=== PATIENT | male | born 1960 | race Caucasian/White ===

== ENCOUNTER 2019-05-02 15:29 | Outpatient (CLI) | payer OTHER, SELFPAY ==
--- NOTE | ~2019-05-02 | XR_ITS ---
EXAMINATION: XR chest 2V DATE: 05/02/2019 15:54 INDICATION: Chronic heart failure not due to hypertension. Chest pain and shortness of breath. TECHNIQUE: Frontal and lateral views of the chest were obtained. COMPARISON: Chest 2 views 01/16/2019, chest CT 05/28/2018 FINDINGS: There are lucencies at the lung apices, consistent with emphysema. No pleural effusion or p neumothorax. Calcified left hilar lymph nodes are consistent with old granulomatous disease. The hear t size is normal. IMPRESSION: 1. Emphysema. Reviewed, dictated and finalized at location A. [facility] IMPRESSION: 1. Emphysema.
[2019-05-02 19:00] LABS: Basophils Absolute Auto 0.1 K/mm3 (0.0-0.1); Basophils Percent Auto 1.3 % (0.2-1.2); Eosinophils Absolute Auto 0.3 K/mm3 (0-0.3); Eosinophils Percent Auto 5.5 % (0-4.4); Hematocrit 43.5 % (42.0-52.0); Hemoglobin 14.1 g/dL (14.0-18.0); Immature Granulocyte Absolute 0.01 K/mm3 (0.00-0.031); Immature Granulocyte Percent A 0.2 % (0-0.5); Lymphocytes Absolute Auto 2.55 K/mm3 (0.9-3.2); Lymphocytes Percent Auto 42.6 % (18.3-44.2); Mean Corpuscular HGB Conc 32.4 g/dl (32-36); Mean Corpuscular Hemoglobin 27.9 pg (26-34); Mean Platelet Volume 9.8 fl (7.4-10.4); Monocytes Absolute Auto 0.4 K/mm3 (0.1-0.6); Monocytes Percent Auto 6.7 % (2.6-8.5); Neutrophils Absolute Auto 2.6 K/mm3 (1.3-6.7); Neutrophils Percent Auto 43.7 % (45.5-73.1); Platelet Count Result 175 k/mm3 (150-375); Red Blood Count 5.06 M/mm3 (4.6-6.20)
[2019-05-02 19:11] LABS: Alanine Aminotransferase 28 U/L (4-50); Albumin Level 4.6 g/dL (3.5-5.1); Alkaline Phosphatase 103 U/L (38-126); Aspartate Amino Transferase 28 U/L (17-59); Bilirubin,Total 0.6 mg/dL (0.2-1.3); Blood Urea Nitrogen 11 mg/dL (9-20); Calcium 9.7 mg/dL (8.4-10.2); Carbon Dioxide 29 mmol/L (22-30); Chloride 104 mmol/L (98-107); Estimated Glomerular Filt Rate > 60; Glucose 89 mg/dL (75-110); Potassium 3.8 mmol/L (3.4-5.0); Sodium 144 mmol/L (137-145)
[2019-05-02 19:19] LABS: NT Pro B Type Natriuretic Pept 550 PG/ML (5-100)
== END 2019-05-02 15:30 | disposition home or self-care (01) ==
LOC: ANHLAB 15:32
PROVIDERS: PCP Family Medicine; Visit Provider Nurse Practitioner Adult Health
DX: I25.5 Ischemic cardiomyopathy (principal); J43.9 Emphysema, unspecified
CPT/HCPCS: 36415; 71046; 80053; 83880; 85025

== ENCOUNTER 2019-09-15 09:20 | Outpatient (CLI) | payer OTHER, SELFPAY ==
[2019-09-15 10:51] LABS: Basophils Absolute Auto 0.1 K/mm3 (0.0-0.1); Basophils Percent Auto 0.8 % (0.2-1.2); Eosinophils Absolute Auto 0.3 K/mm3 (0-0.3); Eosinophils Percent Auto 4.1 % (0-4.4); Hematocrit 42.3 % (42.0-52.0); Hemoglobin 13.9 g/dL (14.0-18.0); Immature Granulocyte Absolute 0.01 K/mm3 (0.00-0.031); Immature Granulocyte Percent A 0.1 % (0-0.5); Lymphocytes Absolute Auto 2.38 K/mm3 (0.9-3.2); Lymphocytes Percent Auto 33.7 % (18.3-44.2); Mean Corpuscular HGB Conc 32.9 g/dl (32-36); Mean Corpuscular Hemoglobin 28.5 pg (26-34); Mean Corpuscular Volume 86.7 fl (80-100); Mean Platelet Volume 9.3 fl (7.4-10.4); Monocytes Absolute Auto 0.5 K/mm3 (0.1-0.6); Monocytes Percent Auto 6.8 % (2.6-8.5); Neutrophils Absolute Auto 3.9 K/mm3 (1.3-6.7); Neutrophils Percent Auto 54.5 % (45.5-73.1); Platelet Count Result 186 k/mm3 (150-375); Red Blood Count 4.88 M/mm3 (4.6-6.20); Red Cell Distribution Width 12.6 % (11.5-14.5); White Blood Count 7.1 K/mm3 (4.5-10.0)
[2019-09-15 10:53] LABS: Alanine Aminotransferase 24 U/L (4-50); Albumin Level 4.8 g/dL (3.5-5.1); Alkaline Phosphatase 102 U/L (38-126); Aspartate Amino Transferase 27 U/L (17-59); Bilirubin,Total 0.5 mg/dL (0.2-1.3); Blood Urea Nitrogen 15 mg/dL (9-20); Calcium 10.3 mg/dL (8.4-10.2); Carbon Dioxide 29 mmol/L (22-30); Chloride 104 mmol/L (98-107); Estimated Glomerular Filt Rate > 60; Glucose 104 mg/dL (75-110); Potassium 4.7 mmol/L (3.4-5.0); Sodium 140 mmol/L (137-145)
[2019-09-15 11:05] LABS: Hemoglobin A1C 5.8 % (<5.7)
== END 2019-09-15 09:21 | disposition home or self-care (01) ==
PROVIDERS: PCP Family Medicine; Visit Provider Nurse Practitioner Adult Health
DX: K62.5 Hemorrhage of anus and rectum (principal); I25.5 Ischemic cardiomyopathy; Z87.898 Personal history of other specified conditions
CPT/HCPCS: 36415; 80053; 83036; 85025

== ENCOUNTER 2019-10-06 15:21 | Observation (INO) | payer OTHER, SELFPAY ==
[2019-10-06] VITALS (12 sets, daily range): BP systolic 113–186; BP diastolic 67–132; PULSE 48–64; RESP 11–20; TEMP 36.7–36.8; O2SAT 97–100; BMI 30.7
--- NOTE | ~2019-10-06 | XR_ITS ---
XR chest 2V 10/06/2019 16:01 Indication: Chest pain Procedure: AP and lateral views of the chest Comparison: Comparison to multiple prior studies sequentially, with oldest reviewed study dated 04/06. Findings: Heart size normal. No focal air space disease, pulmonary edema, pleural effusion or suspect ed pneumothorax. Impression: 1: No acute cardiopulmonary disease. Reviewed, dictated and finalized at location B. Impression: 1: No acute cardiopulmonary disease.
--- NOTE | ~2019-10-06 | CT_ITS ---
EXAMINATION: Janes Yung MD DATE: 10/06/2019 17:15 INDICATION: Chest pain. TECHNIQUE: Computed tomographic angiography (CTA) of the chest, abdomen, and pelvis was performed wit h 100 mL Omnipaque-350 intravenous contrast. Automated exposure control and iterative reconstruction technique were employed. The dose-length product was 1299.76 mGy-cm. Maximum intensity projection 3D- reconstructions of the aorta and other arteries were constructed by the technologist on a separate wo rkstation. COMPARISON: CT chest 05/28/2018, CT abdomen and pelvis 04/06/2017 FINDINGS: CHEST CTA: There is moderate emphysema. There is mild atelectasis bilaterally. No pleural effusion. There is lef t ventricular enlargement of the heart. There are coronary artery calcifications. No pericardial effu iza. Thoracic aorta is normal in caliber. No aneurysm or dissection. Calcified left hilar lymph node s are consistent with old granulomatous disease. There is moderate thoracic spondylosis. ABDOMEN AND PELVIS CTA: Calcifications in the liver and spleen are consistent with old granulomatous disease. The gallbladder , pancreas, adrenal glands, and right kidney are normal. There is a 1.7 cm cyst in left kidney. The p rostate is mildly enlarged. There is a small left inguinal hernia containing fat. There is diverticul osis of the colon without evidence of diverticulitis. There are no dilated loops of bowel. The append ix is normal. Abdominal aorta is normal in caliber. There is mild stenosis of celiac axis. There is n o significant stenosis of superior mesenteric artery, the renal arteries, or inferior mesenteric lulu ry. There are no pathologically enlarged lymph nodes. There is no free intraperitoneal fluid. There i s mild lumbar spondylosis. IMPRESSION: 1. No aortic aneurysm or dissection. 2. Moderate emphysema. 3. Small left inguinal hernia containing fat. Reviewed, dictated and finalized at location A.
--- NOTE | 2019-10-06 15:31 | ECG_ITS ---
Measurements Intervals [place] Rate: 51 P: 49 WI: 145 QRS: -6 QRSD: 101 T: 83 QT: 431 QTc: 398 Interpretive Statements SINUS BRADYCARDIA ANTEROSEPTAL INFARCT, AGE INDETERMINATE BORDERLINE ST-T WAVE ABNORMALITY- LAT/HIGH LAT LEADS ABNORMAL ECG Electronically Signed On 10-06-2019 16:06:04 CDT by Jona Argueta D.O.
[2019-10-06 15:47] LABS: Basophils Absolute Auto 0.1 K/mm3 (0.0-0.1); Eosinophils Absolute Auto 0.3 K/mm3 (0-0.3); Eosinophils Percent Auto 4.5 % (0-4.4); Hematocrit 43.3 % (42.0-52.0); Hemoglobin 14.5 g/dL (14.0-18.0); Immature Granulocyte Absolute 0.01 K/mm3 (0.00-0.031); Immature Granulocyte Percent A 0.2 % (0-0.5); Lymphocytes Absolute Auto 2.38 K/mm3 (0.9-3.2); Lymphocytes Percent Auto 39.3 % (18.3-44.2); Mean Corpuscular HGB Conc 33.5 g/dl (32-36); Mean Corpuscular Hemoglobin 28.9 pg (26-34); Mean Corpuscular Volume 86.4 fl (80-100); Mean Platelet Volume 9.7 fl (7.4-10.4); Monocytes Absolute Auto 0.3 K/mm3 (0.1-0.6); Monocytes Percent Auto 4.8 % (2.6-8.5); Neutrophils Percent Auto 50.2 % (45.5-73.1); Platelet Count Result 166 k/mm3 (150-375); Red Blood Count 5.01 M/mm3 (4.6-6.20); Red Cell Distribution Width 12.4 % (11.5-14.5); White Blood Count 6.1 K/mm3 (4.5-10.0)
[2019-10-06 15:56] LABS: INR 1.1; Prothrombin Time 13.6 Seconds (11.1-14.7)
[2019-10-06 15:57] LABS: Partial Thromboplastin Time 29.4 SECONDS (22.3-36.8)
[2019-10-06 15:59] LABS: Blood Urea Nitrogen 10 mg/dL (9-20); Calcium 9.2 mg/dL (8.4-10.2); Carbon Dioxide 23 mmol/L (22-30); Chloride 105 mmol/L (98-107); Estimated CRCL calculation 107 ml/min; Estimated Glomerular Filt Rate > 60; Glucose 129 mg/dL (75-110); Potassium 3.4 mmol/L (3.4-5.0); Sodium 138 mmol/L (137-145)
[2019-10-06 16:09] LABS: Troponin I < 0.012 ng/mL (0.000-0.034)
[2019-10-06] MEDS: MORPHINE SULFATE 4 MG/ML INJ IV PUSH ×2 (17:19→18:09)
--- NOTE | 2019-10-06 18:17 | PC.NURSE ---
spoke to dietary, ordered food tray for pt
--- NOTE | 2019-10-06 18:18 | PC.NURSE ---
per jonh edp dr sarabjit campos to order heart healthy diet
--- NOTE | 2019-10-06 18:23 | ED.CHESTPAIN ---
HPI - Chest Pain General Chief Complaint: Chest Pain Stated Complaint: chest pain Time Seen by Provider: 10/06/19 16:20 Source: patient Mode of arrival: ambulatory Limitations: no limitations History of Present Illness HPI narrative: 59-year-old with a history of hypertension, CAD s/p stents in LAD, hyperlipidemia here with complaints of midsternal chest pain radiating into his back since early this morning. Patient states that he had a similar pain last night however was able to sleep and woke up again this morning with similar pain. He states that pain is continuous and steady in nature denies any difficulty in breathing, nausea, vomiting. No history of lifting heavy weights. MD complaint: chest pain Pertinent past history: coronary artery disease Onset (ago): hour(s) (8) Timing of current episode: constant Prior episodes: Yes Pain location: substernal Pain radiation: back Severity: moderate Quality: aching Relieving factors: nothing Exacerbating factors: nothing Treatment prior to arrival: none Risk Factors Coronary artery disease risk factors: smoking history, hyperlipidemia and hypertension Related Data Home Medications Medication Instructions Recorded Confirmed acetaminophen 500 mg capsule 500 mg PO Q6H PRN 03/09/19 aspirin 81 mg tablet,delayed 81 mg PO DAILY 03/09/19 release citalopram 20 mg tablet 20 mg PO DAILY 03/09/19 cyanocobalamin (vitamin B-12) 1,000 mcg PO DAILY 03/09/19 1,000 mcg capsule ergocalciferol (vitamin D2) 50 mcg 50 mcg PO DAILY 03/09/19 (2,000 unit) capsule fluticasone propionate 50 1 spray NASAL DAILY 03/09/19 mcg/actuation nasal spray,suspension losartan 50 mg tablet 50 mg PO DAILY 03/09/19 metoprolol tartrate 25 mg tablet 25 mg PO DAILY 03/09/19 nitroglycerin 0.4 mg sublingual 0.4 mg SUBLINGUAL Q5M PRN 03/09/19 tablet rosuvastatin 20 mg tablet 20 mg PO DAILY 03/09/19 ticagrelor 90 mg tablet 90 mg PO Q12H 03/09/19 tiotropium bromide 18 mcg capsule 1 cap INHALATION DAILY 03/09/19 with inhalation device Allergies Allergy/AdvReac Type Severity Reaction Status Date / Time bee venom protein (honey bee) Allergy Unknown Unknown Verified 10/06/19 15:34 tramadol Allergy Unknown Unknown Verified 10/06/19 15:34 Honey Bee Allergy Unknown Unknown Uncoded 10/06/19 15:34 Review of Systems Review of Systems: All systems reviewed & are unremarkable except as noted in HPI and below Constitutional: Constitutional: Reports as per HPI Eyes: Eyes: Reports as per HPI and Reports no additional eye complaints ENT: Reports as per HPI Cardiovascular: Cardiovascular: Reports as per HPI Respiratory: Respiratory: Reports no additional respiratory complaints Gastrointestinal: Gastrointestinal: Reports no additional gastrointestinal complaints Musculoskeletal: Musculoskeletal: Reports no additional musculoskeletal complaints Integumentary/Breasts: Skin/Breast: Reports system reviewed and no additional complaints, except as docu Neurologic: Reports system reviewed and no additional complaints, except as documented PMFSH Past Medical History Medical History Allergic rhinitis Anxiety Bradycardia Depression Diverticulitis Essential hypertension Eustachian tube disorder History of heroin use Hypercholesterolemia Hypokalemia Obstructive sleep apnea Prediabetes Spinal stenosis Family History Family History Other Family history of malignant neoplasm Social History Social History Smoking status: Smoker, status unknown Exam Narrative: Exam Narrative: GENERAL: Well-appearing, well-nourished, and in no acute distress. HEAD: Normocephalic, atraumatic. EYES: PERRLA and EOMI. ENT: Nares clear, no rhinorrhea or epistaxis. Mucous membranes moist. NECK: Supple. CHEST: Clear to auscultation. No respiratory
[2019-10-06] MEDS: hydrALAZINE HCL 20 MG/ML VIAL IV PUSH (18:30)
[2019-10-06 19:08] LABS: Troponin I < 0.012 ng/mL (0.000-0.034)
--- NOTE | 2019-10-06 20:42 | PC.NURSE ---
This patient, Cisco Manzo, was admitted to IMU Room 202-01 on 10/06/19 at 2016. Patient/family oriented to hospital policies and general routines including ID bracelet, bed and alarms, visiting hours, pain management, procedures, bathroom and other care routines, personal items, smoking policy, room service/diet, and visiting hours. Valuables list has been completed. Information on how to activate the Rapid Response Team has been discussed. Patient/Family are encouraged to report perceived risks to care and to ask questions if they do not understand what they are told or what they should do.
[2019-10-06] MEDS: ALBUTEROL SULFATE NEB 2.5 MG/0.5 ML INH 5 MG INHALATION (21:46)
[2019-10-06] MEDS: IPRATROPIUM BR 0.02% INH SOLN 0.5 MG/2.5 ML VIAL INHALATION (21:47)
[2019-10-06 22:03] LABS: Troponin I < 0.012 ng/mL (0.000-0.034)
[2019-10-06] MEDS: ENOXAPARIN 100 MG/ML SYRINGE SUB-Q (22:12)
--- NOTE | 2019-10-06 22:25 | PM.IMHP ---
H&P: HPI History of Present Illness Chief complaint: chest pain Narrative: Cisco Manzo is a 59 year old male who was admitted here on 01/16/2019 with a STEMI. Patient had chest pain at that time that radiated down his left arm. The patient was discharged 2 days later. The patient presented with an acute anterior wall myocardial infarction and was taken to the cardiac catheterization for emergency angiograph free and revascularization at that time. The patient received a drug-eluting stent to the LAD at that time. The patient continued to smoke cigarettes since then. He used to smoke 2 packs of cigarettes a day and then cut down to half an recently went up to 3/4 today. 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 He also has sleep apnea is intolerant of CPAP machine. The patient tells me that around 9:00 a.m. last night he was having some chest pain but then he fell asleep anywhere. He woke up at 9:00 a.m. this morning and felt fine but then at 10:00 a.m. he started had the chest pain again. He has nitro at home but did not take it. He takes a daily aspirin but did not take any extra aspirin this morning. He did not take anything to help relieve the discomfort. The patient stated that he received morphine in the emergency room here and it took the pain down to about a 2 or 3. He is still having some midsternal chest pain. Is not related to any food intake. He denies having any problems with his gallbladder and stated that his pain was severe earlier today. Was given and full-dose aspirin in the emergency room and 2 doses of morphine he was also given hydralazine as well. He does have a history of having hypertension. Cardiology has been consulted. Cardiac enzymes have been negative x2. EKG was read as bradycardia with heart rate in the 50s anterior septal infarct age indeterminate borderline ST T-wave abnormalities. Subcu Lovenox therapeutic doses have been ordered. He was also given a neb treatment as well. CT of the chest in abdomen was read as no aortic aneurysm or dissection. Moderate emphysema. Small left inguinal hernia containing fat. Chest x-ray was read as nothing acute. Date of service is 10/06/2019 Review of Systems Review of Systems: All systems reviewed & are unremarkable except as noted in HPI and below Constitutional: Constitutional: Reports as per HPI and Reports no additional constitutional complaints Eyes: Eyes: Reports as per HPI and Reports no additional eye complaints ENT: Reports system reviewed and no additional complaints, except as documented and Reports Normal hearing present Cardiovascular: Cardiovascular: Reports no additional cardiovascular complaints Respiratory: Respiratory: Reports no additional respiratory complaints and Reports no additional respiratory complaints Gastrointestinal: Gastrointestinal: Reports as per HPI and Reports no additional gastrointestinal complaints Musculoskeletal: Musculoskeletal: Reports no additional musculoskeletal complaints Integumentary/Breasts: Skin/Breast: Reports system reviewed and no additional complaints, except as docu and Reports as per HPI Neurologic: Reports system reviewed and no additional complaints, except as documented, Reports as per HPI and Reports Normal hearing present Psychiatric: Psychiatric: Reports no additional psychiatric complaints and Reports as per HPI Endocrine: Endocrine: Reports no additional endocrine complaints Hematologic/Lymphatic: Hematologic/Lymphatic: Reports no additional hematologic/lymphatic complaints Allergic/Immunologic: Allergic/Immunologic: Reports no additional allergic/immunologic complaints [facility] Past Medical History Medical History (Updated 10/06/19 @ 22:41 by Linh Cummings NP) Allergic rhinitis Anxiety BPH (benign prostatic hyperplasia) Bradycardia CAD (coronary artery disease) Depression Diverticulitis Essential hypertension Eustachian tube disorder History of heroin
[2019-10-07] VITALS (36 sets, daily range): BP systolic 100–145; BP diastolic 62–93; PULSE 50–113; RESP 12–20; TEMP 35.8–36.4; O2SAT 97–100
--- NOTE | 2019-10-07 | EST_ITS ---
Patient Info Name: Cisco Manzo Age: 59 years : 1960 Gender: Male Ht: 71 in Wt: 220 lbs BSA: 2.26 m2 HR: 52 bpm BP: 137 / 78 mmHg Heart Rhythm: Sinus Rhythm Exam Date: 10/07/2019 11:21 AM Exam Location: [facility] Patient Status: Outpatient Admit Date: 10/06/2019 Staff Ordering Physician: Benja May MD Painter [employer]: Melissa Alonzo RDCS Attending Provider: Antonia Duggan PA-C Referring Physician: Yadira FERNANDES; Exercise Technologist: Elise Covarrubias RDCS Nurse: Gudelia Cuello ANP, DALJITP-ANTIONE Exam Type: CA stress echo Study Info Indications - CAD R07.89 - Other chest pain Treadmill exercise stress echocardiogram is performed. Summary 1. Normal sinus rhythm. 2. Minor resting ST/T wave changes. 3. Normal left ventricular size, mild anteroseptal systolic dysfunction overall ejection fraction normal at 55%. 4. LV diameter increases and the anterior wall septum and apex become essentially akinetic. 5. Stress echocardiogram at a suboptimal heart rate but with echocardiographic images indicating significant anterior stress-induced ischemia as detailed above. Stress Echo Findings Left Ventricle LV diameter increases and the anterior wall septum and apex become essentially akinetic. Left Ventricle Normal left ventricular size, mild anteroseptal systolic dysfunction overall ejection fraction normal at 55%. Protocol: [place]irm[place] Stress ECG Details Stage: REST Duration (min): 3 min : 38 sec Speed (mph): 0.0 Grade (%): 0 HR (bpm): 51 SBP (mmHg): 137 DBP (mmHg): 78 METS: --- Stage: REST Duration (min): 21 min : 33 sec Speed (mph): 0.0 Grade (%): 0 HR (bpm): 62 SBP (mmHg): 137 DBP (mmHg): 78 METS: --- Stage: STAGE 1 Duration (min): 1 min : 0 sec Speed (mph): 1.7 Grade (%): 10 HR (bpm): 82 SBP (mmHg): 137 DBP (mmHg): 78 METS: --- Stage: STAGE 1 Duration (min): 1 min : 55 sec Speed (mph): 1.7 Grade (%): 10 HR (bpm): 99 SBP (mmHg): 137 DBP (mmHg): 78 METS: --- Stage: RECOVERY Duration (min): 0 min : 4 sec Speed (mph): 1.5 Grade (%): 0 HR (bpm): 100 SBP (mmHg): 137 DBP (mmHg): 78 METS: --- Stage: RECOVERY Duration (min): 1 min : 4 sec Speed (mph): 0.0 Grade (%): 0 HR (bpm): 77 SBP (mmHg): 137 DBP (mmHg): 78 METS: --- Stage: RECOVERY Duration (min): 2 min : 4 sec Speed (mph): 0.0 Grade (%): 0 HR (bpm): 59 SBP (mmHg): 135 DBP (mmHg): 64 METS: --- Stage: RECOVERY Duration (min): 3 min : 4 sec Speed (mph): 0.0 Grade (%): 0 HR (bpm): 55 SBP (mmHg): 135 DBP (mmHg): 63 METS: --- Stage: RECOVERY Duration (min): 4 min : 4 sec Speed (mph): 0.0 Grade (%): 0 HR (bpm): 57 SBP (mmHg): 135 DBP (mmHg): 63 METS: --- Stage: RECOVERY Duration (min): 5 min : 4 sec Speed (mph): 0.0 Grade (%): 0 HR (bpm): 57 SBP (mmHg): 129 DBP (mmHg): 64
[2019-10-07] MEDS: NITROGLYCERIN OINTMENT 1 INCH DOSE TRANSDERM ×3 (00:17→23:29)
[2019-10-07] MEDS: ACETAMINOPHEN 325 MG TABLET 650 MG PO ×2 (00:22→09:20)
[2019-10-07] MEDS: FAMOTIDINE 20 MG/2 ML VIAL IV PUSH ×3 (00:55→21:57)
[2019-10-07] MEDS: carvediloL 12.5 MG TABLET PO ×3 (00:55→21:57)
[2019-10-07 05:22] LABS: Alanine Aminotransferase 12 U/L (4-50); Albumin Level 3.8 g/dL (3.5-5.1); Alkaline Phosphatase 88 U/L (38-126); Aspartate Amino Transferase 16 U/L (17-59); Bilirubin,Total 0.3 mg/dL (0.2-1.3); Blood Urea Nitrogen 11 mg/dL (9-20); CRP < 0.5 mg/dL (<1.0); Calcium 8.9 mg/dL (8.4-10.2); Carbon Dioxide 24 mmol/L (22-30); Chloride 108 mmol/L (98-107); Estimated CRCL calculation 107 ml/min; Estimated Glomerular Filt Rate > 60; Glucose 92 mg/dL (75-110); Magnesium 1.9 mg/dL (1.6-2.3); Potassium 3.4 mmol/L (3.4-5.0); Sodium 139 mmol/L (137-145)
[2019-10-07 05:26] LABS: Lactic Acid 0.6 mmol/L (0.7-2.1)
[2019-10-07] MEDS: IPRATROPIUM BR 0.02% INH SOLN 0.5 MG/2.5 ML VIAL INHALATION ×3 (08:19→19:23)
[2019-10-07] MEDS: ALBUTEROL SULFATE NEB 2.5 MG/0.5 ML INH 5 MG INHALATION ×3 (08:19→19:23)
[2019-10-07] MEDS: ROSUVASTATIN 10 MG TABLET 20 MG PO (08:57)
[2019-10-07] MEDS: LOSARTAN POTASSIUM 50 MG TABLET 100 MG PO (08:57)
[2019-10-07] MEDS: TICAGRELOR 90 MG TABLET PO ×2 (08:57→21:57)
[2019-10-07] MEDS: CITALOPRAM HYDROBROMIDE 20 MG TABLET 10 MG PO (08:58)
[2019-10-07] MEDS: ENOXAPARIN 100 MG/ML SYRINGE SUB-Q ×2 (08:59→21:57)
[2019-10-07] MEDS: ASPIRIN 81 MG CHEWABLE TABLET PO (09:04)
[2019-10-07] MEDS: ERGOCALCIFEROL 50,000 UNIT CAPSULE 50000 UNITS PO (09:10)
--- NOTE | 2019-10-07 10:39 | PM.CNCAR ---
Assessment and Plan Additional Plan 59-year-old man with episodes of intermittent chest pain yesterday and potentially for couple of days. He has known coronary artery disease as detailed above. He was well revascularized following his anterior infarction about 9 months ago and has been doing well since then. Fortunately his electrocardiogram and ECGs do not show any evidence of an acute coronary syndrome. Unfortunately he has continued to smoke. I will evaluate him noninvasively at this time with a stress echocardiogram and if the results are favorable he can be discharged. Benja May MD [facility] History of Present Illness History of Present Illness Consult date/time: Date of service: 10/07/19 10:39 Consult reason: chest pain Reason For Visit: chest pain Narrative: This is a 59-year-old man known to me with history of coronary artery disease admitted to the hospital from the emergency room where he was evaluated last afternoon because of chest pain. Patient had states that yesterday he started to have some episodes of chest pain in retrospect he has been having some episodes often on 1st several days. He describes episodes of an epigastric discomfort that seems to come and go in an unpredictable fashion. It is not associated with any shortness of breath diaphoresis or radiation to any other location. He states that he had an episode of this yesterday discussed it with his and there was enough concern to recommend or discussed coming to the emergency room since he has a history of coronary artery disease. The patient's coronary history dates back to December of 2018 when he presented to this hospital with chest pain and had obvious evidence of an acute anterior wall IN at that time. He was brought emergently to the cardiac catheterization lab and found to have a total occlusion of the proximal, near ostial segment of his LAD. He underwent emergency PCI deploying a 3.5 x 26 mm drug-eluting stent with a nice anatomical result restoring [place] 3 flow in the vessel. There was no left main circumflex or right coronary disease at that time. His initial ejection fraction was low at about 20% but echocardiographically has recovered significantly in the office he had a echocardiogram done this spring which showed an improvement of 41%. There was of course some discussion in the early stages of this about potentially requiring a defibrillator but with good improvement in his EF that was of course not pursued. He was last seen in our office interestingly just several days ago on 09/29/2019 at which time he states that he was feeling well he was not reporting any chest pain at that time. His electrocardiogram shows a sinus mechanism with some persistent precordial T-wave changes but no ischemic ST segment deviation is noted. His troponin levels are negative x3 sets. Review of Systems Constitutional: Constitutional: Reports no additional constitutional complaints Eyes: Eyes: Reports no additional eye complaints ENT: Reports system reviewed and no additional complaints, except as documented Cardiovascular: Cardiovascular: Reports as per HPI Respiratory: Respiratory: Reports as per HPI Gastrointestinal: Gastrointestinal: Reports no additional gastrointestinal complaints Genitourinary: Genitourinary: Reports no additional male genitourinary complaints Musculoskeletal: Musculoskeletal: Reports no additional musculoskeletal complaints Integumentary/Breasts: Skin/Breast: Reports system reviewed and no additional complaints, except as docu Neurologic: Reports system reviewed and no additional complaints, except as documented Psychiatric: Psychiatric: Reports no additional psychiatric complaints Endocrine: Endocrine: Reports no additional endocrine complaints Hematologic/Lymphatic: Hematologic/Lymphatic: Reports no additional hematologic/lymphatic complaints Allergic/Immunologic: Allergic/Immunologic: Reports no additional allergic/immunol
--- NOTE | 2019-10-07 12:25 | PM.IMPN ---
Progress Note: A&P Assessment and Plan (1) Chest pain: Qualifiers: Chest pain type: unspecified Qualified Code(s): R07.9 - Chest pain, unspecified Code(s): R07.9 - Chest pain, unspecified Status: Acute Assessment and Plan: He has a PMH of CAD with STEMI 12/2018 s/p PCI to the LAD using Orsiro drug-eluting stent. Troponins were negative x3. EKG revealed sinus bradycardia with anteroseptal infarct and borderline ST-T abnormality in the lateral/high lateral leads. QTc normal at 398. CTA chest/abdomen/pelvis revealed normal gallbladder and pancreas with no other acute findings. There was no evidence of AAA/dissection. He had relief with morphine and transdermal nitro. He still reports mild substernal discomfort 04/01. He did not tolerate the exercise stress test well and reports that he developed significant dyspnea and subsequent chest pain which stopped after exercise. He was treated with pepcid for possible GERD although his symptoms do not seem to suggest GERD. He is on therapeutic lovenox. Continue lovenox, ASA, and ticagrelor. Continue carvedilol. Cardiology is on board. Management per cardiology. I discussed smoking cessation with the patient for 5 minutes. He is smoking 1PPD. He previously smoked 2PPD. I discussed pharmacotherapy and he will consider nicotine patches. Will check a lipase. (2) Essential hypertension: Code(s): I10 - Essential (primary) hypertension Status: Chronic Assessment and Plan: Blood pressures were reviewed and are reasonably controlled. He had one low reading of 100/62 4:07AM 10/06. Continue losartan and carvedilol. Contiue to monitor. (3) COPD (chronic obstructive pulmonary disease): Code(s): J44.9 - Chronic obstructive pulmonary disease, unspecified Status: Acute Assessment and Plan: Continue tiotropium bromide and albuterol PRN. (4) BPH (benign prostatic hyperplasia): Code(s): N40.0 - Benign prostatic hyperplasia without lower urinary tract symptoms Status: Chronic Assessment and Plan: The patient reports hx of TURP. He has no acute issues. (5) Hypercholesterolemia: Code(s): E78.00 - Pure hypercholesterolemia, unspecified Status: Chronic Assessment and Plan: Continue high-intensity statin therapy with rosuvastatin. Will repeat lipid panel. (6) Anxiety: Code(s): F41.9 - Anxiety disorder, unspecified Status: Chronic Assessment and Plan: Chronic with no acute issues. Continue citalopram. He reports that he uses marijuana occasional for anxiety as well. (7) Depression: Code(s): F32.9 - Major depressive disorder, single episode, unspecified Status: Chronic Assessment and Plan: Chronic with no acute issues. Continue citalopram. (8) DVT prophylaxis: Code(s): Z29.9 - Encounter for prophylactic measures, unspecified Status: Acute Assessment and Plan: He is on therapeutic lovenox. Subjective Date/time seen: 10/07/19 12:25 Interval history: Mr. Manzo is a 59 y.o. male who is seen in follow-up for chest pain. He just underwent a treadmill stress test but reports that he developed significant dyspnea and sharp substernal chest pain and could not complete the study. He reports mild 1/10 pain at this time. He describes that the pain is sharp, substernal, and feels like it goes straight through to his pack . He reports that his pain radiates to the shoulder blades bilaterally. His episode yesterday lasted from 2PM to 8-9PM. He reports he was walking around on his deck at the time. He did not take nitro as he does not like how it makes him feel. He reports prior episodes with activity but the pain always ceases shortly. He denies association to food intake. He denies dyspepsia. He denies change in bowel habits, nausea, and vomiting. He reports that his pain is better when he is sitting up. He has no other complaints. Arthur
[2019-10-07 13:13] LABS: Lipase 35 U/L (23-300)
[2019-10-07 14:05] LABS: Cholesterol 106 mg/dL (0-200); HDL Direct 31 mg/dL; Triglycerides 89 mg/dL (<150)
[2019-10-07 14:16] LABS: LDL Cholesterol Direct 50 mg/dL
--- NOTE | 2019-10-07 15:50 | WPDMODSED ---
Moderate Sedation Note-Pt Data Patient Data Diagnosis: intermittent episodes of chest pain both with and without exertion coronary artery disease with anterior wall infarction interrupted with stenting of the LAD in its ostial segment in December of 2018 using a 3.5 mm drug-eluting stent patient med no circumflex or right coronary disease at that time ongoing tobacco use stress echo today demonstrating large wall motion abnormality in the distribution of the LAD Present Complaint: 59-year-old man as stated above with known coronary disease anterior wall LA treated with stenting of the LAD in its ostial segment about 9 months ago. Patient has continued to smoke. Unfortunately now has intermittent chest pain and stress echo demonstrating wall motion abnormalities compatible with anterior ischemia Procedure to be performed/Plan: coronary angiography consider revascularization depending on these findings Allergies Allergy/AdvReac Type Severity Reaction Status Date / Time bee venom protein (honey bee) Allergy Severe Anaphylaxis Verified 10/06/19 21:04 tramadol Allergy Unknown Nausea and Verified 10/06/19 21:04 Vomiting Honey Bee Allergy Severe Anaphylactic Uncoded 10/06/19 21:04 Shock Home Medications Medication Instructions Recorded Confirmed Type acetaminophen 500 mg capsule 500 mg PO Q6H PRN 03/09/19 10/06/19 History aspirin 81 mg tablet,delayed 81 mg PO DAILY 03/09/19 10/06/19 History release citalopram 20 mg tablet 10 mg PO DAILY 03/09/19 10/06/19 History losartan 50 mg tablet 100 mg PO DAILY 03/09/19 10/06/19 History nitroglycerin 0.4 mg sublingual 0.4 mg SUBLINGUAL Q5M PRN 03/09/19 10/06/19 History tablet rosuvastatin 20 mg tablet 20 mg PO DAILY 03/09/19 10/06/19 History ticagrelor 90 mg tablet 90 mg PO Q12H 03/09/19 10/06/19 History tiotropium bromide 18 mcg capsule 1 cap INHALATION DAILY 03/09/19 10/06/19 History with inhalation device albuterol sulfate 2 puff INHALATION Q4H PRN 10/06/19 10/06/19 History carvedilol 12.5 mg PO BID 10/06/19 10/06/19 History ergocalciferol (vitamin D2) 1,250 mcg PO WEEKLY 10/06/19 10/06/19 History [Vitamin D2] Current Medications: Active Medications Acetaminophen (Tylenol Tablet) 650 mg PO Q4H PRN PRN Reason: Mild Pain (1-3) or Fever Last Admin: 10/07/19 09:20 Dose: 650 mg Documented by: Albuterol (Albuterol Sulf Neb 2.5mg/0.5ml) 5 mg INHALATION Q6HRT [facility] Last Admin: 10/07/19 14:04 Dose: 5 mg Documented by: Aspirin (Aspirin Chewable) 81 mg PO DAILY@0800 [facility] Last Admin: 10/07/19 09:04 Dose: 81 mg Documented by: Carvedilol (Coreg) 12.5 mg PO Q12HR [facility] Last Admin: 10/07/19 08:57 Dose: 12.5 mg Documented by: Citalopram Hydrobromide (Celexa) 10 mg PO DAILY [facility] Last Admin: 10/07/19 08:58 Dose: 10 mg Documented by: Enoxaparin Sodium (Lovenox) 100 mg SUB-Q Q12H [facility] Last Admin: 10/07/19 08:59 Dose: 100 mg Documented by: Ergocalciferol (Drisdol) 50,000 unit PO Fr@0900 [facility] Last Admin: 10/07/19 09:10 Dose: 50,000 unit Documented by: Famotidine (Pepcid Iv) 20 mg IV PUSH Q12HR [facility] Last Admin: 10/07/19 08:57 Dose: 20 mg Documented by: Hydromorphone HCl (Dilaudid Inj) 0.5 mg IV PUSH Q4H PRN PRN Reason: Pain Rated 7-10 Ipratropium Howard (Atrovent Neb) 0.5 mg INHALATION Q6HRT [facility] Last Admin: 10/07/19 14:05 Dose: 0.5 mg Documented by: Losartan Potassium (Cozaar) 100 mg PO DAILY [facility] Last Admin: 10/07/19 08:57 Dose: 100 mg Documented by: Nitroglycerin (Nitroglycerin Oint 1 Inch) 1 inch TRANSDERM Q6HR [facility] Last Admin: 10/07/19 12:56 Dose: Not Given Documented by: Nitroglycerin (Nitrostat Subl 0.4 Mg (1/150)) 0.4 mg SUBLINGUAL Q5M PRN PRN Reason: Chest Pain Ondansetron HCl (Zofran Inj) 4 mg IV PUSH Q4H PRN PRN Reason: Nausea Rosuvastatin Calcium (Crestor) 20 mg PO DAILY [facility] Last Admin: 10/07/19 08:57 Dose: 20 mg Documented by: Ticagrelor (Brilinta) 90 mg PO Q12HR [facility] Last Admin: 10/07/19 08:57 Dose: 90 mg D
--- NOTE | 2019-10-07 16:21 | P.PCNCC_ITS ---
Cardiac Cath Procedure Note Date of procedure:: 10/07/19 Performing physician:: Benja May MD Indication:: history of coronary artery disease with previous anterior infarction intermittent chest pain abnormal stress echocardiogram Brief clinical history:: this is a 59-year-old patient who presented December of 2018 acute anterior infarction and had a proximal, near ostial occlusion of the LAD. This was treated successfully using a 3.5 x 26 mm drug-eluting stent with a good anatomical result. He now is experiencing episodes of intermittent chest pain and had a stress echocardiogram today which was electrocardiographically negative but there were wall motion abnormalities indicative of anterior ischemia. Follow-up angiography has therefore been recommended Procedure Procedure performed:: follow-up coronary angiography Sedation/Medication given:: fentanyl 50 mg Versed 2 mg case start time 1606 p.m. case end time 4:19 p.m. sedation provided by Alfredo Christensen RN, trained observer Access site:: right femoral Estimated blood loss:: 15 cc Procedure note:: patient was brought to the cardiac catheterization lab in the postabsorptive state. The right femoral triangle was prepared in fashion. Anesthesia was provided with 1% lidocaine infiltrated locally. Following this the femoral artery was punctured and a 5 Tajik vascular sheath was placed. He underwent diagnostic right coronary angiogram using a 5 Tajik JR4 catheter. He then underwent diagnostic left coronary angiogram using a 5 Tajik FL4 catheter. Left coronary was injected multiple multiple projections. The cine films were then reviewed and the case was terminated. The patient was taken to the holding area for manual sheath removal. Findings:: Central aortic pressure was 158/82 the left ventricle was not injected as the LV was studied by echocardiography and resting wall motion was modestly depressed. The left main coronary artery is short caliber and widely patent the LAD is a medium caliber vessel extending down to the apex. There is visible stent material from the ostium of the LAD into the 1st portion. The stented area appears to be widely patent with no loss of lumen and [place] 3 flow in the vessel. Circumflex is a moderate to large caliber vessel giving rise the marginal branches and is smooth free of disease right coronary artery is large caliber dominant to the posterior circulation remains angiographically normal Conclusion:: coronary artery disease which is well revascularized following stent deployment to the LAD ostium in December 2018 symptoms of chest pain and abnormal stress echocardiographic findings which can be treated medically based on these angiographic findings Benja May MD [facility]
[2019-10-08] VITALS (11 sets, daily range): BP systolic 124–140; BP diastolic 78–88; PULSE 55–66; RESP 16–18; TEMP 35.7–36.1; O2SAT 82–100
[2019-10-08] MEDS: ALBUTEROL SULFATE NEB 2.5 MG/0.5 ML INH 5 MG INHALATION ×2 (01:25→07:59)
[2019-10-08] MEDS: IPRATROPIUM BR 0.02% INH SOLN 0.5 MG/2.5 ML VIAL INHALATION ×2 (01:25→07:59)
[2019-10-08] MEDS: NITROGLYCERIN OINTMENT 1 INCH DOSE TRANSDERM (06:17)
[2019-10-08] MEDS: ASPIRIN 81 MG CHEWABLE TABLET PO (09:01)
[2019-10-08] MEDS: ENOXAPARIN 100 MG/ML SYRINGE SUB-Q (09:01)
[2019-10-08] MEDS: carvediloL 12.5 MG TABLET PO (09:01)
[2019-10-08] MEDS: LOSARTAN POTASSIUM 50 MG TABLET 100 MG PO (09:02)
[2019-10-08] MEDS: TICAGRELOR 90 MG TABLET PO (09:02)
[2019-10-08] MEDS: ISOSORBIDE MONONITRATE 60 MG TAB.ER.24H PO (09:02)
[2019-10-08] MEDS: CITALOPRAM HYDROBROMIDE 20 MG TABLET 10 MG PO (09:02)
[2019-10-08] MEDS: FAMOTIDINE 20 MG/2 ML VIAL IV PUSH (09:02)
[2019-10-08] MEDS: ROSUVASTATIN 10 MG TABLET 20 MG PO (09:02)
[2019-10-08] MEDS: ACETAMINOPHEN 325 MG TABLET 650 MG PO (09:09)
--- NOTE | 2019-10-08 10:45 | PM.PNCARD ---
Progress Note: A&P Additional Plan persistent chest pain, pain is atypical and likely non cardiac, normal enzymes, no dynamic EKG changes, LHC with no obstructive disease, pain is worse with stress and has been having anxiety and depression symptoms recently. it's still possible that pain is related to microvascular disease. Plan, cont on DAPT, B-liza, losartan and add imdur 30 mg daily, consider adding trial of PPI and also modification of anxiety/depression medications. Subjective Date/time seen: 10/08/19 10:45 Interval history: no acute events continue to have chest pain but mild and improves with tylenol Pain is right sides mild to moderate, sharp and radiates to back. his pain is worse with stress and activity and improves with tylenol. Review of Systems Review of Systems: All systems reviewed & are unremarkable except as noted in HPI and below Exam Const: General: comfortable and no acute distress Eyes: General: appearance normal, both eyes and all related structures Neck: Neck: supple and no JVD Carotids: no bruits Resp: Effort & Inspection: normal respiratory effort Auscultation: clear to auscultation bilaterally, no crackles and no rales Cardio: Rate: regular rate Rhythm: regular rhythm Heart sounds: no murmurs Extrem: Right lower extremity: normal capillary refill; no edema Left lower extremity: normal capillary refill; no edema Objective Data Vital Signs Vital Signs: Vital Signs - 24 hr 10/07/19 12:00 10/07/19 13:54 10/07/19 14:00 Temperature 35.8 C L Pulse Rate 56 L 61 53 L Respiratory Rate 16 Blood Pressure 135/87 Pulse Oximetry 98 10/07/19 14:05 10/07/19 14:14 10/07/19 16:30 Temperature 36.4 C L Pulse Rate 55 L 59 L 55 L Respiratory Rate 20 20 12 Blood Pressure 134/84 Pulse Oximetry 100 10/07/19 17:00 10/07/19 17:15 10/07/19 17:30 Temperature Pulse Rate 56 L 54 L 52 L Respiratory Rate 14 14 16 Blood Pressure 120/79 141/93 H 134/77 Pulse Oximetry 98 100 98 10/07/19 17:45 10/07/19 18:00 10/07/19 18:15 Temperature Pulse Rate 51 L 51 L 61 Respiratory Rate 14 13 Blood Pressure 132/80 129/82 Pulse Oximetry 100 99 10/07/19 18:30 10/07/19 19:00 10/07/19 19:23 Temperature 35.9 C L 36.0 C L Pulse Rate 58 L 60 53 L Respiratory Rate 20 20 14 Blood Pressure 134/84 138/80 Pulse Oximetry 98 100 97 10/07/19 19:33 10/07/19 20:00 10/07/19 21:00 Temperature 36.1 C L 36.1 C L Pulse Rate 59 L 56 L 59 L Respiratory Rate 16 16 16 Blood Pressure 125/78 119/74 Pulse Oximetry 100 100 10/07/19 21:57 10/07/19 22:00 10/07/19 23:00 Temperature 36.0 C L 36.1 C L Pulse Rate 58 L 60 56 L Respiratory Rate 16 Blood Pressure 136/86 140/81 Pulse Oximetry 99 99 10/07/19 23:23 10/07/19 23:24 10/07/19 23:26 Temperature Pulse Rate Respiratory Rate Blood Pressure 140/81 132/93 H 145/90 H Pulse Oximetry 10/08/19 00:00 10/08/19 01:27 10/08/19 01:31 Temperature 36.0 C L Pulse Rate 56 L 66 64 Respiratory Rate 16 18 16 Blood Pressure 140/81 Pulse Oximetry 99 10/08/19 02:00 10/08/19 04:00 10/08/19 05:50 Temperature 36.1 C L Pulse Rate 56 L 56 L 57 L Respiratory Rate 16 Blood Pressure 124/78 Pulse Oximetry 99 10/08/19 08:00 10/08/19 08:02 10/08/19 08:04 Temperature 35.7 C L Pulse Rate 59 L 65 Respiratory Rate 16 18 Blood Pressure 140/88 Pulse Oximetry 100 82 L 10/08/19 09:01 10/08/19 10:00 Temperature Pulse Rate 65 57 L Respiratory Rate Blood Pressure Pulse Oximetry Intake/Output Intake/Output: Intake & Output 10/05/19 10/06/19 10/07/19 10/08/19 23:59 23:59 23:59 23:59 Intake Total 830 840 Output Total 2230 950 Balance -1400 -110 Meds/Results Medications: Active Medications Generic Name Dose Route Start Last Admin Trade Name Freq PRN Reason Stop Dose Admin Acetaminophen 650 mg 10/06/19 18:33 10/08/19 09:09 Tylenol Tablet PO 650 mg Q4H PRN
--- NOTE | 2019-10-08 11:47 | PM.DS ---
DS: Admitting Diagnosis Admitting Diagnosis Admitting Diagnosis: Chest pain, unspecified DS: Discharge Diagnosis Discharge Diagnosis (1) Chest pain: Qualifiers: Chest pain type: unspecified Qualified Code(s): R07.9 - Chest pain, unspecified Code(s): R07.9 - Chest pain, unspecified Status: Acute (2) Essential hypertension: Code(s): I10 - Essential (primary) hypertension Status: Chronic (3) COPD (chronic obstructive pulmonary disease): Code(s): J44.9 - Chronic obstructive pulmonary disease, unspecified Status: Acute (4) BPH (benign prostatic hyperplasia): Code(s): N40.0 - Benign prostatic hyperplasia without lower urinary tract symptoms Status: Chronic (5) Hypercholesterolemia: Code(s): E78.00 - Pure hypercholesterolemia, unspecified Status: Chronic (6) Anxiety: Code(s): F41.9 - Anxiety disorder, unspecified Status: Chronic (7) Depression: Code(s): F32.9 - Major depressive disorder, single episode, unspecified Status: Chronic DS: Summary Hospital Course Reason for hospitalization: Chest pain Hospital Course: Mr. Manzo is a 59 y.o. male with PMH significant for CAD with STEMI 12/2018 s/p PCI to the LAD using Or[place] drug-eluting stent, COPD, HLD, HTN, NADINE, BPH, anxiety, and current 1PPD smoker with 42 pack-year smoking hx who presented to the emergency department for the evaluation of chest pain. Pain was described as sharp, substernal straight through to his back , radiating to the shoulder blades. His episode that prompted him to proceed to the ED lasted from 2PM to 8/9PM and developed with exertion. He did not take nitro as he does not like how it makes him feel. He denied pain relation to food, change in bowel habits, nausea, and vomiting. Troponins were negative x3. EKG revealed sinus bradycardia with anteroseptal infarct and borderline ST-T abnormality in the lateral/high lateral leads. QTc normal at 398. Labs were unremarkable including normal lipase. CTA chest/abdomen/pelvis revealed normal gallbladder and pancreas with no other acute findings. There was no evidence of AAA/dissection. He had relief with morphine and transdermal nitro. He underwent exercise stress testing but reached suboptimal heart rate however echocardiographic findings showed significant anterior stress-induced ischemia. He underwent cardiac cath which demonstrated widely patent LAD stent and no other abnormalities. Imdur was initiated per cardiology. He was treated with pepcid for possible GERD although his symptoms do not seem to suggest GERD. He is on therapeutic lovenox. Continue lovenox, ASA, and ticagrelor. Continue carvedilol. Cardiology is on board. Management per cardiology. Cardiology recommended a trial of PPI and follow-up with his primary care provider to possibly modify his anxiety/depression medications. He was prescribed omeprazole as this was covered by his insurance. I discussed smoking cessation with the patient and he would like to try nicotine patches. I discussed that he cannot smoke while using the patches. He was discharged in stable condition on the morning of 10/08/19. Status at Discharge Functional status at discharge: independent ambulation Overall status at discharge: patient is back to baseline Time Spent with Patient Time attestation: Total time spent providing and/or coordinating discharge services: 35 minutes Exam Narrative: Exam Narrative: Vitals at presentation: Temp Pulse Resp BP Pulse Ox 98.0 F 49 L 20 179/101 H 100 10/06/19 15:30 10/06/19 15:30 10/06/19 15:30 10/06/19 15:30 10/06/19 15:30 Vitals at discharge: Temp Pulse Resp BP Pulse Ox 96.3 F L 57 L 18 140/88 82
== END 2019-10-08 12:40 | disposition home or self-care (01) ==
LOC: ANHED 18:36 → ANHIMU 19:04
PROVIDERS: Emergency Medicine; Nurse Practitioner; Specialist; Admitting Provider Internal Medicine; Emergency Provider Family Medicine; PCP Family Medicine; Visit Provider Physician Assistant
PROC: (CPT 93454; principal; 2019-10-07 15:30)
DX: R07.9 Chest pain, unspecified (principal); I10 Essential (primary) hypertension; J44.9 Chronic obstructive pulmonary disease, unspecified; N40.0 Benign prostatic hyperplasia without lower urinary tract symptoms; E78.00 Pure hypercholesterolemia, unspecified; F41.9 Anxiety disorder, unspecified; F32.9 Major depressive disorder, single episode, unspecified; R94.39 Abnormal result of other cardiovascular function study; F17.210 Nicotine dependence, cigarettes, uncomplicated; I25.10 Atherosclerotic heart disease of native coronary artery without angina pectoris; I25.2 Old myocardial infarction; Z95.5 Presence of coronary angioplasty implant and graft; G47.33 Obstructive sleep apnea (adult) (pediatric); Z79.82 Long term (current) use of aspirin; Z79.899 Other long term (current) drug therapy
CPT/HCPCS: 36415; 71046; 71275; 74174; 80048; 80053; 80061; 83605; 83690; 83735; 84443; 84484; 85025; 85610; 85730; 86140; 93005; 93351; 93454; 94640; 96372; 96374; 96375; 96376; 99285; A9270; C1887; C1894; G0378; J0360; J1170; J1644; J1650; J2250; J2270; J3010; J7040; Q9967

== ENCOUNTER 2020-04-26 11:42 | Emergency (ER) | payer OTHER, SELFPAY ==
--- NOTE | ~2020-04-26 | XR_ITS ---
EXAMINATION: XR chest 2V EXAM DATE: 04/26/2020 12:27 INDICATION: Shortness of breath, mid frontal chest wall pain. TECHNIQUE: Frontal and lateral projections of the chest obtained and reviewed. Comparison is made to prior examination from 02/06/2020. FINDINGS: The lungs are clear. There are no pleural effusions. The cardiomediastinal silhouette is within normal limits. There is no pneumothorax suspected. The bones and soft tissues are unremarkab le. IMPRESSION: No acute cardiopulmonary findings. Reviewed, dictated and finalized at location B. TS MEDICINE SPECIALIST
--- NOTE | ~2020-04-26 | CT_ITS ---
EXAMINATION: CTA chest PE protocol EXAM DATE: 04/26/2020 14:45 INDICATION: Chest pain and shortness of breath. TECHNIQUE: Spiral CTA of the chest (pulmonary arteries) was performed with 100 cc Omnipaque 350 intr avenous contrast injection. Images were acquired during the pulmonary arterial phase. Coronal maxi mum intensity projection 3D-reconstructions were created by the technologist on dedicated workstation . Axial, coronal and sagittal reformatted images were reviewed. The dose-length product (DLP) for t his examination was 702.07 mGy-cm. The exposure was tailored according to patient size (auto mA exp osure control), and iterative reconstruction (ASIR) was used as additional dose reduction technique. There is no prior study for comparison. FINDINGS: Pulmonary arteries are well opacified and without intraluminal filling defects. There is moderate emphysema. There is dependent groundglass opacity consistent with atelectasis. There are n o pleural or pericardial effusions. Tracheobronchial tree is patent. There is no mediastinal, hil ar or axillary lymphadenopathy. There is no pneumothorax. Heart normal in size. Probable left a nterior descending coronary artery stent. Upper abdomen is unremarkable. There is mild thoracic sp ondylosis without osteoblastic or osteolytic lesions identified. IMPRESSION: 1. No pulmonary emboli or acute findings. 2. Dependent subsegmental atelectasis unchanged. 3. Moderate emphysema Reviewed, dictated and finalized at location B. E OUTREACH CASE MANAGER
--- NOTE | 2020-04-26 11:43 | ECG_ITS ---
Measurements Intervals [place] Rate: 69 P: 52 MO: 145 QRS: 15 QRSD: 101 T: 81 QT: 386 QTc: 415 Interpretive Statements SINUS RHYTHM ANTEROSEPTAL INFARCT, AGE INDETERMINATE BORDERLINE ST-T WAVE ABNORMALITY- HIGH LATERAL LEADS BASELINE WANDER- V3 ABNORMAL ECG Electronically Signed On 04-26-2020 12:52:47 SAFETY EQUIPMENT TESTING SPECIALIST by Jona Argueta D.O.
[2020-04-26 12:08] VITALS: BP 120/75; PULSE 72; RESP 16; TEMP 35.9; O2SAT 100
[2020-04-26 12:22] LABS: Basophils Absolute Auto 0.1 K/mm3 (0.0-0.1); Basophils Percent Auto 0.9 % (0.2-1.2); Eosinophils Absolute Auto 0.2 K/mm3 (0-0.3); Eosinophils Percent Auto 3.3 % (0-4.4); Hematocrit 41.4 % (42.0-52.0); Hemoglobin 13.9 g/dL (14.0-18.0); Immature Granulocyte Absolute 0.02 K/mm3 (0.00-0.031); Immature Granulocyte Percent A 0.3 % (0-0.5); Lymphocytes Absolute Auto 1.74 K/mm3 (0.9-3.2); Mean Corpuscular HGB Conc 33.6 g/dl (32-36); Mean Corpuscular Hemoglobin 29.7 pg (26-34); Mean Corpuscular Volume 88.5 fl (80-100); Mean Platelet Volume 9.4 fl (7.4-10.4); Monocytes Absolute Auto 0.4 K/mm3 (0.1-0.6); Monocytes Percent Auto 7.1 % (2.6-8.5); Neutrophils Absolute Auto 3.4 K/mm3 (1.3-6.7); Neutrophils Percent Auto 58.4 % (45.5-73.1); Platelet Count Result 144 k/mm3 (150-375); Red Blood Count 4.68 M/mm3 (4.6-6.20); Red Cell Distribution Width 12.1 % (11.5-14.5); White Blood Count 5.8 K/mm3 (4.5-10.0)
[2020-04-26 12:34] LABS: Anion Gap 5 mmol/L (8-16); Blood Urea Nitrogen 10 mg/dL (9-20); Carbon Dioxide 25 mmol/L (22-30); Chloride 106 mmol/L (98-107); Estimated CRCL calculation 92 ml/min; Estimated Glomerular Filt Rate > 60; Glucose 141 mg/dL (75-110); Potassium 3.5 mmol/L (3.4-5.0); Sodium 136 mmol/L (137-145)
[2020-04-26 12:42] LABS: INR 0.9
[2020-04-26 12:44] LABS: Partial Thromboplastin Time 27.8 SECONDS (22.3-36.8)
[2020-04-26 12:46] LABS: Troponin I < 0.012 ng/mL (0.000-0.034)
--- NOTE | 2020-04-26 14:07 | ED.CHESTPAIN ---
HPI - Chest Pain General Chief Complaint: Chest Pain Stated Complaint: CHEST PAIN/SOB Time Seen by Provider: 04/26/20 13:58 Source: patient Mode of arrival: ambulatory Limitations: no limitations History of Present Illness HPI narrative: A 60-year-old male presents to the emergency department today for complaints of chest pain associated with shortness of breath. He states that he did contact his primary care physician for this. Was told it sounded like costochondritis and he was started on steroids. He states that this has made absolutely no difference in his symptoms. Patient also notes that the pain has been present for the last 2 weeks and started out intermittent but now is becoming more constant. He states this latest episode of chest pain has been present for the past 2 days. He notes that it is right in the center of his chest and does not radiate. He states that it feels like a strong/dull ache. He does state that he has had a history of a heart attack and that this pain does feel different. Related Data Home Medications Medication Instructions Recorded Confirmed acetaminophen 500 mg capsule 500 mg PO Q6H PRN 03/09/19 10/06/19 aspirin 81 mg tablet,delayed 81 mg PO DAILY 03/09/19 10/06/19 release citalopram 20 mg tablet 10 mg PO DAILY 03/09/19 10/06/19 losartan 50 mg tablet 100 mg PO DAILY 03/09/19 10/06/19 nitroglycerin 0.4 mg sublingual 0.4 mg SUBLINGUAL Q5M PRN 03/09/19 10/06/19 tablet rosuvastatin 20 mg tablet 20 mg PO DAILY 03/09/19 10/06/19 ticagrelor 90 mg tablet 90 mg PO Q12H 03/09/19 10/06/19 tiotropium bromide 18 mcg capsule 1 cap INHALATION DAILY 03/09/19 10/06/19 with inhalation device albuterol sulfate 2 puff INHALATION Q4H PRN 10/06/19 10/06/19 carvedilol 12.5 mg PO BID 10/06/19 10/06/19 ergocalciferol (vitamin D2) 1,250 mcg PO WEEKLY 10/06/19 10/06/19 [Vitamin D2] Allergies Allergy/AdvReac Type Severity Reaction Status Date / Time bee venom protein (honey bee) Allergy Severe Anaphylaxis Verified 10/06/19 21:04 tramadol Allergy Unknown Nausea and Verified 10/06/19 21:04 Vomiting Honey Bee Allergy Severe Anaphylactic Uncoded 10/06/19 21:04 Shock Review of Systems Review of Systems: Narrative: CONSTITUTIONAL: Denies fever, chills, or sweats. EYES: Denies visual changes, redness, or discharge. ENT: Denies rhinorrhea, congestion, sore throat, or otalgia. CARDIOVASCULAR: Denies palpitations, or edema. Endorses chest pain RESPIRATORY: Denies cough or dyspnea. GASTROINTESTINAL: Denies abdominal pain, nausea, vomiting, or diarrhea. GENITOURINARY: Denies dysuria or hematuria. SKIN: Denies rash or itching. MUSCULOSKELETAL: Denies back pain, joint pain, or myalgia. NEUROLOGIC: Denies headache, numbness, dizziness, or weakness. PSYCHIATRIC: Denies anxiety or depression. 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 The patient Lexie Dick smokes marijuana. The patient used to smoke 2 packs of cigarettes a d
[2020-04-26] MEDS: ASPIRIN 81 MG CHEWABLE TABLET 324 MG PO (14:15)
[2020-04-26] MEDS: MORPHINE SULFATE (*CRX) 4 MG/ML INJ IV PUSH (14:57)
[2020-04-26 14:58] VITALS: BP 128/72; PULSE 80; RESP 18; O2SAT 99
[2020-04-26 15:27] LABS: Troponin I < 0.012 ng/mL (0.000-0.034)
[2020-04-26 16:58] VITALS: BP 122/94; PULSE 67; RESP 18; O2SAT 98
== END 2020-04-26 17:00 | disposition home or self-care (01) ==
PROVIDERS: Emergency Medicine; Emergency Provider Emergency Medicine; PCP Family Medicine
DX: R07.89 Other chest pain (principal); N40.0 Benign prostatic hyperplasia without lower urinary tract symptoms; I25.10 Atherosclerotic heart disease of native coronary artery without angina pectoris; I10 Essential (primary) hypertension; E78.00 Pure hypercholesterolemia, unspecified; G47.33 Obstructive sleep apnea (adult) (pediatric); F41.9 Anxiety disorder, unspecified; F32.9 Major depressive disorder, single episode, unspecified; Z95.5 Presence of coronary angioplasty implant and graft; Z85.828 Personal history of other malignant neoplasm of skin; F17.210 Nicotine dependence, cigarettes, uncomplicated; Z79.82 Long term (current) use of aspirin; R94.31 Abnormal electrocardiogram [ECG] [EKG]; J43.9 Emphysema, unspecified
CPT/HCPCS: 36415; 71046; 71275; 80048; 84484; 85025; 85610; 85730; 93005; 96374; 99284; A9270; J2270; Q9967

== ENCOUNTER 2021-06-25 13:54 | Emergency (ER) | payer OTHER, SELFPAY ==
--- NOTE | ~2021-06-25 | CT_ITS ---
EXAMINATION: CT abdomen pelvis w con DATE: 06/25/2021 17:21 INDICATION: LLQ abd pain, hx of diverticulitis TECHNIQUE: Computed tomography (CT) of the abdomen and pelvis was performed with 100 mL Omnipaque-350 intravenous contrast. Automated exposure control and iterative reconstruction technique were employe d. The dose-length product was 426.02 mGy-cm. COMPARISON: 10/06/2019. FINDINGS: Motion limited examination. Lower thorax: Bibasilar atelectasis. Small hiatal hernia. No pneumothorax, pleural effusion, or paren chymal laceration. Liver: Granulomatous calcification. Biliary/Gallbladder: Gallbladder is normal. No bile duct dilation. Spleen: Moderate sized perisplenic hematoma. Subcentimeter peripheral laceration along the posterior spleen. 4 cm long laceration extending obliquely across the tip of the spleen, to a depth of approxim ately 2 cm. Granulomatous calcification. Pancreas: No mass or duct dilation. Adrenals:No mass. Kidneys: Simple left upper pole cyst. No stone or hydronephrosis. GI tract: No small or large bowel dilation. Diverticulosis without CT evidence of diverticulitis. Nor mal appendix. Mesentery/Peritoneum: No ascites, mass, or free air. Retroperitoneum: No mass. Pelvis: Small volume hyperdense free fluid pelvic fluid (56 HU).. Bones/Soft Tissues: Soft tissues and body wall unremarkable. No acute osseous finding. Note, subtle a nd/or minimally displaced rib fractures could be missed given the motion artifact. Additional Findings: None. IMPRESSION: Motion limited examination. Splenic lacerations (summary grade 3). Moderate volume of perisplenic hem atoma. Small volume free pelvic fluid/hemorrhage. No other acute finding detected in the abdomen or p samuel. No CT evidence of diverticulitis. Reviewed, dictated and finalized at location K. IMPRESSION: Motion limited examination. Splenic lacerations (summary grade 3). Moderate vol ume of perisplenic hematoma. Small volume free pelvic fluid/hemorrhage. No othe r acute finding detected in the abdomen or pelvis. No CT evidence of diverticul itis.
[2021-06-25 14:10] VITALS: BP 113/88; PULSE 88; RESP 18; TEMP 36.4; O2SAT 99
[2021-06-25 14:29] LABS: Basophils Percent Auto 0.4 % (0.2-1.2); Eosinophils Absolute Auto 0.1 K/mm3 (0-0.3); Eosinophils Percent Auto 1.1 % (0-4.4); Hematocrit 45.3 % (42.0-52.0); Hemoglobin 14.9 g/dL (14.0-18.0); Immature Granulocyte Absolute 0.03 K/mm3 (0.00-0.031); Immature Granulocyte Percent A 0.4 % (0-0.5); Lymphocytes Absolute Auto 2.19 K/mm3 (0.9-3.2); Lymphocytes Percent Auto 28.9 % (18.3-44.2); Mean Corpuscular HGB Conc 32.9 g/dl (32-36); Mean Corpuscular Hemoglobin 29.2 pg (26-34); Mean Corpuscular Volume 88.8 fl (80-100); Mean Platelet Volume 9.5 fl (7.4-10.4); Monocytes Absolute Auto 0.4 K/mm3 (0.1-0.6); Monocytes Percent Auto 5.4 % (2.6-8.5); Neutrophils Absolute Auto 4.8 K/mm3 (1.3-6.7); Neutrophils Percent Auto 63.8 % (45.5-73.1); Platelet Count Result 185 k/mm3 (150-375); Red Cell Distribution Width 12.2 % (11.5-14.5); White Blood Count 7.6 K/mm3 (4.5-10.0)
[2021-06-25 14:39] LABS: Alanine Aminotransferase 28 U/L (4-50); Albumin Level 4.3 g/dL (3.5-5.1); Alkaline Phosphatase 104 U/L (38-126); Anion Gap 9 mmol/L (8-16); Aspartate Amino Transferase 32 U/L (17-59); Bilirubin,Total 0.6 mg/dL (0.2-1.3); Blood Urea Nitrogen 8 mg/dL (9-20); Calcium 9.1 mg/dL (8.4-10.2); Carbon Dioxide 22 mmol/L (22-30); Chloride 108 mmol/L (98-107); Estimated CRCL calculation 92 ml/min; Estimated Glomerular Filt Rate > 60; Glucose 102 mg/dL (65-110); Lipase 21 U/L (23-300); Sodium 139 mmol/L (137-145)
[2021-06-25 16:17] LABS: Add Urine Microscopic? YES; Appearance Urine Cloudy (Clear); Bilirubin Urine Negative (Negative); Blood Urine Negative (Negative); Color Urine Amber (Yellow); Glucose Urine UA Negative (Negative); Ketones Urine Negative (Negative); Leukocyte Esterase Ur Negative LEU/UL (Negative); Mucus Urine Heavy /lpf; Nitrate Urine Negative (Negative); Protein Urine Negative (Negative); Specific Grav Ur 1.021 (1.001-1.035); Squamous Epithelial Cell Urine Rare /hpf (Few); Urobilinogen Urine Negative mg/dL (<2.0); WBC Urine 0-3 /hpf
--- NOTE | 2021-06-25 16:19 | PC.NURSE ---
patient had abdominal pain 4 weeks ago, had CT abdomen done and was advised that he had thickening of the bowel wall and has an appointment with GI tomorrow to set up colonoscopy
--- NOTE | 2021-06-25 16:34 | ED.ABDPAIN ---
HPI - Abdominal Pain General Chief Complaint: Abdominal Pain Stated Complaint: abdominal pain Time Seen by Provider: 06/25/21 16:34 Source: patient Mode of arrival: ambulatory Limitations: no limitations History of Present Illness HPI narrative: The patient is a 61-year-old male with history of hypertension, hyperlipidemia, diverticulitis, presenting to the emergency department for evaluation of left lower quadrant abdominal pain. Patient with pain over the past week, saw his primary care physician last week who prescribed him oral ciprofloxacin with concern for diverticulitis. Patient has been on that medication for 5 days. Patient reports acute onset of left lower quadrant abdominal pain this morning around 8:30 AM. Patient reports pain is severe in nature, no radiation to the back, no chest pain. Denies shortness of breath. Reports subjective fever and chills. Denies vomiting but reports nausea. Denies recent fall, injury, trauma. Reports that earlier in the week he was having mucus present in his stool, denies blood present or melanotic stool. Related Data Home Medications Medication Instructions Recorded Confirmed acetaminophen 500 mg capsule 500 mg PO Q6H PRN 03/09/19 05/15/21 aspirin 81 mg tablet,delayed 81 mg PO DAILY 03/09/19 05/15/21 release citalopram 20 mg tablet 10 mg PO DAILY 03/09/19 05/15/21 losartan 50 mg tablet 100 mg PO DAILY 03/09/19 05/15/21 nitroglycerin 0.4 mg sublingual 0.4 mg SUBLINGUAL Q5M PRN 03/09/19 05/15/21 tablet rosuvastatin 20 mg tablet 20 mg PO DAILY 03/09/19 05/15/21 ticagrelor 90 mg tablet 90 mg PO Q12H 03/09/19 05/15/21 tiotropium bromide 18 mcg capsule 1 cap INHALATION DAILY 03/09/19 05/15/21 with inhalation device albuterol sulfate 2 puff INHALATION Q4H PRN 10/06/19 05/15/21 carvedilol 12.5 mg PO BID 10/06/19 05/15/21 ergocalciferol (vitamin D2) 1,250 mcg PO WEEKLY 10/06/19 05/15/21 [Vitamin D2] Allergies Allergy/AdvReac Type Severity Reaction Status Date / Time bee venom protein (honey bee) Allergy Severe Anaphylaxis Verified 06/25/21 16:19 tramadol Allergy Unknown Nausea and Verified 04/05/22 16:19 Vomiting Honey Bee Allergy Severe Anaphylactic Uncoded 06/25/21 16:19 Shock Review of Systems Review of Systems: CONSTITUTIONAL: Reports subjective fever and chills CARDIOVASCULAR: Denies chest pain, palpitations, or edema. RESPIRATORY: Denies cough or dyspnea. GASTROINTESTINAL: Reports abdominal pain, nausea, denies vomiting GENITOURINARY: Denies dysuria or hematuria. SKIN: Denies rash or itching. MUSCULOSKELETAL: Denies back pain, joint pain, or myalgia. NEUROLOGIC: Denies headache, numbness, or weakness. [facility] Past Medical History Medical History Allergic rhinitis Anxiety BPH (benign prostatic hyperplasia) Bradycardia CAD (coronary artery disease) Depression Diverticulitis Essential hypertension Eustachian tube disorder History of heroin use Hypercholesterolemia Hypokalemia Obstructive sleep apnea Intolerant of a CPAP machine Prediabetes Spinal stenosis Surgical History Surgical History H/O heart artery stent Drug-eluting stent to the LAD on 01/16/2019 H/O umbilical hernia repair S/P TURP Status post surgical removal of neoplasm of skin Fatty tumor removed from right arm Family History Family History Mother Breast cancer Father Brain tumor Lung cancer Sibling Throat cancer Family history of malignant neoplasm Social History Social History Social History: 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 The patient Lexie Dick smokes marijuana. The patient used to smoke 2 packs of cigarettes a day but now is down to 3/4 of a pack a cigarettes a day. His 2 children and he lives with his and their son and the son's 3 c
[2021-06-25] MEDS: ONDANSETRON INJ 4 MG/2 ML VIAL IV PUSH (17:03)
[2021-06-25] MEDS: MORPHINE SULFATE (*CRX) 4 MG/ML INJ IV PUSH ×3 (17:03→22:56)
[2021-06-25] MEDS: SODIUM CHLORIDE 0.9% IV 1,000 ML 999 ML IV CONT (17:04)
[2021-06-25 17:35] LABS: Lactic Acid Reflex 1.2 mmol/L (0.7-2.1)
[2021-06-25 19:01] LABS: SARS-CoV-2 RNA PCR Negative
[2021-06-25 22:43] VITALS: BP 138/90; PULSE 59; RESP 16; O2SAT 95
== END 2021-06-25 22:58 | disposition short-term general hospital (02) ==
PROVIDERS: Emergency Medicine; Emergency Provider Emergency Medicine; PCP Family Medicine
DX: S36.031A Moderate laceration of spleen, initial encounter (principal); R10.32 Left lower quadrant pain; I10 Essential (primary) hypertension; E78.5 Hyperlipidemia, unspecified; F41.9 Anxiety disorder, unspecified; I25.10 Atherosclerotic heart disease of native coronary artery without angina pectoris; F32.A Depression, unspecified; G47.33 Obstructive sleep apnea (adult) (pediatric); R73.03 Prediabetes; Z20.822 Contact with and (suspected) exposure to COVID-19; Y33.XXXA Other specified events, undetermined intent, initial encounter; Z79.899 Other long term (current) drug therapy; Z79.82 Long term (current) use of aspirin; Z91.030 Bee allergy status; Z88.6 Allergy status to analgesic agent; Z87.19 Personal history of other diseases of the digestive system
CPT/HCPCS: 36415; 74177; 80053; 81001; 83605; 83690; 85025; 96361; 96374; 96375; 96376; 99285; C9803; J2270; J2405; J7030; Q9967; U0003; U0005

== ENCOUNTER 2023-01-08 11:58 | Emergency (ER) | payer OTHER, SELFPAY ==
--- NOTE | ~2023-01-08 | CT_ITS ---
EXAMINATION: CTA chest PE protocol DATE: 01/08/2023 13:15 INDICATION: Chest pain and shortness of breath TECHNIQUE: Computed tomography (CT) pulmonary angiogram of the chest was performed with 100 mL Omnipa que-350 intravenous contrast. Additional 3D reconstructions utilizing coronal maximum intensity proje ction (MIP) were performed. Automated exposure control and iterative reconstruction technique were em ployed. The dose-length product was 310.33 mGy-cm. COMPARISON: 04/26/2020 FINDINGS: Excellent contrast opacification of the pulmonary arteries. There is mild streak artifact and mild re spiratory motion artifact which does not significantly limit evaluation. No pulmonary embolism. Mild dependent atelectasis in bilateral lower lobes. Moderate upper lung predominant emphysema. No pneumon ia, pulmonary edema or pleural effusion. Couple small calcified pulmonary nodule in the right and lef t upper lobes along with calcified left hilar and mediastinal lymph nodes consistent with old granulo matous disease. Heart size is normal. No pericardial effusion. Atherosclerotic coronary artery diseas e with stenting along the left anterior descending coronary artery. There is fatty myocardial atrophy along the basilar and apical anterior and anteroseptal nelson, at the apex and inferoapical segment c onsistent with chronic infarct which was present at the time of the prior study. Myocardial thinning at the apex and inferoapical segments without kimber aneurysm. Thoracic aorta is normal in caliber. No pathologically enlarged thoracic lymphadenopathy. Hepatic and splenic calcifications and calcified p ortacaval and periportal lymph nodes consistent with old granulomatous disease. 2.4 cm cyst at the up per pole of the left kidney. Moderate lower cervical and mild thoracic spondylosis. IMPRESSION: 1. No pulmonary embolism. 2. Moderate emphysema. 3. Atherosclerotic coronary artery disease with stenting of the left anterior descending coronary art dioni and myocardial fatty atrophy consistent with sequela of chronic large infarct involving the left anterior descending coronary artery vascular distribution. Reviewed, dictated and finalized at location A. IMPRESSION: 1. No pulmonary embolism. 2. Moderate emphysema. 3. Atherosclerotic coronary artery disease with stenting of the left anterior d escending coronary artery and myocardial fatty atrophy consistent with sequela of chronic large infarct involving the left anterior descending coronary artery vascular distribution.
--- NOTE | ~2023-01-08 | XR_ITS ---
Clinical Indication: Chest pain PA and lateral views of the chest: Comparison: 04/26/2020 Findings: The lungs are clear, without evidence of focal consolidation or pleural effusion. Cardiome diastinal silhouette is within normal limits. Small calcified left hilar lymph nodes are noted. Bones and soft tissues are unremarkable. Impression: Clear lungs. Reviewed, dictated and finalized at location . Impression: Clear lungs.
--- NOTE | 2023-01-08 11:59 | ECG_ITS ---
Measurements Intervals [place] Rate: 57 P: 83 CO: 139 QRS: 9 QRSD: 94 T: 75 QT: 415 QTc: 405 Interpretive Statements SINUS BRADYCARDIA ANTEROSEPTAL MYOCARDIAL INFARCTION, AGE-INDETERMINATE ABNORMAL ECG COMPARED TO ECG 04/26/2020 12:11:18 SINUS BRADYCARDIA NOW PRESENT Electronically Signed On 01-08-2023 17:20:53 CDT by Rishi Rincon M.D.
--- NOTE | 2023-01-08 12:06 | ECG_ITS ---
Measurements Intervals [place] Rate: 55 P: 47 NV: 139 QRS: 5 QRSD: 97 T: 72 QT: 412 QTc: 395 Interpretive Statements SINUS BRADYCARDIA POSSIBLE LEFT VENTRICULAR HYPERTROPHY [VOLTAGE CRITERIA PLUS LAE OR QRS WIDENING] ANTEROSEPTAL MYOCARDIAL INFARCTION, AGE INDETERMINATE ABNORMAL ECG COMPARED TO ECG 01/08/2023 12:02:25 NO SIGNIFICANT CHANGES Electronically Signed On 01-08-2023 17:21:11 CDT by Rishi Rincon M.D.
[2023-01-08 12:08] VITALS: BP 151/90; PULSE 62; RESP 18; TEMP 36.4; O2SAT 100
[2023-01-08 12:24] LABS: Basophils Absolute Auto 0.1 K/mm3 (0.0-0.1); Basophils Percent Auto 0.8 % (0.2-1.2); Eosinophils Absolute Auto 0.2 K/mm3 (0-0.3); Eosinophils Percent Auto 2.3 % (0-4.4); Hematocrit 42.6 % (42.0-52.0); Hemoglobin 14.2 g/dL (14.0-18.0); Immature Granulocyte Absolute 0.01 K/mm3 (0.00-0.031); Immature Granulocyte Percent A 0.1 % (0-0.5); Lymphocytes Absolute Auto 2.18 K/mm3 (0.9-3.2); Lymphocytes Percent Auto 27.8 % (18.3-44.2); Mean Corpuscular HGB Conc 33.3 g/dl (32-36); Mean Corpuscular Hemoglobin 29.5 pg (26-34); Mean Corpuscular Volume 88.4 fl (80-100); Mean Platelet Volume 9.4 fl (7.4-10.4); Monocytes Absolute Auto 0.4 K/mm3 (0.1-0.6); Monocytes Percent Auto 5.4 % (2.6-8.5); Neutrophils Percent Auto 63.6 % (45.5-73.1); Platelet Count Result 198 k/mm3 (150-375); Red Blood Count 4.82 M/mm3 (4.6-6.20); Red Cell Distribution Width 12.1 % (11.5-14.5); White Blood Count 7.8 K/mm3 (4.5-10.0)
--- NOTE | 2023-01-08 12:29 | PC.NURSE ---
Patient took all of his home medications this morning prior to coming to the ED, including 81mg asa
[2023-01-08 12:34] LABS: Prothrombin Time 13.3 Seconds (11.1-14.7)
[2023-01-08 12:35] LABS: Alanine Aminotransferase 16 U/L (6-50); Albumin Level 4.1 g/dL (3.5-5.1); Alkaline Phosphatase 85 U/L (38-126); Anion Gap 8 mmol/L (8-16); Aspartate Amino Transferase 19 U/L (17-59); Bilirubin,Total 0.6 mg/dL (0.2-1.3); Blood Urea Nitrogen 5 mg/dL (9-20); Calcium 8.8 mg/dL (8.4-10.2); Carbon Dioxide 23 mmol/L (22-30); Chloride 107 mmol/L (98-107); Estimated CRCL calculation 103 ml/min; Estimated Glomerular Filt Rate > 60; Glucose 145 mg/dL (65-110); Lipase 28 U/L (23-300); Partial Thromboplastin Time 29.6 SECONDS (22.3-36.8); Potassium 3.4 mmol/L (3.4-5.0); Sodium 138 mmol/L (137-145)
[2023-01-08] MEDS: ASPIRIN 81 MG CHEWABLE TABLET 324 MG PO (12:45)
--- NOTE | 2023-01-08 12:45 | ED.CHESTPAIN ---
HPI - Chest Pain General Chief Complaint: Chest Pain Stated Complaint: Chest pain Time Seen by Provider: 01/08/23 12:35 History of Present Illness HPI narrative: Patient is a 62-year-old male who presents ER with chest pain. Ongoing for 3 days. Center of his chest. Sharp. Worse with deep breath. Associated with cough. No fevers or chills. Does report dyspnea with exertion. Pain in the chest does not move to the shoulder or neck. Reports he has had some issues with his hands over the last couple weeks where they feel tingling and has been referred to a hand surgeon. No lower extremity swelling or cramping. Patient does have history of coronary disease and sees Dr. May. He is compliant with his home Brilinta. Related Data Home Medications Medication Instructions Recorded Confirmed acetaminophen 500 mg capsule 500 mg PO Q6H PRN Pain (Scale 03/09/19 05/19/22 Score 1-3) aspirin 81 mg tablet,delayed 81 mg PO DAILY 03/09/19 05/19/22 release (Adult Low Dose Aspirin) losartan 50 mg tablet 100 mg PO DAILY 03/09/19 05/19/22 nitroglycerin 0.4 mg sublingual 0.4 mg sublingual Q5M PRN Chest 03/09/19 05/19/22 tablet Pain rosuvastatin 20 mg tablet 20 mg PO DAILY 03/09/19 05/19/22 ticagrelor 90 mg tablet 90 mg PO Q12H 03/09/19 05/19/22 tiotropium bromide 18 mcg capsule 1 cap inhalation DAILY 03/09/19 05/19/22 with inhalation device albuterol sulfate 90 mcg/actuation 2 puff inhalation Q4H PRN 10/06/19 05/19/22 aerosol inhaler Shortness Of Breath Or Wheezing carvedilol 6.25 mg tablet 12.5 mg PO BID 10/06/19 05/19/22 citalopram 20 mg tablet 40 mg PO DAILY 11/13/21 05/19/22 Allergies Allergy/AdvReac Type Severity Reaction Status Date / Time bee venom protein (honey bee) Allergy Severe Anaphylaxis Verified 01/08/23 12:13 tramadol Allergy Unknown Nausea and Verified 01/08/23 12:13 Vomiting Honey Bee Allergy Severe Anaphylactic Uncoded 01/08/23 12:13 Shock Review of Systems Review of Systems: All systems reviewed & are unremarkable except as noted in HPI and below Constitutional: Constitutional: Denies chills, Denies fatigue and Denies fever(s) ENT: Reports system reviewed and no additional complaints, except as documented Cardiovascular: Cardiovascular: Reports chest pain, Denies rapid heart rate and Denies radiating jaw, neck or arm pain Respiratory: Respiratory: Reports cough, Reports dyspnea and Denies wheezing Gastrointestinal: Gastrointestinal: Reports no additional gastrointestinal complaints Genitourinary: Genitourinary: Reports no additional male genitourinary complaints [facility] Past Medical History Medical History Allergic rhinitis Anxiety BPH (benign prostatic hyperplasia) Bradycardia CAD (coronary artery disease) Depression Diverticulitis Essential hypertension Eustachian tube disorder History of heroin use Hypercholesterolemia Hypokalemia Obstructive sleep apnea Intolerant of a CPAP machine Prediabetes Spinal stenosis Surgical History Surgical History H/O heart artery stent Drug-eluting stent to the LAD on 01/16/2019 H/O umbilical hernia repair S/P TURP Status post surgical removal of neoplasm of skin Fatty tumor removed from right arm Family History Family History Mother Breast cancer Father Brain tumor Lung cancer Sibling Throat cancer Family history of malignant neoplasm Social History Social History (Updated 05/19/22 @ 11:15 by Michelle Lambert MA) Social History: 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 The patient Lexie Dick smokes marijuana. The patient used to smoke 2 packs of cigarettes a day but now is down to 3/4 of a pack a cigarettes a day. His 2 children and he lives with his and their son and the son's 3 children. He denies any alcohol use. He used heroin in the past
[2023-01-08 12:46] LABS: Troponin I < 0.012 ng/mL (0.000-0.034)
[2023-01-08] MEDS: MORPHINE SULFATE (*CRX) 4 MG/ML INJ IV PUSH (12:46)
[2023-01-08] MEDS: ONDANSETRON INJ 4 MG/2 ML VIAL IV PUSH (12:49)
[2023-01-08] MEDS: KETOROLAC 15 MG/ML VIAL (*BKC) IV PUSH (14:55)
[2023-01-08 15:15] LABS: Troponin I < 0.012 ng/mL (0.000-0.034)
[2023-01-08 15:45] VITALS: BP 145/90; PULSE 54; RESP 16; O2SAT 99
== END 2023-01-08 15:47 | disposition home or self-care (01) ==
PROVIDERS: Emergency Medicine; Emergency Provider Emergency Medicine; PCP Family Medicine
DX: R09.1 Pleurisy (principal); I25.10 Atherosclerotic heart disease of native coronary artery without angina pectoris; I10 Essential (primary) hypertension; E78.00 Pure hypercholesterolemia, unspecified; R73.03 Prediabetes; N40.0 Benign prostatic hyperplasia without lower urinary tract symptoms; G47.33 Obstructive sleep apnea (adult) (pediatric); F17.210 Nicotine dependence, cigarettes, uncomplicated; Z95.5 Presence of coronary angioplasty implant and graft; Z85.828 Personal history of other malignant neoplasm of skin; Z79.82 Long term (current) use of aspirin; R00.1 Bradycardia, unspecified; R94.31 Abnormal electrocardiogram [ECG] [EKG]; J43.9 Emphysema, unspecified
CPT/HCPCS: 36415; 71046; 71275; 80053; 83690; 84484; 85025; 85610; 85730; 93005; 96374; 96375; 99284; A9270; J1885; J2270; J2405; Q9967

== ENCOUNTER 2023-12-23 10:34 | Outpatient (CLI) | payer OTHER, SELFPAY ==
--- NOTE | ~2023-12-23 | XR_ITS ---
Right Knee Technique: AP, lateral, and sunrise views were obtained. Clinical History: Osteoarthritis Findings: No fracture or dislocation is seen. Osseous alignment is anatomic. Joint spaces are preserv ed without degenerative or erosive change. Chondrocalcinosis of the menisci noted. No joint effusion is seen. Impression: Chondrocalcinosis of the menisci. Reviewed, dictated and finalized at location . Impression: Chondrocalcinosis of the menisci.
== END 2023-12-23 10:35 | disposition home or self-care (01) ==
PROVIDERS: Visit Provider Orthopaedic Surgery
DX: M17.0 Bilateral primary osteoarthritis of knee (principal)
CPT/HCPCS: 73564

== ENCOUNTER 2024-02-03 09:42 | Outpatient (CLI) | payer OTHER, SELFPAY ==
--- NOTE | ~2024-02-03 | CT_ITS ---
EXAMINATION: CT lung screening DATE: 02/03/2024 09:56 INDICATION: Personal history of nicotine dependence TECHNIQUE: Computed tomography (CT) of the chest was performed without intravenous contrast. Addition al 3D reconstructions utilizing coronal maximum intensity projection (MIP) were performed. Automated exposure control and iterative reconstruction technique were employed. The dose-length product was 11 3.38 mGy-cm. COMPARISON: 01/08/2023 FINDINGS: Moderate emphysema. There are couple small calcified left upper lobe nodules along with calcified med iastinal and left hilar lymph nodes consistent with old granulomatous disease. There are a few additi onal scattered <3 mm noncalcified nodules in both lungs. Mild discoid atelectasis at the right middle lobe. No pneumonia, pulmonary edema or pleural effusion. Heart size is normal. Stenting at the proxi mal left anterior descending coronary artery. There is a large region of myocardial fat attenuation i nvolving significant portions of the septal and anterior nelson as well as the apical and apical infer ior and apical lateral segments consistent with sequela of chronic infarct in the left anterior desce nding coronary artery vascular distribution. No pericardial effusion. Thoracic aorta is normal in dion iber. No pathologically enlarged thoracic lymphadenopathy. A few scattered hepatic and splenic calcif ications and calcified lymph nodes also consistent with old granulomatous disease. Mild to moderate t horacic spondylosis. Instrumented C6-C7 anterior spinal fusion with interbody bone graft cage and ant erior plate-screw fixation. IMPRESSION: 1. Lung-RADS category 2: Benign appearance or behavior. Continue annual screening with noncontrast lo w-dose chest CT in 12 months. 2. Stigmata of chronic large infarct in the left anterior descending coronary artery vascular distrib ution with stenting of the proximal artery. Reviewed, dictated and finalized at location B. OR CONSULTING MANAGER IMPRESSION: 1. Lung-RADS category 2: Benign appearance or behavior. Continue annual screeni ng with noncontrast low-dose chest CT in 12 months. 2. Stigmata of chronic large infarct in the left anterior descending coronary a rtery vascular distribution with stenting of the proximal artery.
== END 2024-02-03 09:43 | disposition home or self-care (01) ==
PROVIDERS: PCP Physician Assistant; Visit Provider Physician Assistant
DX: Z12.2 Encounter for screening for malignant neoplasm of respiratory organs (principal); Z87.891 Personal history of nicotine dependence
CPT/HCPCS: 71271

== ENCOUNTER 2024-07-08 15:15 | Emergency (ER) | payer BC, SELFPAY ==
[2024-07-08] VITALS (7 sets, daily range): BP systolic 92–117; BP diastolic 58–77; PULSE 57–62; RESP 16–20; TEMP 36.8; O2SAT 95–97
--- NOTE | ~2024-07-08 | CT_ITS ---
CT abdomen pelvis wo con Ordering provider: Bay Reeves PA-C History: 64 years Male with . L inguinal hernia, difficulty reducing . Comparison: June 25, 2021 Technique: CT abdomen and pelvis without IV and without oral contrast. Automated exposure control and iterative reconstruction technique were employed. The dose-length product was 580.81 mGy-cm. Findings: VISUALIZED LOWER CHEST: Dependent atelectatic changes. UPPER ABDOMINAL ORGANS: Liver: Normal. Gallbladder: Contracted. Spleen: Normal. Benign calcifications. Stomach/duodenum: Normal. Pancreas: Atrophic. Adrenals: Normal. Kidneys: Left kidney upper pole cyst measuring 1.5 cm. Small left kidney midpole cyst. Tiny stone in the left kidney lower pole. Small cyst in the right kidney mid pole. PELVIC ORGANS: The bladder is underfilled with thickened wall. Evaluation for cystitis advised. BOWEL AND MESENTERY: Colon: No evidence of diverticulitis.. Fecal material is loaded in the colon suggestive of constipati on. Normal appendix. Small Bowel: Normal. No obstruction. Peritoneum/mesentery: No free air or free fluid. No mesenteric lymphadenopathy. RETROPERITONEUM: Mild atheromatous disease of the abdominal aorta. No retroperitoneal lymphadenopat hy. MUSCULOSKELETAL: Superficial soft tissues: Left fat containing inguinal hernias noted. Otherwise, The superficial soft tissues are normal. Calcification the left scrotal area is seen. Bones: Age appropriate degenerative changes of the spine. Air-containing focal areas seen in the left iliac bone measuring 1.2 x 1.1 cm. Follow-up advised. Possibility of infection cannot be excluded. IMPRESSION: 1. No evidence of appendicitis, diverticulitis or intestinal obstruction. 2. Left kidney tiny stone. 3. Bilateral kidney cysts. 4. Atrophic pancreas. 5. Constipation. 6. Thickened wall of the urinary bladder. Evaluation for cystitis advised. 7. Focal air containing bone lesion seen in the left iliac bone. Reviewed, dictated and finalized at location A.
--- OUTSIDE RECORDS SUMMARY | 2024-07-08 15:18 | XMS_ITS | Continuity of Care Document ---
Author Organization [facility] Address [address] [facility] [[email or web address] [place] [address] Phone Care Team Providers Care Mainspring Winder Name Role Phone Alonzo Prince MD Unavailable Unavailable Allergies, Adverse Reactions, Alerts Substance Reaction Status Criticality tramadol Nausea Active No Information Medications Medication Instructions Dosage Effective Dates (start - stop) Status Comments Percocet 10 mg-325 mg tablet take 1 tablet by oral route every 6 hours as needed 1.00 tablet - Active avoid driving or operate machines Xanax 0.5 mg tablet take 1 tablet (0.5MG) by oral route every 4 - 6 hours as needed 0.5 MG - Active PRN for anxiety, avoid driving or operate machines lisinopril 40 mg tablet take 1 tablet (40MG) by oral route every day 40 MG - Active Procedures Procedure Date OFFICE/OUTPATIENT VISIT, EST OFFICE/OUTPATIENT VISIT, EST OFFICE/OUTPATIENT VISIT, EST OFFICE/OUTPATIENT VISIT, EST OFFICE/OUTPATIENT VISIT, EST OFFICE/OUTPATIENT VISIT, EST FLU VACCINE, 3 YRS & >, IM IMMUNIZATION ADMIN OFFICE/OUTPATIENT VISIT, EST OFFICE/OUTPATIENT VISIT, EST URINALYSIS NONAUTO W/O SCOPE PREV VISIT, EST, AGE 40-64 Advance Directives Directive Yes / No Effective Date File Name No Information Encounters Encounter Description Practice Location Reason(s) For Visit Diagnoses Date Provider Providers Copied on Encounter [facility], [address], [place], [address], [place] tel:[phone] [facility] No Information 3 Suresh Rosado. [address], [address], [place], [place], [address] , [place]. tel:[phone] Referring Provider: Paris Swann [address], [place], [place], [address]. tel:[phone] OFFICE/OUTPA TIENT VISIT, [facility], [address], [place], [place], [address], [place] tel:[phone] [facility] lumbago (chief complaint)visio n change (chief complaint)anxie ty (chief complaint) Dietary surveillance and counselingLumb agoUnspecified visual disturbanceGen eralized anxiety disorder 3 Suresh Stoner [address], [address], [place], [place], [address] , [place]. tel:[phone] Referring Provider: Paris Swann [address], [place], [place], [address]. tel:[phone] OFFICE/OUTPA TIENT VISIT, [facility], [address], [place], [place], [address], [place] tel:[phone] [facility] back pain (chief complaint)anxie ty (chief complaint) Dietary surveillance and counselingLumb agoGeneralized anxiety disorderHypert ension, Unspecified 3 Suresh Stoner [address], [address], [place], [place], [address] , [place]. tel:[phone] Referring Provider: Paris Swann [address], [place], [place], [address]. tel:[phone] OFFICE/OUTPA TIENT VISIT, [facility], [address], [place], [place], [address], [place] tel:[phone] [facility] back pain (chief complaint) Dietary surveillance and counselingLumb ago 3 Suresh Rosado. [address], [address], [place], [place], [address] , [place]. tel:[phone] Referring Provider: Alonzo Prince, [address], [place], [place], [address]. tel:[phone] OFFICE/OUTPA TIENT VISIT, [facility], [address], [place], [place], [address], [place] [phone] [facility] back pain (chief complaint)HTN (chief complaint)Rash (chief complaint)axila ry bump (chief complaint) Dietary surveillance and counselingHype rtension, UnspecifiedRas h and other nonspecific skin eruptionEnlarg ement of lymph nodes 3 Suresh Rosado. [address], [address], [place], [place], [address] , [place]. tel:[phone] Referring Provider: Alonzo Prince, [address], [place], [place], [address]. tel:[phone] OFFICE/OUTPA TIENT VISIT, [facility], [address], [place], [place], [address], [place] tel:[phone] [facility] back pain (chief complaint)HTN (chief complaint) Dietary surveillance and counselingLumb agoHypertensio n, Unspecified 3 Suresh Rosado. [address], [place], [place], [address] , [place]. [phone] Referring Provider: Alonzo Prince, [address], [place], [place], [address]. tel:[phone] OFFICE/OUTPA TIENT VISIT, [facility], [address], [place], [address], [place] tel:[phone] [facility] back pain (chief complaint) Dietary surveillance and counselingLumb ago 2 Suresh Rosado. [address], [place], [place], [address] , [place]. tel:[phone] Referring Provider: Alonzo Prince, [address], [place], [place], [address]. tel:[phone] OFFICE/OUTPA TIENT VISIT, EST [facility], [address], [place], [place], [address], [place] tel:[phone] [facility] Medicine hyperilpidemia (chief complaint)vitam in D (chief complaint)back pain (chief complaint) Dietary surveillance and counselingLumb agoOther and unspecified hyperlipidemia Unspecified vitamin d deficiencyHype rtension, UnspecifiedInf luenza Vaccine 2 Suresh Rosado. [address], [place], [place], [address] , [place]. tel:[phone] Referring Provider: Paris Swann [address], [place], [place], [address]. tel:[phone] OFFICE/OUTPA TIENT VISIT, [facility], [address], [place], [place], [address], [place] tel:[phone] [facility] back pain (chief complaint)HTN (chief complaint) Dietary surveillance and counselingInso mnia, OtherHypertens ion, UnspecifiedLum bago 2 Suresh Stoner [address], [place], [place], [address] , [place]. tel:[phone] Referring Provider: Paris [address], [place], [place], [address]. tel:[phone] PREV VISIT, EST, AGE 40-64 [facility], [address], [place], [place], [address], [place] tel:[phone] [facility] preventive exam (chief complaint)back pain (chief complaint) Dietary surveillance and counselingRout ine Medical ExamRoutine Medical Exam 2 Suresh Rosado. [address], [place], [place], [address] , [place]. tel:[phone] Family History Family Member Type Diagnosis Age At Onset Brother Problem (finding) Cancer, throat Mother Problem (finding) Father Problem (finding) Father Problem (finding) Brain tumor (Cause Of D eath) Mother Problem (finding) Cancer, breast (Cause O f ) Immunizations Vaccine Date Status Comments Flu (split) (3 yrs or older) administered Source: New Immunization Record Payers Payer name Insurance type Covered democrat ID Kenneth nuñez(s) No Information Social History Type Description Quantity Date Captured Comments Sex Male Smoking Status No Information Chief Complaint And Reason For Visit No Information Plan Of Treatment Date Type Action Status Goal Colonoscopy. Due on 013 due Goal PSA. Due on due Goal Tobacco cessation counseling completed Goal Tobacco cessation counseling completed Goal Tobacco cessation counseling completed Goal Tobacco cessation counseling completed Goal Tobacco cessation counseling completed Goal Tobacco cessation counseling completed Goal Tobacco cessation counseling completed Goal Tobacco cessation counseling completed Goal Tobacco cessation counseling completed History Of Present Illness Encounter Date Complaint History Of Prese nt Illness No Information Instructions Date Instruction Additional Infor mation Dietary counseling Related to Di etary surveillance counseling Decrease caloric intake Related to Dietary surveillance counseling Dietary counseling Related to Di etary surveillance counseling Decrease caloric intake Related to Dietary surveillance counseling Dietary counseling Related to Di etary surveillance counseling Decrease caloric intake Related to Dietary surveillance counseling Decrease caloric intake Related to Dietary surveillance counseling Dietary counseling Related to Di etary surveillance counseling Decrease caloric intake Related to Dietary surveillance counseling Dietary counseling Related to Di etary surveillance counseling Dietary counseling Related to Di etary surveillance counseling Decrease caloric intake Related to Dietary surveillance counseling Dietary counseling Related to Di etary surveillance counseling Decrease caloric intake Related to Dietary surveillance counseling Decrease caloric intake Related to Dietary surveillance counseling Dietary counseling Related to Di etary surveillance counseling Decrease caloric intake Related to Dietary surveillance counseling Dietary counseling Related to Di etary surveillance counseling Assessments Type Assessment Date No Information
--- OUTSIDE RECORDS SUMMARY | 2024-07-08 15:18 | XMS_ITS | Encounter Summary ---
Author Organization [facility] Address [address] [place] [address] Phone Care Team Providers Care Pharmacist In Charge Name Role Phone Kailash Peres APRN, SCHOOL MANAGER Primary Care Pro vider Aki Hanson MD Unavailable Reason for Visit * Reason Comments Medication Refill Encounter Details Date Type Department Care Team (Late st Contact Info) Description 08/17/2023 Refill [facility] [address] [address] Aki Hanson MD [address] [place] [phone] Medication Refill Social History Tobacco Use Types Packs/Day Years Used Date Smoking Tobacco: Every Day Cigarettes Smokeless Tobacco: Never Alcohol Use Standard Drinks/Week Comments Not Currently 0 (1 standard drink = 0.6 oz pur e alcohol) Sex and Gender Information Value Date Recorded Sex Assigned at Not on file Legal 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 Please fill if appropriate. documented in this encounter Plan of Treatment Not on file documented as of this encounter Visit Diagnoses Not on filedocumented in this encounter Care Teams Pharmacist In Charge Relationship Specialty Start Date End Date Kailash Peres APRN, SCHOOL MANAGER [address] [place] [address] [address] MENDES B [address] [address] PCP - General Advanced Practice Nurse 04/20/17 Aki Hanson MD [address] [place] [phone] Consulting Physician Oncology 08/18/23 documented as of this encounter
--- OUTSIDE RECORDS SUMMARY | 2024-07-08 15:18 | XMS_ITS | Encounter Summary ---
Author Organization [facility] Address [address] [place] [address] Care Team Providers Care Settlement Clerk Name Role Phone Gemma Gaytan MD Primary Care Provider [phone] Benja May MD Unavailable [phone] Encounter Details Date Type Department Care Team (Late st Contact Info) Description 09/29/2023 [employer] Message Enc [facility] Multispecialty Care - [facility] [address] [facility], [address] [place] [phone] Marcell Arana MD [address] [place] [address] Rehab Social History Tobacco Use Types Packs/Day Years Used Date Smoking Tobacco: Every Day Cigarettes 1.5 47.3 Started: 1975 Smokeless Tobacco: Never Alcohol Use Standard Drinks/Week Comments Never 0 (1 standard drink = 0.6 oz pur e alcohol) B1300 Health Literacy Answer Date Recor ded How often do you need to hav e someone help you when you read instructions, pamphlets, or other written material from your doctor or pharmacy? Never 07/17/2023 [facility] Utilities Answer Date Recorded In the past 12 months has th e electric, gas, oil, or water company threatened to shut off services in your home? No 07/17/2023 Humiliation, Afraid, Rape, and Kick questionnair e Answer Date Recorded Within the last year, have y ou been afraid of your partner or ex-partner? No 07/17/2023 Within the last year, have y ou been humiliated or emotionally abused in other ways by your partner or ex-partner? No Within the last year, have y ou been kicked, hit, slapped, or otherwise physically hurt by your partner or ex-partner? No 07/17/2023 Within the last year, have y ou been raped or forced to have any kind of sexual activity by your partner or ex-partner? No 07/17/2023 Social Connection and Isolat ion Panel [NHANES] Answer Date Recorded In a typical week, how many times do you talk on the phone with family, friends, or neighbors? More than three times a week 07/17/2023 How often do you get togethe r with friends or relatives? More than three times a week 07/17/2023 How often do you attend chur or orthodoxy services? Never 07/17/2023 Do you belong to any clubs o r organizations such as gnosticist groups, unions, fraternal or athletic groups, or school groups? No 07/17/2023 How often do you attend meet ings of the clubs or organizations you belong to? Never 07/17/2023 Are you , , di vorced, , never , or living with a partner? 07/17/2023 AUDIT-C Answer Date Recorded Q1: How often do you have a drink containing alcohol? Never 07/17/2023 Q2: How many drinks containi ng alcohol do you have on a typical day when you are drinking? Patient does not drink Q3: How often do you have si x or more drinks on one occasion? Never 07/17/2023 Overall Financial Resource Strain (CARDIA) Answe r Date Recorded How hard is it for you to pa y for the very basics like food, housing, medical care, and heating? Not hard at all 07/17/2023 PHQ-2 Answer Date Recorded Patient Health Questionnaire-2 Score 0 07/17/2023 [facility] - Occupational Stress Questionnaire Answer Date Recorded Do you feel stress - tense, restless, nervous, or anxious, or unable to sleep at night because your mind is troubled all the time - these days? Not at all 07/17/2023 Exercise Vital Sign Answer Date Recorde d On average, how many days pe r week do you engage in moderate to strenuous exercise (like a brisk walk)? 0 days 07/17/2023 On average, how many minutes do you engage in exercise at this level? 0 min 07/17/2023 Hunger Vital Sign Answer Date Recorded Within the past 12 months, y ou worried that your food would run out before you got the money to buy more. Never true 07/17/19 24 Within the past 12 months, t he food you bought just didn't last and you didn't have money to get more. Never true 07/17/2023 PRAPARE - Transportation Answer Date Re corded In the past 12 months, has l ack of transportation kept you from medical appointments or from getting medications? No 06/22 In the past 12 months, has l ack of transportation kept you from meetings, work, or from getting things needed for daily living? No 07/17/2023 Housing Stability Vital Sign Answer Pedro Pablo e Recorded In the last 12 months, was t here a time when you were not able to pay the mortgage or rent on time? No 07/17/2023 In the past 12 months, how m any times have you moved where you were living? 1 07/17/2023 At any time in the past 12 m [facility], were you homeless or living in a mcc (including now)? No 07/17/2023 Sex and Gender Information Value Date Recorded Sex Assigned at Not on file Legal Sex Male 8:04 PM JAMEST Gender Identity Not on file Sexual Orientation Not on file documented as of this encounter Functional Status * Are you deaf or do you have serious difficulty hearing Answer Date of Assessment Author Status No 07/18/2023 4:26 AM Abbey Escalante RN Active * Are you blind or do you have serious difficulty seeing, even when wearing glasses? Answer Date of Assessment Author Status No 07/18/2023 4:26 AM Abbey Escalante RN Active * Do you have serious difficulty walking or climbing stairs? Answer Date of Assessment Author Status Yes 07/18/2023 4:26 AM CDT Layo, Abbey Y, RN Active * Do you have difficulty dressing or bathing? Answer Date of Assessment Author Status Yes 07/18/2023 4:26 AM CDT Abbey Vasques RN Active * Because of a physical, mental, or emotional condition, do you have difficulty doing errands alone such as visiting a doctor's office or shopping? Answer Date of Assessment Author Status No 07/17/2023 9:52 PM CDT Abbey Vasques RN Active documented as of this encounter Mental Status * Because of a physical, mental, or emotional condition, do you have serious difficulty concentrating, remembering, or making decisions? Answer Entry Date Author Status No 07/18/2023 4:26 AM CDT Abbey Vasques RN Active documented in this encounter Progress Notes * Leeann Cardenas MA - 09/29/2023 2:08 PM CDT Dai , this patient was seen on 09/10/23 by AA. There is no mention of PT in his note. Patient is asking about it. Should he start PT? documented in this encounter Plan of Treatment Not on file documented as of this encounter Goals Goal Patient Goal Type Associated Problems Recent Progress Patient-Stated? Author Family - family caregiver with be involved in care transitions and discharge planning Lifestyle No Mal Alva RN documented as of this encounter Visit Diagnoses Not on filedocumented in this encounter Care Teams Settlement Clerk Relationship Specialty Start Date End Date Gemma Gaytan MD [address] [place] [address] Dr [facility] [address] [place] [address] PCP - General FAMILY PRACTICE 12/19/22 Benja May MD [address] [facility] [address] [place] [address] CARDIOVASCULAR DISEASE 03/10/23 documented as of this encounter
--- OUTSIDE RECORDS SUMMARY | 2024-07-08 15:18 | XMS_ITS | Clinical Summary ---
Author Organization [facility] Address [address] [place] [address] Care Team Providers Care Cloth Boil Off Machine Operator Name Role Phone Gemma Morales MD Primary Care Provider [phone] Source Comments [facility],non-owned Affiliates and Associated Physician Practices is amultiple site organization consisting of ambulatory clinics and hospital sitesin [place], [place], [place] and [place]. This disclosure is being madepursuant to the Care Everywhere program and may not contain all information available regarding this patient. Last updated 17.[employer] [facility] Allergies Active Allergy Reactions Criticality Noted Date Comments Honey Bee Venom Anaphylaxis High 07/09/2021 Tramadol Nausea and/or Vomiting 06/25/2021 Medications * This document contains information received from the source organization and may not represent a complete record from that organization. * Be aware that medications may not be up to date on this document. Alwaysverify current medications with the patient. losartan (COZAAR) 100 MG tablet Take 100 mg by mouth once daily Active isosorbide mononitrate CR 24hr (IMDUR) 60 MG tablet Take 90 mg by mouth once daily Active citalopram (CELEXA) 40 MG tablet Take 40 mg by mouth once daily Active carbidopa-levod opa CR (SINEMET CR) 25-100 MG tablet Take 1 tablet by mouth 2 times daily Active rosuvastatin (CRESTOR) 20 MG tablet Take 20 mg by mouth once daily Active ticagrelor (BRILINTA) 90 MG tabletIndicatio ns:ok to resume on 07/02 Take 90 mg by mouth once Active aspirin (ASPIRIN) 81 MG chew tabletIndicatio ns:ok to resume 07/02 Take 81 mg by mouth once daily Active Fluticasone-Ume clidin-Vilant (TRELEGY ELLIPTA) 100-62.5-25 MCG/INH Inhale by mouth once daily Active nitroGLYCERIN (NITROSTAT) 0.6 MG tablet Dissolve 0.6 mg under the tongue every 5 minutes as needed for Angina Active EPINEPHrine (EPI PEN JR) 0.15 MG/0.3ML auto-injector pen Inject 0.15 mg into muscle Active acetaminophen (TYLENOL) 325 MG tablet Take 2 (two) tablets by mouth every 6 hours as needed Maximum allowable Acetaminophen amount = 4 Grams (4000 mg) / 24 hours. 2 Active senna (SENOKOT) 8.6 MG tablet Take 1 (one) tablet by mouth once daily 14 tablet 2 Active albuterol HFA (PROVENTIL; VENTOLIN; PROAIR) 108 (90 Base) MCG/ACT inhaler Inhale 2 (two) puffs by mouth every 6 hours 18 g 2 Active oxyCODONE, immediate release, (ROXICODONE) 5 MG tabletIndicatio ns:Acute Pain Take 1 (one) tablet by mouth every 4 hours as needed Reasons: Acute Pain 30 tablet 2 Active Fluticasone-Ume clidin-Vilant (TRELEGY ELLIPTA) 200-62.5-25 MCG/INH AEPB Trelegy Ellipta 200 mcg-62.5 mcg-25 mcg powder for inhalation Active budesonide-form oterol (SYMBICORT) 80-4.5 MCG/ACT inhaler Inhale 2 puffs by mouth 2 times daily Active carvedilol (COREG) 12.5 MG tablet carvedilol 12.5 mg tablet 1 Active ergocalciferol (DRISDOL) 1.25 MG (08620 UT) capsule Vitamin D2 1,250 mcg (50,000 unit) capsule Active gabapentin (NEURONTIN) 300 MG capsule Take 1 (one) capsule by mouth 3 times daily 270 capsule 4 2 Active Active Problems Problem Noted Date Diagnosed Date Splenic laceration 06/26/2021 Abdominal pain, left upper quadrant 06/26/2021 Encounter for long-term use of antiplatelets/antithrombotics 06/26/2021 Laceration of spleen 06/26/2021 Social History Tobacco Use Types Packs/Day Years Used Date Smoking Tobacco: Every Day Cigarettes Smokeless Tobacco: Current Tobacco Cessation:Counseling Given: No AUDIT-C Answer Date Recorded Q1: How often do you have a drink containing alc ohol? Never 06/27/2021 Q2: How many drinks containi ng alcohol do you have on a typical day when you are drinking? Patient declined 06/27/2021 Q3: How often do you have si x or more drinks on one occasion? Never 06/27/2021 Sex and Gender Information Value Date Recorded Sex Assigned at Not on file Legal Sex Male 5:12 AM [employer] Gender Identity Not on file Sexual Orientation Not on file Last Filed Vital Signs Vital Sign Reading Time Taken Comments Blood Pressure 126/76 08/13/2021 1:52 PM CDT Pulse 64 08/13/2021 1:52 PM CDT Temperature 36.4 C (97.5 F) 08/13/2021 1:52 PM CDT Respiratory Rate 18 08/08/2021 12:03 PM CDT Oxygen Saturation 98% 08/13/2021 1:52 PM CDT Inhaled Oxygen Concentration 21% 06/27/2021 3 :42 AM CDT Weight 90.3 kg (199 lb) 08/13/2021 1:52 PM CDT Height 180.3 cm (5' 11 ) 08/13/2021 1:52 PM CDT Body Mass Index 27.75 08/13/2021 1:52 PM CDT Plan of Treatment Health Maintenance Due Date Last Done Comments COLOGUARD (AGES 45-75) - COLON CA SCREENING 1962 COLON MONITORING 1962 COLONOSCOPY - COLON CA SCREENING 1962 CT COLONOGRAPHY - COLON CA SCREENING 1962 Colorectal Cancer Screening 1962 FIT - COLON CA SCREENING 1962 FLEX SIG - COLON CA SCREENING 1962 HIV SCREENING 1977 HEPATITIS C SCREENING 03/27/1980 DTAP/TDAP/TD VACCINES (1 - Tdap) 1981 PNEUMOCOCCAL VACCINE 50+ (1 of 2 - PCV) 1981 ZOSTER VACCINE (1 of 2) 2012 COVID-19 VACCINE (1 - ) 11/22/2023 DEPRESSION SCREENING 03/23/2024 SCREENING FOR DIABETES 06/26/2024 06/26/2021 INFLUENZA VACCINE (Season Ended) 2024 01/28/2023, 02/04/2021, 12/30/2018, Additional history exists Respiratory Syncytial Virus (RSV) Vaccine Pt: or over 60 yrs (1 - 1-dose 75+ series) 2037 HEPATITIS B VACCINE Aged Out No longe r eligible based on patient's age to complete this topic HIB VACCINE Aged Out No longer eligi ble based on patient's age to complete this topic HPV VACCINE Aged Out No longer eligi ble based on patient's age to complete this topic MENINGOCOCCAL (Group B) VACCINE SHARED DECISION-MAKING Aged Out No longer eligible based on patient's age to complete this topic MENINGOCOCCAL GROUPS A/C/Y/W VACCINE Aged Out No longer eligible based on patient's age to complete this topic Procedures Procedure Name Priority Date/Time Associated Diagnosis Comments BASIC METABOLIC PANEL (CALCIUM TOTAL) STAT 06/26/2021 12:23 AM CDT from Last 3 Months or Most Recently Relevant to Health Maintenance Results * BASIC METABOLIC PANEL (CALCIUM TOTAL) (06/26/2021 12:23 AM CDT) BUN 8 7 - 26 mg/dL 06/26/2021 12:56 AM [facility] Creatinine 0.81 0.71 - 1.16 mg/dL 06/26/2021 12:56 AM [facility] Sodium 138 136 - 145 mmol/L 06/26/2021 12:56 AM [facility] Potassium 3.5 3.5 - 4.5 mmol/L 06/26/2021 12:56 AM [facility] Chloride 105 98 - 107 mmol/L 06/26/2021 12:56 AM [facility] CO2 22 22 - 29 mmol/L 06/26/2021 12:56 AM [facility] Glucose 94 70 - 115 mg/dL 06/26/2021 12:56 AM [facility] Calcium 8.4 8.4 - 10.2 mg/dL 06/26/2021 12:56 AM CDT [facility] Anion Gap 15 8 - 18 06/26/2021 12:56 AM [facility] BUN/Creatinine Ratio 10 7 - 23 06/26/2021 12:56 AM [facility] Osmolality Calculated 284 270 - 300 mOsm/kg 06/26/2021 12:56 AM [facility] eGFR by CKD-EPI >90 >=90 mL/min/1.7 3 m2 06/26/2021 12:56 AM [facility] Blood BLOOD SPECIMEN / Unknown Venipuncture / Unknown 06/26/2021 12:23 AM CDT 06/26/2021 12:29 AM CDT Emiliano Collins MD LAB - CHEMISTRY ORDERABLES Final Result [facility] [address] [place] [address], [facility] [phone] from Last 3 Months or Most Recently Relevant to Health Maintenance Insurance [facility] Advance Directives * Full Code (Latest Code Status on File) Date Activated Date Inactivated Comments 06/26/2021 12:52 AM 06/27/2021 6:47 PM Care Teams Cloth Boil Off Machine Operator Relationship Specialty Start Date End Date Gemma Morales MD [address] [place] [address] [address] [place] [address] PCP - General Family Medicine 06/24/21
--- OUTSIDE RECORDS SUMMARY | 2024-07-08 15:18 | XMS_ITS | Data Portability ---
Author Organization [place] - [facility], Main Office Address [address] [place] [address] Assessment No assessment recorded. Plan of Treatment Reminders Order Date Submit Date Provider Last Modified By Organization Details Last Modified Time Details Appointments Follow Up 15 2024 01:00P M RAVI Barber Not available Not available Not available Lab drug screen, urine [email or web address] [place] [address] ([facility]), [address] [place], [address], 04/18/2024 14:50:33 Referral None recorded. Procedures None recorded. Surgeries None recorded. Imaging LDCT, chest, for lung cancer screening - 2 packs per day since age 17 ,48 years Please call pt to schedule 2023 024 [facility], [address], [address] [address], [place], [address], 02/03/2024 11:55:48 Medication Orders acetamino phen 300 mg-codein e 60 mg tablet 2024 025 [facility] [id number], [address], 04/18/2024 14:38:56 ketorolac 60 mg/2 mL intramusc ular solution 2023 024 [email or web address] Not available 03/02/2024 11:49:54 ketorolac 60 mg/2 mL intramusc ular solution 2023 024 [email or web address] 00 Not available 12/01/2023 17:11:47 cyanocoba martinez (vit B-12) 1,000 mcg/mL injection solution [email or web address] [facility] [address], [address], 06/21/2023 17:28:16 Patient TargetsNo targets recorded. Patient InstructionsNo instructions recorded. Reason for Referral None Reported. Results Created Date Observation Date Name Description Value Unit Range Abnormal Flag Note LastModifiedBy Organization Detail LastModifiedTime 06/15/19 24 06/15/2023 nerve condu ction study /EMG (PROC ) No observ ation record ed. [id number] [facility] [address], [place], [address], 06/16/2023 08:26:03 07/16/19 24 07/16/2023 MRI, cervi dion spine , w/wo contr ast No observ ation record ed. [address]: Pulmonology 1 [place], [address], 07/17/2023 10:58:52 07/16/19 24 07/16/2023 MRI, thora cic spine , w/wo contr ast No observ ation record ed. [address]: Pulmonology 1 [place], [address], 07/17/2023 10:59:47 07/17/19 24 07/16/2023 MRI, cervi dion spine , w/wo contr ast No observ ation record ed. [address], [address], 07/17/2023 11:59:08 09/18/19 24 09/10/2023 XR, cervi dion spine , 2 or 3 view No observ ation record ed. [address], [place], [address], 09/21/2023 16:35:23 12/02/19 24 11/30/2023 XR, cervi dion spine , 1 view No observ ation record ed. [email or web address] [facility] 1 [facility], [place], [address], 12/03/2023 09:57:20 02/03/20 24 02/03/2024 LDCT, chest , for lung cance r scree adolfo No observ ation record ed. [email or web address] [place] [address] Imaging [address] [address], [place], [address], 03/17/2024 15:32:09 03/17/20 24 02/03/2024 imagi ng/di agnos tic resul t No observ ation record ed. [facility] Not Available 2023 15:38:04 Result Notes None recorded. Problems Name Problem SNOMED Code Status Onset Date Resolution Date Notes Provider Name and Address Organization Details Recorded Time Hyperchol esterolem ia 01105604 Active 2018 Not Available [employer] 3 06:22:49 Chronic low back pain 451974737 Active 2018 Not Available [employer] 3 06:22:49 History of heroin abuse 74862562020 9105 Active 2018 Not Available [employer] 3 06:22:49 Diverticu litis 494244935 Active 2018 Not Available [employer] 3 06:22:49 Vitamin D deficienc y 74489284 Active 2018 Not Available [employer] 3 06:22:49 Depressiv e disorder 17110355 Active 2018 Not Available [employer] 3 06:22:49 Hypokalem ia 39075897 Active 2018 Not Available [employer] 3 06:22:49 Anxiety 83769849 Active 2018 Not Available [employer] 3 06:22:49 Bradycard ia 11601828 Active 2018 Not Available [employer] 3 06:22:49 Essential hypertens ion 21073169 Active 2018 Not Available [facility] 3 06:22:49 Allergic rhinitis 22328918 Active 2018 Not Available [facility] 3 06:22:49 Eustachia n tube disorder 35866243 Active 2018 Not Available [facility] 3 06:22:49 Prediabet es 964867361 Active 2018 Not Available [facility] 3 06:22:49 Complex renal cyst 079819858 Active 2018 Not Available [facility] 3 06:22:49 Spinal stenosis 85637077 Active 2018 Not Available [facility] 3 06:22:49 Obstructi ve sleep apnea syndrome 29429826 Active 2018 Not Available [facility] 3 06:22:49 Thrombose d external hemorrhoi ds 31678897 Active 2022 Not Available [facility] 3 06:22:49 Venous varices 064340471 Active 2022 Not Available [facility] 3 06:22:49 Chronic neck pain 24208370898 07 Active 2022 Not Available [facility] 3 06:22:49 Paresthes ia of upper limb 01661392 Active 2022 Not Available [facility] 3 06:22:49 Left inguinal hernia 942424472 Active 2022 Not Available [facility] 3 06:22:49 Chronic back pain 928474075 Active 2022 Not Available [facility] 3 06:22:49 Pain in right hand 62129974778 9109 Active 2022 AUBRIE Bustillo, [place] - [facility] 3 15:23:18 Pain of bilateral hands 76479454017 827323 Active 2022 Nisha Mitchell CMA null, [place] - [facility] 3 15:41:36 Dyspnea 528854192 Active 2022 RAVI Barber [address], [address], [place], [address] , [facility] 3 17:30:00 Administr ation of pneumococ dion vaccine Active 2023 RAVI Barber [address], [place], [address] , [facility] 4 10:48:31 Eczema 12672586 Active 2023 RAVI Barber [address], [place], [address] , [facility] 4 10:13:00 Vitamin B12 deficienc y (non anemic) 72462750 Active 2023 Briseida Iglesias RN null, [facility] 4 11:29:37 Nicotine dependenc e 21844581 Active 2023 RAVI Barber [address], [address], [place], [address] , [facility] [employer] [facility] 4 11:46:05 Harmful pattern of use of nicotine 339749304 Active 2023 RAVI Barber [address], [address], [place], [address] , [facility] 4 11:53:03 Administr ation of Varicella -zoster vaccine for shingles Active 2023 RAVI Barber [address], [address], [place], [address] , [facility] [employer] [facility] 4 11:54:46 Adult health examinati on Active 2023 RAVI Barber [address], [address], [place], [address] , [facility] [employer] [facility] 4 16:12:21 Extractio n Active 2024 RAVI Barber [address], [place], [address] , [facility] [employer] [facility] 5 09:37:51 Loss of teeth due to extractio n 55109800 Active 2024 RAVI Barber [address], [address], [place], [address] , [employer] 5 09:40:29 Axonal sensorimo tor neuropath y 494938180 Active 2024 see nerve conductio n /emg 06/14 RAVI Barber [address], [place], [address] , [employer] [facility] 5 12:39:42 Problem Notes None recorded. Procedures Surgical History Date Name Laterality Status Provider Name and Address Organization Details Recorded Time 4 Neck spine disk surgery completed Bharti Oliveira RN [place] [employer] [facility] 01/15/2024 11:27:06 3 Carpal tunnel surgery completed Ivone Haider MA [employer] 03/27/2023 10:18:45 3 I&D completed Gemma Morales MD [address], [facility] [address], [place], [address], [facility] [employer] [facility] 05/30/2022 16:26:39 Imaging Results Imaging Date Name Status LastModified by Organiz ation Details LastModified Time 06/15/2023 nerve conduction study/EMG (PROC) completed [email or web address] [facility] 3 [facility] [address], [place], [address], 06/16/2023 08:26:03 07/16/2023 MRI, cervical spine, w/wo contrast completed [facility]: Pulmonology [facility], [place], [address], 07/17/2023 10:58:52 07/16/2023 MRI, thoracic spine, w/wo contrast completed [address]: Pulmonology 1 [place], [address], 07/17/2023 10:59:47 07/16/2023 MRI, cervical spine, w/wo contrast completed [address], [address], 07/17/2023 11:59:08 09/10/2023 XR, cervical spine, 2 or 3 view completed [address], [address], 09/21/2023 16:35:23 11/30/2023 XR, cervical spine, 1 view completed [address], [address], 12/03/2023 09:57:20 02/03/2024 LDCT, chest, for lung cancer screening completed [address], [place], [address], 03/17/2024 15:32:09 02/03/2024 imaging/diagnos tic result completed [facility] Information not available 03/17/2024 15:38:04 Procedure Notes None recorded. Medical Equipment None Reported. Allergies Allergen ID Allergen Name Allergen Category Reaction Reaction Severity Criticality Documentation Date Start Date Code Code System Note Provider Name and Address Organization Details Recorded Time 64544 tramadol medicatio n Not available Not available Not available 05/21/2022 38067 RxNorm Not Available [facility] 20:27:48 34760 honey bee venom medicatio n Not available Not available Not available 05/21/2022 03725 7 RxNorm Not Available [facility] 20:27:48 Medications Name Sig Start Date Stop Date Status Note LastModified by Organization Details LastModified Time cyclobenzap rine 10 mg tablet TAKE 1 TABLET BY MOUTH THREE TIMES A DAY NEEDED FOR MUSCLE SPASMS 01/14 completed Not Available Not Available Not Available amoxicillin 500 mg capsule 07/22 completed Not Available Not Available Not Available fluconazole 100 mg tablet Take 1 tablet every day by oral route. 10/08 completed Not Available Not Available Not Available carvedilol 6.25 mg tablet Take 1 tablet twice a day by oral route. active Not Available Not Available No t Available prednisone 10 mg tablet TAKE 1 TABLET BY MOUTH EVERY DAY IN THE MORNING 01/14 completed Not Available Not Available Not Available carvedilol 12.5 mg tablet Take 1 tablet twice a day by oral route. active Not Available Not Available No t Available naproxen 375 mg tablet 05/08 completed Not Available Not Available Not Available albuterol sulfate 2.5 mg/3 mL (0.083 %) solution for nebulizatio n Inhale 3 mL 4 times a day by nebulizat ion route as needed. active Not Available Not Available No t Available citalopram 40 mg tablet TAKE 1 TABLET BY MOUTH EVERY EVENING 2024 active Not Available Not Available Not Avai lable ibuprofen 800 mg tablet Take 1 tablet(s) 3 times a day by oral route as needed. active Not Available Not Available No t Available citalopram 10 mg tablet Take 1 tablet(s) every day by oral route. 12/10 completed Not Available Not Available Not Available hydrocodone 5 mg-acetamin ophen 325 mg tablet Take 1 tablet 3 times a day by oral route as needed for 7 days. active Not Available Not Available No t Available prednisone 20 mg tablet Take 2 tabs PO twice daily for 2 days; 1 tab PO twice daily for 5 days; 0.5mg PO twice daily for 2 days; 0.5mg PO once for 1 day. TAKE 2ND DOSE EVERYDAY AT NOON-10 DAY COURSE active Not Available Not Available No t Available isosorbide mononitrate ER 30 mg tablet,exte nded release 24 hr TAKE 1 TABLET BY MOUTH EVERY DAY IN THE MORNING (TAKE WITH 60 MG FOR TOTAL DAILY DOSE OF 90 MG) active Not Available Not Available No t Available prednisone 5 mg tablet TAKE 1 TABLET BY MOUTH EVERY DAY FOR 30 DAYS 01/14 completed Not Available Not Available Not Available Pyridium 200 mg tablet Take 1 tablet 3 times a day by oral route. 05/18 completed Not Available Not Available Not Available Zithromax Z-Wade 250 mg tablet TAKE 2 TABLETS (500 MG) BY ORAL ROUTE ONCE DAILY FOR 1 DAY THEN 1 TABLET (250 MG) BY ORAL ROUTE ONCE DAILY FOR 4 DAYS 07/22 completed Not Available Not Available Not Available Mae Low Dose Aspirin 81 mg tablet,lynda yed release Take 1 tablet every day by oral route. 2018 active Not Available Not Available Not Avai lable thiamine HCl (vitamin B1) 100 mg tablet TAKE 1 TABLET BY MOUTH EVERY DAY active Not Available Not Available No t Available hydralazine 25 mg tablet Take 1 tablet twice a day by oral route. 05/14 completed Not Available Not Available Not Available acetaminoph en 300 mg-codeine 30 mg tablet TAKE 1 TABLET BY MOUTH EVERY 6 HOURS active Not Available Not Available No t Available ciprofloxac in 500 mg tablet Take 1 tablet every 12 hours by oral route. active Not Available Not Available No t Available hydrocodone 10 mg-acetamin ophen 325 mg tablet TAKE 1 TABLET BY MOUTH EVERY 8 HOURS NEEDED FOR PAIN 05/08 completed Not Available Not Available Not Available triamcinolo ne acetonide 0.1 % topical cream APPLY A THIN LAYER TO THE AFFECTED AREA(S) TWICE A DAY active Not Available Not Available No t Available ketorolac 30 mg/mL (1 mL) injection solution Inject 2 mL every 6 hours by intramusc ular route. 06/04 completed Not Available Not Available Not Available Depo-Medrol 80 mg/mL suspension for injection Take 1 mL every day by injection route for 1 day. 2023 active Not Available Not Available Not Avai lable hydrocortis one acetate 25 mg rectal suppository Insert 1 supposito ry twice a day by rectal route for 14 days. 10/18 completed Not Available Not Available Not Available oxycodone-a cetaminophe n 5 mg-325 mg tablet Take 1 tablet every 6 hours by oral route. active Not Available Not Available No t Available hydrocortis one 2.5 % topical cream with perineal applicator APPLY SPARINGLY TO AFFECTED AREA 2 TO 4 TIMES A DAY active Not Available Not Available No t Available isosorbide mononitrate ER 60 mg tablet,exte nded release 24 hr TAKE 1 TABLET BY MOUTH EVERY DAY IN THE MORNING 06/04 completed Not Available Not Available Not Available propranolol 40 mg tablet TAKE 1 TABLET(S) TWICE A DAY BY ORAL ROUTE. 09/19 completed Not Available Not Available Not Available citalopram 20 mg tablet TAKE 1 TABLET BY MOUTH DAILY active Not Available Not Available No t Available cyanocobala min (vit B-12) 1,000 mcg/mL injection solution Inject 1 mL every month by subcutane ous route. 2023 active Not Available Not Available Not Avai lable oseltamivir 75 mg capsule TAKE 1 CAPSULE BY MOUTH TWICE A DAY 06/29 completed Not Available Not Available Not Available dexamethaso ne 4 mg tablet PLEASE SEE ATTACHED FOR DETAILED DIRECTION S 01/14 completed Not Available Not Available Not Available clotrimazol e-betametha sone 1 %-0.05 % topical cream active Not Available Not Available Not Available polymyxin B sulfate 10,000 unit-trimet hoprim 1 mg/mL eye drops INSTILL 2 DROPS INTO BOTH EYES 4 TIMES DAILY 05/18 completed Not Available Not Available Not Available nitroglycer in 0.4 mg sublingual tablet active Not Available Not Available Not Available gabapentin 300 mg capsule TAKE 2 CAPSULES BY MOUTH 3 TIMES A DAY active Not Available Not Available No t Available omeprazole 20 mg capsule,del ayed release Take 1 capsule every day by oral route. 06/04 completed Not Available Not Available Not Available acetaminoph en 300 mg-codeine 60 mg tablet TAKE 1 TO 2 TABS BY MOUTH EVERY 8 HOURS NEEDED. MAKE LAST 30 DAYS ., CUTTING BACK A LITTLE 2024 active Not Available Not Available Not Avai lable hydralazine 50 mg tablet TAKE 1 TABLET BY MOUTH TWICE A DAY 02/15 completed Not Available Not Available Not Available Levaquin 500 mg tablet Take 1 tablet every 24 hours by oral route. 02/15 completed Not Available Not Available Not Available clobetasol 0.05 % topical ointment APPLY A THIN LAYER TO THE AFFECTED AREA(S) HANDS BY TOPICAL ROUTE 2 TIMES PER DAY active Not Available Not Available No t Available levofloxaci n 750 mg tablet TK 1 T PO QD 03/24 completed Not Available Not Available Not Available methylpredn isolone 4 mg tablets in a dose pack Use as directed 05/08 completed Not Available Not Available Not Available albuterol sulfate HFA 90 mcg/actuati on aerosol inhaler INHALE 2 PUFFS BY MOUTH EVERY FOUR HOURS active Not Available Not Available No t Available Vitamin D2 1,250 mcg (50,000 unit) capsule TAKE 1 CAPSULE BY MOUTH EVERY WEEK 05/08 completed Not Available Not Available Not Available ketorolac 60 mg/2 mL intramuscul ar solution Inject 2 mL by intramusc ular route for 1 day. 2023 active Not Available Not Available Not Avai lable ondansetron 4 mg disintegrat ing tablet active Not Available Not Available N ot Available losartan 100 mg tablet TAKE 1 TABLET BY MOUTH DAILY active Not Available Not Available No t Available acetaminoph en 500 mg capsule Take 2 capsules every 6 hours by oral route. 09/19 completed Not Available Not Available Not Available diazepam 5 mg tablet TAKE 1 TABLET (5 MG TOTAL) BY MOUTH EVERY 6 (SIX) HOURS NEEDED (SPASMS). 01/14 completed Not Available Not Available Not Available amoxicillin 875 mg-potassiu m clavulanate 125 mg tablet active Not Available Not Available Not Available oxycodone 5 mg tablet 09/12 completed Not Available Not Available Not Available Pneumovax-2 3 25 mcg/0.5 mL injection syringe TO BE ADMINISTE RED BY PHARMACIS T FOR IMMUNIZAT ION 05/18 completed Not Available Not Available Not Available rosuvastati n 20 mg tablet TAKE 1 TABLET BY MOUTH EVERY DAY active Not Available Not Available No t Available Spiriva with HandiHaler 18 mcg and inhalation capsules INHALE THE CONTENTS OF ONE CAPSULE ONCE DAILY VIA HANDIHALE R active Not Available Not Available No t Available chlorhexidi ne gluconate 0.12 % mouthwash active Not Available Not Available No t Available fluticasone propionate use 1 spray daily as needed 09/19 completed Not Available Not Available Not Available calcium carbonate-v itamin D2 04/16 completed Not Available Not Available Not Available budesonide- formoterol HFA 160 mcg-4.5 mcg/actuati on aerosol inhaler Inhale 2 puffs twice a day by inhalatio n route. 01/14 completed Not Available Not Available Not Available Senexon-S 8.6 mg-50 mg tablet TAKE 1 TABLET BY MOUTH TWICE A DAY FOR 2 WEEKS 01/14 completed Not Available Not Available Not Available Brilinta 90 mg tablet take 1 tablet twice daily 12/10 completed Not Available Not Available Not Available Chantix Starting Month Box 0.5 mg (11)-1 mg (42) tablets in dose pack Use as directed. active Not Available Not Available No t Available Brilinta 60 mg tablet active Not Available Not Available No t Available Narcan 4 mg/actuatio n nasal spray CALL 911. U 1 SPRAY IN ONE NOSTRIL. MAY REPEAT Q 2 TO 3 MINUTES IF SYMPTOMS OF OPIOID EMERGENCY PERSIST ALTERNATI NG NOSTRILS. active Not Available Not Available No t Available Afluria Qd 2019- (36 mos up)(PF)60 mcg (15 mcg x4)/0.5 mL IM syringe active Not Available Not Available N ot Available Trelegy Ellipta 200 mcg-62.5 mcg-25 mcg powder for inhalation INHALE 1 PUFF BY MOUTH DAILY active Not Available Not Available No t Available Vitals Date Recorded Body height Body mass index (BMI) Body weight Body temperature Heart rate Oxygen saturation Oxygen saturation in Arterial blood by Pulse oximetry Systolic blood pressure Diastolic blood pressure Provider Name and Address Organization Details Last Updated DateTime 4 180.34 cm 27.1 kg/m2 61277.9 2 g 97.8 [degF] 66 /min 96 % 96 % 140 mm[Hg] 92 mm[Hg] Bharti Oliveira RN [facility] 4 11:33:07 Date Recorded Body height Body mass index (BMI) Body weight Body temperature Heart rate Oxygen saturation Oxygen saturation in Arterial blood by Pulse oximetry Systolic blood pressure Diastolic blood pressure Provider Name and Address Organization Details Last Updated DateTime 4 180.34 cm 26.8 kg/m2 16008.7 4 g 97.4 [degF] 58 /min 99 % 99 % 160 mm[Hg] 110 mm[Hg] Bharti Oliveira RN [facility] 4 11:12:59 Date Recorded Body height Body mass index (BMI) Body weight Body temperature Heart rate Oxygen saturation Oxygen saturation in Arterial blood by Pulse oximetry Systolic blood pressure Diastolic blood pressure Provider Name and Address Organization Details Last Updated DateTime 5 180.34 cm 26.1 kg/m2 36909.7 7 g 98 [degF] 84 /min 98 % 98 % 112 mm[Hg] 80 mm[Hg] Vianney Mckeon CMA [place] [facility] 5 14:28:08 Social History Question Answer Notes LastModified by Organizat ion Details LastModified Time Tobacco Smoking Status Current Every Day Smoker Not Available [facility] 05/21/2022 20:24:03 What Is Your Level Of Alcohol Consumption? None [id number] Information not available 05/21/2022 In The 14 Days Before Symptom Onset, Have You Had Close Contact With A Laboratory-confirm ed COVID-19 While That Case Was Ill? No [id number] Information not available 05/21/2022 In The 14 Days Before Symptom Onset, Have You Had Close Contact With A Person Who Is Under Investigation For COVID-19 While That Person Was Ill? No [id number] Information not available 05/21/2022 How Much Tobacco Do You Smoke? 1 PPD [id number] Information not available 05/21/2022 How Many Years Have You Smoked Tobacco? 43 [id number] Information not available 05/21/2022 Sex: Unknown Functional Status None recorded. Mental Status None recorded. Family History Relationship Description Onset Age of this Age Resolved Age Notes LastModified by Organization Details LastModified Time Father Family history of malignant neoplasm [id number] Not available 05/21/2022 20:24:13 Mother Family history of malignant neoplasm [id number] Not available 05/21/2022 20:24:13 Maternal Grandmother Family history of malignant neoplasm [id number] Not available 05/21/2022 20:24:13 Medical History No medical history recorded. Immunizations Vaccine Type Date Status Note Provider Nam e and Address Organization Details Recorded Time Influenza, split virus, quadrivalent, preservative 2 completed Not Available [facility] 12/17/2022 06:22:49 Influenza, split virus, quadrivalent, preservative 1 completed Not Available [facility] 12/17/2022 06:22:49 influenza, unspecified formulation 3 completed Kaylan alberto, [place] [employer] 01/27/2023 12:15:53 Pneumococcal conjugate PCV 13 4 completed RAVI Barber [address], [address], [place], [address], [employer] 03/29/2023 13:18:24 Influenza, split virus, trivalent, PF 4 completed RAVI Barber [address], [address], [place], [address], [employer] 01/18/2024 16:07:43 zoster recombinant 4 completed RAVI Barber [address], [address], [place], [address], [employer] 01/18/2024 16:07:43 Past Encounters Encounter ID Performer Location Encounter Start Date Encounter Closed Date Diagnosis/Indication Diagnosis SNOMED-CT Code Diagnosis ICD10 Code Diagnosis Note [id number] [facility] [place] [address] [place] [address] 06/27/2020 00:00:00 06/28/2020 06:26:35 [id number] [facility] [place] [address] [place] [address] 10/08/2020 00:00:00 10/08/2020 22:33:20 [id number] [facility] [place] [address] [place] [address] 12/10/2020 00:00:00 12/11/2020 06:18:29 [id number] [facility] [place] [address] [place] [address] 01/08/2021 00:00:00 01/08/2021 13:56:40 [id number] [facility] [place] [address] [place] [address] 01/16/2021 00:00:00 01/16/2021 21:11:35 [id number] [facility] [place] [address] [place], [place] [address] 02/13/2021 00:00:00 02/13/2021 20:40:22 [id number] [facility] [place] [address] [place] [address] 04/17/2021 00:00:00 04/18/2021 06:06:24 [id number] [facility] [place] [address] [place] [address] 05/15/2021 00:00:00 05/15/2021 19:21:10 [id number] [facility] [place] [address] [place] [address] 05/29/2021 00:00:00 05/29/2021 20:35:07 [id number] [facility] [place] [address] [place] [address] 06/19/2021 00:00:00 06/19/2021 19:06:46 [id number] [facility] [place] [address] [place] [address] 07/09/2021 00:00:00 07/09/2021 10:33:10 [id number] [facility] [place] [address] [place] [address] 09/12/2021 00:00:00 09/12/2021 21:52:58 [id number] [facility] [place] [address] [place] [address] 11/05/2021 00:00:00 11/05/2021 20:27:08 [id number] [facility] [place] [address] [place] [address] [place] [address] 12/10/2021 00:00:00 12/11/2021 06:54:40 [id number] [facility] [place] [address] [place] [address] [place] [address] 04/02/2022 00:00:00 04/02/2022 10:18:28 [id number] Gemma Morales MD [facility] [place] [address] [place] [address] [place] [address] 05/30/2022 11:16:13 05/30/2022 11:54:45 Thrombosed external hemorrhoids 97738955 K64.5 I&D of hemorrhoid done [id number] Gemma Morales MD [facility] [place] [address] [place] [address] [place] [address] 07/22/2022 09:35:28 07/22/2022 10:02:22 Venous varices 670385092 I86.8 Heat and elevation and tylenol Needs a note off from work for tonight. Essential hypertension 52978523 I10 Has not taken BP meds today. Needs to watch salt in diet and monitor BP away from here. Has been getting headaches. Check BP when has headaches and call if needs to be seen for BP. [id number] Gemma Morales MD [facility] [address] [place] [address] [place] [address] 09/18/2022 08:50:45 09/18/2022 09:28:02 Chronic low back pain 823891252 M54.50 [id number] Gemma Morales MD [facility] [place] [address] [place] [address] [place] [address] 09/26/2022 10:10:45 10/15/2022 15:34:54 Chronic low back pain 128592529 M54.50 [id number] Gemma Morales MD [facility] [place] [address] [place] [address] 12/16/2022 09:37:10 12/16/2022 10:06:30 Chronic neck pain 9688572118 107 M54.2 Paresthesi a of upper limb 64873851 R20.2 May need to see hand surgeon Left inguinal hernia 236 115768 K40.90 Chronic low back pain 27 7598327 M54.50 Will increase to #120 of codeine at next med refill. [id number] Brandin hung MD [facility] General Surgery [address] [facility], [facility] [address] [place] [address] 01/15/2023 11:29:38 01/15/2023 15:05:43 Left inguinal hernia 415666012 K40.90 [id number] RAVI Barber [facility] [place] [address] [place] [address] 03/27/2023 10:07:20 03/27/2023 11:53:45 Paresthesia of upper limb 82295983 R20.2 Administra tion of pneumococcal vaccine 67793611 Z23 [id number] RAVI Barber [facility] [place] [address] [place] [address] 04/16/2023 11:40:23 04/22/2023 15:04:36 Venous varices 943519199 I86.8 Obstructiv e sleep apnea syndrome 27320710 G47.33 Essential hypertension 96594953 I10 [id number] RAVI Barber [facility] [place] [address] [place] [address] 05/08/2023 09:11:07 05/08/2023 09:37:31 Chronic low back pain 490062109 M54.50 Allergic rhinitis 124663 04 J30.9 Anxiety 11195792 F41.9 Chronic back pain 135330 002 G89.29 Chronic neck pain 160505 1924 107 M54.2 Essential hypertension 73981772 I10 Hypercholesterolemia 136 51834 E78.00 Spinal stenosis 07756935 M48.00 Vitamin D deficiency 347 48829 E55.9 Venous varices 032644722 I86.8 [id number] RAVI Barber [facility] [place] [address] [place] [address] [place] [address] 06/05/2023 09:51:00 06/05/2023 10:34:14 Chronic low back pain 983855361 M54.50 Eczema 65301627 L30.9 Allergic rhinitis 792829 04 J30.9 Anxiety 50188820 F41.9 Complex renal cyst 51450 1001 N28.1 Depressive disorder 3548 9007 F32.A Essential hypertension 08145536 I10 Obstructiv e sleep apnea syndrome 23432507 G47.33 Spinal stenosis 92321633 M48.00 Venous varices 861985767 I86.8 Vitamin B1 2 deficiency (non anemic) 89233291 E53.8 Vitamin D deficiency 347 09620 E55.9 [id number] RAVI Barber [facility] [place] [address] [facility] [place] [address] 06/19/2023 11:12:51 07/02/2023 10:33:36 Vitamin B12 deficiency (non anemic) 74479695 E53.8 Allergic rhinitis 781915 04 J30.9 Anxiety 42207258 F41.9 Chronic back pain 348514 002 G89.29 Chronic neck pain 389848 0400 107 M54.2 Depressive disorder 3548 9007 F32.A Essential hypertension 74947591 I10 Hypercholesterolemia 136 13066 E78.00 Obstructiv e sleep apnea syndrome 59530688 G47.33 Spinal stenosis 08830688 M48.00 Venous varices 293103655 I86.8 Vitamin D deficiency 347 66310 E55.9 [id number] RAVI Barber [facility] [place] [address] [facility] [place] [address] 12/01/2023 11:16:10 12/21/2023 15:02:02 Chronic back pain 727590965 G89.29 [id number] RAVI Barber [facility] [address] [place] [address] 01/15/2024 11:11:54 01/15/2024 11:57:22 Administration of influenza vaccine 36091625 Z23 Nicotine dependence 5629 4008 F17.200 Vitamin D deficiency 347 57782 E55.9 Vitamin B1 2 deficiency (non anemic) 48596208 E53.8 History of nicotine dependence 4427983808 05640744 Z87.891 Administra tion of viral vaccine 50229457 Z23 Chronic neck pain 878124 6423 107 M54.2 Depressive disorder 3548 9007 F32.A Essential hypertension 54807519 I10 Obstructiv e sleep apnea syndrome 58825767 G47.33 Spinal stenosis 43233001 M48.00 Adult heal th examination 835445181 Z00.00 Allergic rhinitis 952256 04 J30.9 Anxiety 11569303 F41.9 Chronic low back pain 27 0934199 M54.50 Hypokalemia 29930983 E87 .6 Venous varices 625451541 I86.8 [id number] RAVI Barber [address] [address] 03/02/2024 11:02:51 03/02/2024 12:08:57 Chronic low back pain 879527410 M54.50 [id number] RAVI Barber [address] [address] 04/18/2024 14:15:39 04/18/2024 14:52:31 Loss of teeth due to extraction 64886437 K08.409 Chronic low back pain 27 6341423 M54.50 Administra tion of viral vaccine 31082908 Z23 Long-term current use of opiate analgesic drug 3016971797 25475 Z79.891 Health Concerns Section Related Observation LastModified by Organization Detai ls LastModified Time None Recorded Concern Status LastModified by Organization Details LastModified Time None Recorded Advance Directives Directive None Recorded Payers Encounter Date Sequence Insurance Name Policy Number Policy Musa Covered Member ID Musa Member ID Guarantor Name 06/18/2023 1 [facility] [id number] Cisco Manzo [id number] Cisco Manzo 12/01/2023 1 [facility] [id number] Cisco Manzo [id number] Cisco Manzo 01/15/2024 1 [facility] [id number] Cisco Manzo [id number] Cisco Manzo 03/02/2024 1 [facility] [id number] Cisco Manzo [id number] Cisco Manzo 04/18/2024 1 [place] 000 Cisco Manzo [id number] Cisco Manzo Notes Date Note Type Note Provider Name and Address Organization Details Recorded Time 06/18/2023 text/html no changes RAVI Barber [address] [facility], [place], [address], [place] 06/30/2023 16:31:29 01/15/2024 text/html not due for pneumovax till March . one year after his prevnar 13 vaccine . RAVI Barber [address] [facility], [place], [address], [place] 01/18/2024 16:18:14 03/02/2024 text/html 7 teeth being pulled in March. lbp , no worse , toradol injections help . is not taking NSAIds RAVI Barber [address], [place], [address], [place] 03/19/2024 16:03:36 04/18/2024 text/html needs second shingles vaccine . RAVI Barber [address], [place], [address], [place] 04/22/2024 12:40:42
--- OUTSIDE RECORDS SUMMARY | 2024-07-08 15:18 | XMS_ITS | Encounter Summary ---
Author Organization [facility] Address [address] [place] [address] Care Team Providers Care Glaze Supervisor Name Role Phone Gemma Gaytan MD Primary Care Provider [phone] Benja May MD Unavailable [phone] Encounter Details Date Type Department Care Team (Late st Contact Info) Description 08/18/2023 Top10 Mediat Message Enc [facility] Medical Group Multispecialty Care - [facility] [address] [facility], [address] [place] [address] Dai Faria APRN 3 [facility] [address] [place] [address] Magnetic collar Social History Tobacco Use Types Packs/Day Years [...] from your doctor or pharmacy? Never 07/17/2023 [facility] Utilities Answer Date Recorded In [...] week 07/17/2023 How often do you attend [facility] or sabianist services? Never 07/17/2023 Do you belong to any clubs o r organizations such as alevism groups, unions, fraternal or athletic groups, or [...] Recorded Patient Health Questionnaire-2 Score 0 07/17/2023 [facility] of Occupat ional Health - Occupational Stress [...] any time in the past 12 m [facility], were you homeless or living in a longterm (including now)? No 07/17/2023 Sex and Gender Information Value Date Recorded Sex Assigned at Not on file Legal Sex Male 8:04 PM CDT Gender Identity Not on file Sexual Orientation [...] Assessment Author Status Yes 07/18/2023 4:26 AM Abbey Escalante RN Active * Because of a physical, mental, or emotional condition, do you have difficulty doing errands alone such as visiting a doctor's office or shopping? Answer Date of Assessment Author Status No 07/17/2023 9:52 PM Abbey Escalante RN Active documented as of this encounter Mental Status * Because of a physical, mental, or emotional condition, do you have serious difficulty concentrating, remembering, or making decisions? Answer Entry Date Author Status No 07/18/2023 4:26 AM Abbey Escalante RN Active documented in this encounter Plan of Treatment Not on file documented as of this encounter Goals Goal Patient Goal Type Associated Problems Recent Progress Patient-Stated? Author Family - family caregiver with be involved in care transitions and discharge planning Lifestyle No Mal Alva RN documented as of this encounter Visit Diagnoses Not on filedocumented in this encounter Care Teams Glaze Supervisor Relationship Specialty Start Date End Date Gemma Gaytan MD [facility] [place] [address] PCP - General FAMILY PRACTICE 12/19/22 Benja May MD [address] [facility] [address] [place], [place] [address] CARDIOVASCULAR DISEASE 03/10/23 documented as of this encounter
--- OUTSIDE RECORDS SUMMARY | 2024-07-08 15:18 | XMS_ITS | Encounter Summary ---
Author Organization [facility] Address [address] [place] [address] Care Team Providers Care Regrinder Name Role Phone Gemma Gaytan MD Primary Care Provider [phone] Benja May MD Unavailable [phone] Encounter Details Date Type Department Care Team (Late st Contact Info) Description 07/27/2023 Vidiowikit Message Enc [facility] Medical Group Multispecialty Care - [facility] 3 [facility], [address] [place] [phone] Marcell Arana MD 3 [place] [address] Personal care Social History Tobacco Use Types Packs/Day Years Used Date Smoking Tobacco: Never Assessed Cigarettes 1.5 47.3 Started: 1975 Smokeless Tobacco: Never Alcohol Use Standard Drinks/Week Comments Never 0 (1 standard drink = 0.6 oz pur e alcohol) B1300 Health Literacy Answer Date Recor ded How often do you need to hav e someone help you when you read instructions, pamphlets, or other written material from your doctor or pharmacy? Never 07/17/2023 [facility] Utilities Answer Date Recorded In the past [...] How often do you attend chur or restorationism services? Never 07/17/2023 Do you belong to any clubs o r organizations such as sikhism groups, unions, fraternal or athletic groups, or [...] Recorded Patient Health Questionnaire-2 Score 0 07/17/2023 [facility] of Occupat ional Health - Occupational Stress [...] any time in the past 12 m [facility], were you homeless or living in a usp (including now)? No 07/17/2023 Sex and Gender [...] Escalante RN Active * Do you have difficulty [...] on filedocumented in this encounter Care Teams Regrinder Relationship Specialty Start Date End Date Gemma Gaytan MD [facility] [place] [address] PCP - General FAMILY PRACTICE 12/19/22 Benja May MD [address] [facility] [address] [place], [place] [address] CARDIOVASCULAR DISEASE 03/10/23 documented as of this encounter
--- OUTSIDE RECORDS SUMMARY | 2024-07-08 15:18 | XMS_ITS | Clinical Summary ---
Author Organization [facility] Address [address] [place] [address] Phone Care Team Providers Care Manager Surgical Name Role Phone Kailash Peres APRN, COMPENSATION ANALYST Primary Care Pro vider Aki Hanson MD Unavailable [phone] Allergies Active Allergy Reactions Criticality Noted Date Comments Bee Venom Anaphylaxis High 09/29/2019 Honey bees Tramadol Other (see Comments),Nausea Low 12/31/19 19 Medications albuterol 108 (90 Base) MCG/ACT Aerosol Solution Inhale 2 puffs every 4 hours by inhalation route for 30 days. 0 Active aspirin 81 MG Chewable Tablet Take 81 mg by mouth. Active Brilinta 60 MG Tablet 3 Active carvedilol (COREG) 12.5 MG Tablet Take 1 tablet twice a day by oral route. 1 Active citalopram (CeleXA) 40 MG Tablet Take 1 Tablet by mouth daily. Active EPINEPHrine (EPIPEN) 0.3 MG/0.3ML Solution Auto-injector 0.3 mg by Intramuscular route. Active gabapentin (NEURONTIN) 300 MG Capsule TAKE 2 CAPSULES BY MOUTH 3 TIMES A DAY 2 Active losartan (COZAAR) 100 MG Tablet Take 1 Tablet by mouth daily. 2 Active naloxone HCl (Narcan) 4 MG/0.1ML Liquid CALL 911. U 1 SPRAY IN ONE NOSTRIL. MAY REPEAT Q 2 TO 3 MINUTES IF SYMPTOMS OF OPIOID EMERGENCY PERSIST ALTERNATING NOSTRILS. Active nitroGLYCERIN (NITROSTAT) 0.4 MG SL Tablet 0 Active predniSONE (DELTASONE) 20 MG Tablet PLEASE SEE ATTACHED FOR DETAILED DIRECTIONS Active thiamine (VITAMIN B1) 100 MG Tablet Take 1 Tablet by mouth daily. 30 Tablet 4 Active Active Problems No known active problems Family History Medical History Relation Name Comments Lung Cancer Father Cancer Maternal Grandmother Breast Cancer Mother Cancer Sister Relation Name Status Comments Father Maternal Grandmother Mother Sister bone cancer Social History Tobacco Use Types Packs/Day Years Used Date Smoking Tobacco: Every Day Cigarettes Smokeless Tobacco: Never Tobacco Cessation:Ready to Q uit: Not Asked; Counseling Given: Not Answered Alcohol Use Standard Drinks/Week Comments Not Currently 0 (1 standard drink = 0.6 oz pur e alcohol) Sex and Gender Information Value Date Recorded Sex Assigned at Not on file 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 Gender Identity Not on file Sexual Orientation Not on file Last Filed Vital Signs Vital Sign Reading Time Taken Comments Blood Pressure 140/92 07/17/2023 12:43 PM CDT Pulse 65 07/17/2023 12:43 PM CDT Temperature 36.8 C (98.2 F) 07/17/2023 12:43 PM CDT Respiratory Rate 18 07/17/2023 12:43 PM CDT Oxygen Saturation 98% 07/17/2023 12:43 PM CDT Inhaled Oxygen Concentration - - Weight 89.9 kg (198 lb 4.8 oz) 07/17/2023 12:43 PM CDT Height 180.3 cm (5' 11 ) 07/17/2023 12:43 PM CDT Body Mass Index 27.66 07/17/2023 12:43 PM CDT Plan of Treatment Health Maintenance Due Date Last Done Comments Hepatitis C Virus (HCV) Screening 1962 Colonoscopy 2007 Colorectal Cancer Screening 2007 Cologuard 2012 Immunochemical Fecal Occult Blood 2012 Zoster Immunization (1 of 2) 2012 PSA Discussion 2017 Respiratory Syncytial Virus (RSV) Immunization (Adult) (1 - Risk 60-74 years 1-dose series) 2022 Influenza Immunization (#1) 2023 11/0 09/2022, 01/27/2023, 01/06/2022, Additional history exists SARS-COV-2 Immunization ( - 2023-25 season) 2023 Pneumococcal Immunization (50+ years) (3 of 3 - PCV20 or PCV21) 03/27/2028 03/27/2023, 02/01/2019, 02/01/2019 DTaP/Tdap/Td Immunization Discontinued 02/13/2019, 11/2016 TdaP Immunization Completed 02/13/2019, 05/01/2016 Pneumococcal Immunization Combined Discontinued 03/27/2023, 02/01/2019, 02/01/2019 Hepatitis B Immunization Aged Out No longer eligible based on patient's age to complete this topic Meningococcal Immunization (ACWY) Aged Out No longer eligible based on patient's age to complete this topic Rotavirus Immunization Aged Out No lo nger eligible based on patient's age to complete this topic Insurance Care Teams Manager Surgical Relationship Specialty Start Date End Date Kailash Peres APRN, COMPENSATION ANALYST [address] [place] [address] DR CINTHYA Simon [facility] [address] [place] [address] PCP - General Advanced Practice Nurse 04/20/17 Aki Hanson MD [address] [address] Consulting Physician Oncology 08/18/23
--- OUTSIDE RECORDS SUMMARY | 2024-07-08 15:18 | XMS_ITS | Encounter Summary ---
Author Organization [facility] Address [address] [place] [address] Care Team Providers Care Cold Roller Name Role Phone Gemma Gaytan MD Primary Care Provider [phone] Benja May MD Unavailable [phone] Encounter Details Date Type Department Care Team (Late st Contact Info) Description 09/14/2023 Kitanit Message Enc [facility] Medical Group Multispecialty Care - [facility] 3 [facility], [address] [place] [phone] Marcell Arana MD 3 [place] [address] Swallowing Social History Tobacco Use Types Packs/Day Years [...] from your doctor or pharmacy? Never 07/17/2023 [facility] Utilities Answer Date Recorded In the [...] week 07/17/2023 How often do you attend [facility] or holiness services? Never 07/17/2023 Do you belong to any clubs o r organizations such as yazdanism groups, unions, fraternal or athletic groups, or [...] Recorded Patient Health Questionnaire-2 Score 0 07/17/2023 [facility] of Occupat ional Health - Occupational Stress [...] any time in the past 12 m [facility], were you homeless or living in a senior care (including now)? No 07/17/2023 Sex and Gender [...] Progress Notes * Leeann Cardenas MA - 09/14/2023 10:35 AM CDT Forwarding to AA documented in this encounter Plan of Treatment Not on file documented as of this encounter Goals Goal Patient Goal Type Associated Problems Recent Progress Patient-Stated? Author Family - family caregiver with be involved in care transitions and discharge planning Lifestyle No Mal Alva RN documented as of this encounter Visit Diagnoses Not on filedocumented in this encounter Care Teams Cold Roller Relationship Specialty Start Date End Date Gemma Gaytan MD [facility] [place] [address] PCP - General FAMILY PRACTICE 12/19/22 Benja May MD [address] [place], [place] [address] CARDIOVASCULAR DISEASE 03/10/23 documented as of this encounter
--- OUTSIDE RECORDS SUMMARY | 2024-07-08 15:18 | XMS_ITS | Encounter Summary ---
Author Organization [facility] Address [address] [place] [address] Care Team Providers Care Face Worker Name Role Phone Gemma Gaytan MD Primary Care Provider [phone] Benja May MD Unavailable [phone] Encounter Details Date Type Department Care Team (Late st Contact Info) Description 01/02/2023 Prep for Procedure [facility] Medical Group [facility] - [place] [address] [place] [address] Mark Maza MD [address] [place] [address] Social History Tobacco Use Types Packs/Day Years Used Date Smoking Tobacco: Never Assessed Sex and Gender Information Value Date Recorded Sex Assigned at Not on file Legal Sex Male 8:04 PM CDT Gender Identity Not on file Sexual Orientation Not on file documented as of this encounter Plan of Treatment Not on file documented as of this encounter Visit Diagnoses Not on filedocumented in this encounter Care Teams Face Worker Relationship Specialty Start Date End Date Gemma Gaytan MD [address] [place] [address] [address] [place] [address] PCP - General FAMILY PRACTICE 12/19/22 Benja May MD [address] [facility] [address] [facility] [address] [place] [address] CARDIOVASCULAR DISEASE 03/10/23 documented as of this encounter
--- OUTSIDE RECORDS SUMMARY | 2024-07-08 15:18 | XMS_ITS | Encounter Summary ---
Author Organization [facility] Address [address] [place] [address] Care Team Providers Care Bleach Maker Name Role Phone Gemma Gaytan MD Primary Care Provider [phone] Benja May MD Unavailable [phone] Encounter Details Date Type Department Care Team (Late st Contact Info) Description 03/04/2024 VendorStackt Message Enc [facility] Medical Group Multispecialty Care - [facility] [address] [facility], [address] [place] [phone] Marcell Arana MD [address] [place] [address] Prednisone Social History Tobacco Use Types Packs/Day Years [...] from your doctor or pharmacy? Never 07/17/2023 [facility] Utilities Answer Date Recorded In [...] week 07/17/2023 How often do you attend [facility] or christianity services? Never 07/17/2023 Do you belong to any clubs o r organizations such as lutheran groups, unions, fraternal or athletic groups, or [...] Recorded Patient Health Questionnaire-2 Score 0 07/17/2023 [facility] of Occupat ional Health - Occupational [...] any time in the past 12 m [facility], were you homeless or living in a fdc (including now)? No 07/17/2023 Sex and Gender [...] on filedocumented in this encounter Care Teams Bleach Maker Relationship Specialty Start Date End Date Gemma Gaytan MD [facility] [address] [place] [address] PCP - General FAMILY PRACTICE 12/19/22 Benja May MD [address] [facility] [address] [place], [place] [address] CARDIOVASCULAR DISEASE 03/10/23 documented as of this encounter
--- OUTSIDE RECORDS SUMMARY | 2024-07-08 15:19 | XMS_ITS | Referral Summary ---
Author Organization [facility] Address [address] [place] [address] Care Team Providers Care Finisher Operator Name Role Phone Dylon Garcai Primary Care Provider + Encounters Date Type Department Care Team Description 05/04/2024 Telephone [facility] Cardiology [address] [place] [address] [place] [phone] Sabrina Leal NP 04/19/2024 Telephone [facility] Cardiology [address] [place] [address] [address] [place] [phone] Sabrina Leal NP 04/18/2024 Telephone [facility] Cardiology [address] [place] [address] [address] [place] [phone] Sabrina Leal NP 04/18/2024 10:15 AM DATA MODELER Ancillary Procedure [facility] Cardiology [address] [place] [address] [place] [phone] elevation myocardial infarction (STEMI); Chest pain, unspecified type 04/11/2024 Telephone [facility] Cardiology [address] [place] [address] [address] [place] [phone] Benja May MD Chest Pain from Last 3 Months Allergies Active Allergy Reactions Criticality Noted Date Comments Tramadol Nausea only Low 12/30/2018 Venom-Honey Bee Anaphylaxis High 09/29/2019 Honey bees Medications VITAMIN D2 50,000 unit capsule once a week 9 Active SPIRIVA WITH HANDIHALER 18 mcg per inhalation capsule 10/07/201 9 Active citalopram (CeleXA) 10 mg tablet Take 2 tablets (20 mg total) by mouth daily Active acetaminophen (TYLENOL) 500 mg tablet Take 1 tablet (500 mg total) by mouth every 6 (six) hours as needed for pain Active aspirin 81 mg enteric coated tablet Take 1 tablet (81 mg total) by mouth daily Active EPINEPHrine 0.3 mg/0.3 mL auto-injection syringeIndicatio ns:Anaphylaxis Inject 0.3 mL (0.3 mg total) into the muscle as instructed as needed Active albuterol HFA (PROVENTIL HFA,VENTOLIN HFA,PROAIR HFA) 90 mcg/actuation inhaler as needed 0 Active Trelegy Ellipta 200-62.5-25 mcg inhaler daily 1 Active omeprazole (PriLOSEC) 20 mg capsule 1 capsule (20 mg total) as needed 1 Active acetaminophen-co deine (TYLENOL with CODEINE #4) 300-60 mg per tablet 2 Active losartan (COZAAR) 100 mg tablet TAKE 1 TABLET BY MOUTH DAILY 30 tablet 1 2 Active rosuvastatin (CRESTOR) 20 mg tabletIndication s:Coronary artery disease involving [place] coronary artery of [place] heart without angina pectoris Take 1 tablet (20 mg total) by mouth daily 90 tablet 3 4 Active carvediloL (COREG) 12.5 mg tabletIndication s:Cardiomyopathy , ischemic TAKE 1 TABLET BY MOUTH TWICE A DAY WITH MEALS 60 tablet 3 4 Active Brilinta 60 mg tabletIndication s:Presence of stent in coronary artery TAKE 1 TABLET BY MOUTH TWICE A DAY 60 tablet 5 4 Active isosorbide mononitrate ER (IMDUR) 30 mg 24 hr tabletIndication s:Chest pain, unspecified type Take 1 tablet (30 mg total) by mouth daily 30 tablet 11 5 04/19/19 26 Active nitroglycerin (NITROSTAT) 0.4 mg SL tabletIndication s:Chest pain, unspecified type Place 1 tablet (0.4 mg total) under the tongue every 5 (five) minutes as needed for chest pain 25 tablet 11 5 Active Active Problems Problem Noted Date Diagnosed Date History of ST elevation myocardial infarction ([place]) 02/08/2019 Essential hypertension 02/08/2019 Presence of stent in coronary artery 02/08/2019 Visit for wound check 01/20/2019 Resolved Problems Problem Noted Date Diagnosed Date Resolved Date NICM (nonischemic cardiomyopathy) 05/05/2019 06/09/2019 Immunizations Immunization Administration Dates Next Due Influenza, Quadrivalent, Spl it, Preservative Free, Intramuscular 12/30/2018 Pneumococcal Conjugate PCV 13 02/01/2019 Tdap 02/13/2019 Social History Tobacco Use Types Packs/Day Years Used Date Smoking Tobacco: Every Day Cigarettes 0 Smokeless Tobacco: Never Tobacco Cessation:Ready to Q uit: Not Asked; Counseling Given: Not Answered Alcohol Use Standard Drinks/Week Comments Never 0 (1 standard drink = 0.6 oz pur e alcohol) AUDIT-C Answer Date Recorded Frequency of Alcohol Consumption Never 02/08/2019 Average Number of Drinks Not on file 019 Frequency of Binge Drinking Not on file 01/21 Sex and Gender Information Value Date Recorded Sex Assigned at Not on file Legal Sex Male 5:12 AM CDT Gender Identity Not on file Sexual Orientation Not on file Last Filed Vital Signs Vital Sign Reading Time Taken Comments Blood Pressure 120/72 01/25/2024 1:58 PM DATA MODELER Pulse 66 01/25/2024 1:58 PM DATA MODELER Temperature 37 C (98.6 F) 09/14/2021 6:12 PM CDT Respiratory Rate 20 09/14/2021 6:12 PM CDT Oxygen Saturation 98% 01/25/2024 1:58 PM DATA MODELER Inhaled Oxygen Concentration - - Weight 86.2 kg (190 lb) 01/25/2024 1:58 PM DATA MODELER Height 180.3 cm (5' 11 ) 01/25/2024 1:58 PM DATA MODELER Body Mass Index 26.5 01/25/2024 1:58 PM DATA MODELER Plan of Treatment Not on file Procedures Procedure Name Priority Date/Time Associated Diagnosis Comments NM MPI SPECT (REST AND/OR STRESS) MULTIPLE STUDIES Schedule Routine, Read Routine (OP Routine) 04/18/2024 12:03 PM DATA MODELER History of ST elevation myocardial infarction (STEMI) Chest pain, unspecified type from Last 3 Months Results * NM MPI SPECT (Rest and/or Stress) Multiple Studies (04/18/2024 12:03 PM DATA MODELER) LV EF % CONS SCIMAGE Anatomical Region Laterality Modality Body N/A Nuclear Medicine 04/18/2024 10:3 5 AM DATA MODELER Narrative 04/19/2024 7:50 AM DATA MODELER [facility] [address] [facility] [address], [place] [address] [address] [facility] [address], [place] [address] P:[phone] P:[phone] MPI Imaging Report Patient Name: DAFNE MANZO : 1960 Study Date: 04/18/2024 10:35:41 AM Gender: M Tech: [facility] Location: [facility] Provider: SABRINA LEAL Height(Cm): 180.3 BSA: Weight(Kg): 86.2 BMI: 26.52 Order Provider: SABRINA LEAL - PHYSICIAN: Referring Physician: Dr. Garcia. HCG Physician: Benja May M.D.,F.A.C.C. Interpreting Physician: Atilio Moreira M.D. Stress Supervision: Atilio Moreira M.D. PROCEDURES: Pharmacologic SPECT Report: Myocardial perfusion imaging with Tc99M Sestamibi SPECT at rest and stress post regadenoson (Lexiscan) infusion. Treadmill stress converted to ambulatory Lexiscan stress at 2:20 due to fatigue, dyspnea and unable to reach target heart rate. - INDICATIONS: Hypertension, Shortness Of Breath, High Cholesterol, Smoker, I25.2 Old myocardial infarction, and R07.9 Chest pain, unspecified. FINDINGS: Procedural Findings: One day rest/stress was used. Tc99m Sestamibi injected IV at rest was 11.0 millicuries 32.9 millicuries of Tc99M Sestamibi injected IV during Lexiscan stress Lexiscan 0.4mg given IV over 10 seconds with low level exercise: 1.2 MPH Pharmacologic stress related symptoms and/or side effects during infusion include shortness of breath. Symptoms were resolved with rest and completion of Lexiscan protocol. Baseline heart rate was 54 BPM Maximum Heart Rate Achieved was: 111 BPM Baseline blood pressure was 108/72 mmHg Post Stress Blood Pressure was 132/86 mmHg Termination: Protocol complete. Resting ECG: Normal sinus rhythm. Cannot r/o anteroseptal infarct - age uncertain. LVH. Post ECG: No diagnostic ST changes. Arrhythmia: No arrhythmias seen. Perfusion Findings: Abnormal perfusion imaging - see below. Technical quality of study is excellent. Prone imaging was not performed. Left ventricle cavity size at rest is moderately enlarged. Left ventricle cavity size with stress is unchanged. A TID of 0.86 was automatically calculated. defect 1: Size is large. Severity is severe. Location of defect is in the mid anterior segment, mid anteroseptal segment, mid inferoseptal segment, mid anterolateral segment, apical anterior segment, apical septal segment, apical inferior segment, apical lateral segment and apex. Reversibility is not present, defect is fixed. Type of defect is infarction. LV Function: Left ventricular ejection fraction is 37 %. There is moderate LV dysfunction. PostStress LV Wall Motion: There is hypokinesis in the basal anterior segment, mid anterior segment, mid anteroseptal segment and mid inferoseptal segment. There is akinesis in the apical septal segment and apical lateral segment. There is dyskinesis in the apical anterior segment and apical segment. CONCLUSIONS: Left ventricular ejection fraction is 37 %. There is moderate LV dysfunction. There is hypokinesis in the basal anterior segment, mid anterior segment, mid anteroseptal segment and mid inferoseptal segment. There is akinesis in the apical septal segment and apical lateral segment. There is dyskinesis in the apical anterior segment and apical segment. Myocardial perfusion imaging is abnormal for a large severe LAD territory infarction without ischemia. Negative EKG portion of stress test. Very poor exercise capacity. Electronically Signed By: Jimmy Moreira MD 04/19/2024 7:49:39 AM DATA MODELER Electronically Signed By: Jimmy Moreira MD 04/19/2024 7:49:39 AM DATA MODELER Procedure Note Jimmy Moreira MD - 04/19/2024 [facility] [address] [facility] [address], [place] [address] [address] [facility] [address], [place] [address] P:[phone] P:[phone] MPI Imaging Report Patient Name: DAFNE MANZO : 1960 Study Date: 04/18/2024 10:35:41 AM Gender: M Tech: [facility] Location: [facility] Provider: SABRINA LEAL Height(Cm): 180.3 BSA: Weight(Kg): 86.2 BMI: 26.52 Order Provider: SABRINA LEAL - PHYSICIAN: Referring Physician: Dr. Garcia. HCG Physician: Benja May M.D.,F.A.C.C. Interpreting Physician: Atilio Moreira M.D. Stress Supervision: Atilio Moreira M.D. PROCEDURES: Pharmacologic SPECT Report: Myocardial perfusion imaging with Tc99M Sestamibi SPECT at rest and stresspost regadenoson (Lexiscan) infusion. Treadmill stress converted to ambulatoryLexiscan stress at 2:20 due to fatigue, dyspnea and unable to reach target heart rate. - INDICATIONS: Hypertension, Shortness Of Breath, High Cholesterol, Smoker, I25.2 Oldmyocardial infarction, and R07.9 Chest pain, unspecified. FINDINGS: Procedural Findings: One day rest/stress was used. Tc99m Sestamibi injected IV at rest was 11.0 millicuries 32.9 millicuries of Tc99M Sestamibi injected IV during Lexiscan stress Lexiscan 0.4mg given IV over 10 seconds with low level exercise: 1.2MPH Pharmacologic stress related symptoms and/or side effects duringinfusion include shortness of breath. Symptoms were resolved with rest and completion of Lexiscan protocol. Baseline heart rate was 54 BPM Maximum Heart Rate Achieved was: 111 BPM Baseline blood pressure was 108/72 mmHg Post Stress Blood Pressure was 132/86 mmHg Termination: Protocol complete. Resting ECG: Normal sinus rhythm. Cannot r/o anteroseptal infarct - age uncertain.LVH. Post ECG: No diagnostic ST changes. Arrhythmia: No arrhythmias seen. Perfusion Findings: Abnormal perfusion imaging - see below. Technical quality of study isexcellent. Prone imaging was not performed. Left ventricle cavity size at rest ismoderately enlarged. Left ventricle cavity size with stress is unchanged. A TID of 0.86 wasautomatically calculated. defect 1: Size is large. Severity is severe. Location of defect is in the midanterior segment, mid anteroseptal segment, mid inferoseptal segment, mid anterolateral segment,apical anterior segment, apical septal segment, apical inferior segment, apicallateral segment and apex. Reversibility is not present, defect is fixed. Type of defect isinfarction. LV Function: Left ventricular ejection fraction is 37 %. There is moderate LVdysfunction. PostStress LV Wall Motion: There is hypokinesis in the basal anterior segment, mid anterior segment,mid anteroseptal segment and mid inferoseptal segment. There is akinesis inthe apical septal segment and apical lateral segment. There is dyskinesis in the apicalanterior segment and apical segment. CONCLUSIONS: Left ventricular ejection fraction is 37 %. There is moderate LVdysfunction. There is hypokinesis in the basal anterior segment, mid anterior segment,mid anteroseptal segment and mid inferoseptal segment. There is akinesis inthe apical septal segment and apical lateral segment. There is dyskinesis in the apicalanterior segment and apical segment. Myocardial perfusion imaging is abnormal for a large severe LAD territoryinfarction without ischemia. Negative EKG portion of stress test. Very poor exercise capacity. Electronically Signed By: Jimmy Moreira MD 04/19/2024 7:49:39 AM DATA MODELER Electronically Signed By: Jimmy Moreira MD 04/19/2024 7:49:39 AM DATA MODELER Sabrina Leal PARKING METER ATTENDANT IMG NM PROCEDURES Final R esult from Last 3 Months Insurance [facility] [place] [address] [facility] BLUE ACCESS OOS Care Teams Finisher Operator Relationship Specialty Start Date End Date Dylon Garcia PA [facility] [place] [address] PCP - General Internal Medicine 01/25/24
--- OUTSIDE RECORDS SUMMARY | 2024-07-08 15:19 | XMS_ITS | Clinical Summary ---
Author Organization [facility] Address [address] [place] [address] Care Team Providers Care Reed Repairer Name Role Phone Gemma Gaytan MD Primary Care Provider [phone] Benja May MD Unavailable [phone] Allergies Active Allergy Reactions Criticality Noted Date Comments Bee Venom Anaphylaxis High 09/29/2019 Honey bees Tramadol Nausea and Vomiting, Nausea Only,GI Upset Low 12/30/2018 Medications albuterol sulfate HFA 108 (90 Base) MCG/ACT inhaler Inhale 2 puffs into the lungs every 6 (six) hours as needed. Active Fluticasone-Ume clidin-Vilant (TRELEGY ELLIPTA) 200-62.5-25 MCG/ACT AEROSOL POWDER, BREATH ACTIVATED Inhale 1 puff into the lungs daily. Active carvedilol (COREG) 12.5 MG tablet Take 1 tablet (12.5 mg total) by mouth 2 (two) times daily. 02/04/20 22 Active citalopram (CELEXA) 40 MG tablet Take 1 tablet (40 mg total) by mouth daily. Active EPINEPHrine 0.3 MG/0.3ML injection Inject 0.3 mLs (0.3 mg total) into the muscle as needed. Active losartan (COZAAR) 100 MG tablet Take 1 tablet (100 mg total) by mouth daily. Active naloxone (NARCAN) 4 MG/0.1ML nasal spray 1 spray by Nasal route as needed. Active nitroglycerin (NITROSTAT) 0.[address] 1 tablet (0.4 mg total) under the tongue every 5 (five) minutes as needed. Active gabapentin (NEURONTIN) 300 MG capsule Take 2 capsules (600 mg total) by mouth 3 (three) times daily. Active aspirin 81 MG chewable tablet Chew 1 tablet (81 mg total) by mouth daily. DO NOT RESTART UNTIL Thursday07/28/23 07/22/19 24 Active BRILINTA 60 MG tablet Take 1 tablet (60 mg total) by mouth daily. DO NOT RESTART UNTIL Thursday07/28/23 07/22/19 24 Active cyclobenzaprine (FLEXERIL) 10 MG tabletIndicatio ns:S/P cervical spinal fusion Take 1 tablet (10 mg total) by mouth 3 (three) times daily as needed for Muscle Spasms. 40 tablet 07/22/19 24 Active diazePAM (VALIUM) 5 MG tabletIndicatio ns:S/P cervical spinal fusion Take 1 tablet (5 mg total) by mouth every 6 (six) hours as needed (Spasms). 30 tablet 07/23/19 24 Active HYDROcodone-antoine taminophen (NORCO) 5-325 MG tabletIndicatio ns:Acute Pain < 7 Day Supply Take 1-2 tablets by mouth every 6 (six) hours as needed for Pain. Indications: Acute Pain < 7 Day Supply 50 tablet 07/28/19 24 Active dexamethasone (DECADRON) 4 MG tabletIndicatio ns:Dysphagia, unspecified type,S/P cervical spinal fusion Take 1 tablet (4 mg total) by mouth see administration instructions. 4 mg BID X 3 days, 2 mg BID x 3 days, 2 mg daily x 4 days 11 tablet 08/04/19 24 Active BONE STIMULATOR, DME,Indications :S/P cervical spinal fusion Wear 4 hours daily. Can break up into multiple sessions totaling 4 hours. 1 Device 08/04/19 24 Active Active Problems Problem Noted Date Diagnosed Date Dysphagia, unspecified type 08/04/2023 S/P cervical spinal fusion 08/04/2023 Cord compression myelopathy ([facility]) Anisocoria 08/04/2023 Cervical stenosis of spine 07/17/2023 Carpal tunnel syndrome on left 03/10/2023 Chronic back pain 12/16/2022 Thrombosed external hemorrhoids 05/29/[address] elevation myocardial infarction ([place]) 02/08/2019 Presence of stent in coronary artery 02/08/2019 Allergic rhinitis 03/23/2018 Anxiety 03/23/2018 Complex renal cyst 03/23/2018 Depressive disorder 03/23/2018 Essential hypertension 03/23/2018 Hypercholesterolemia 03/23/2018 Obstructive sleep apnea syndrome 03/23/2018 Prediabetes 03/23/2018 Spinal stenosis 03/23/2018 Vitamin D deficiency 03/23/2018 Family History Medical History Relation Comments Cancer Brother Relation Status Comments Brother Social History Tobacco Use Types Packs/Day Years [...] from your doctor or pharmacy? Never 07/17/2023 [facility] Utilities Answer Date Recorded In the past 12 months has e [employer], oil, or water [employer] threatened to shut off services in your [...] week 07/17/2023 How often do you attend [facility] or sabianism services? Never 07/17/2023 Do you belong to any clubs o r organizations such as restoration groups, unions, fraternal or athletic groups, or [...] Recorded Patient Health Questionnaire-2 Score 0 07/17/2023 [facility] - Occupational [...] any time in the past 12 m [facility], were you homeless or living in a retirement (including now)? No 07/17/2023 Sex and Gender Information Value Date Recorded Sex Assigned at Not on file Legal Sex Male 8:04 PM CDT Gender Identity Not on file Sexual Orientation Not on file Last Filed Vital Signs Vital Sign Reading Time Taken Comments Blood Pressure 160/94 11/30/2023 10:45 AM CDT Pulse 62 11/30/2023 10:45 AM CDT Temperature 36.4 C (97.6 F) 11/30/2023 10:45 AM CDT Respiratory Rate 16 11/30/2023 10:45 AM CDT Oxygen Saturation 99% 11/30/2023 10:45 AM CDT Inhaled Oxygen Concentration - - Weight 87.1 kg (192 lb) 11/30/2023 10:45 AM CDT Height 180.3 cm (5' 11 ) 11/30/2023 10:45 AM CDT Body Mass Index 26.78 11/30/2023 10:45 AM CDT Plan of Treatment Health Maintenance Due Date Last Done Comments Colorectal Cancer Screening Colonoscopy (10 Years) 1960 Annual Physical 1965 Hepatitis C 1980 Zoster Vaccines (1 of 2) 2012 Lung Cancer Screening 06/26/2022 06/26/2021 COVID-19 Vaccine ( - 2023-2 5 season) 2023 PHQ-2 (Physician Manly) 03/23/2024 07/17/2023 Pneumococcal Vaccine: 50+ Years (3 of 3 - PCV20 or PCV21) 03/27/2028 03/27/2023, 02/01/2019 DTaP, Tdap and Td Vaccines ( 3 - Td or Tdap) 02/13/2029 02/13/2019, 05/01/2016 RSV Immunization or 60+ Years (1 - 1-dose 75+ series) 2037 Meningococcal B Vaccine Aged Out No l onger eligible based on patient's age to complete this topic Meningococcal Vaccine Aged Out No emerita estefany eligible based on patient's age to complete this topic RSV Immunizations Under 20 Months Aged Out No longer eligible b ased on patient's age to complete this topic Goals Goal Patient Goal Type Associated Problems Recent Progress Patient-Stated? Author Family - family caregiver with be involved in care transitions and discharge planning Lifestyle No Mal Alva, RN Medical Devices Implanted Type Area Nurse Obgyn Device Identifier Shelf Expiration Date Model / Serial / Lot Graft Infuse Bone Xsmall - [id number] Implanted:Qty: 1 on 07/20/2023 by Marcell Arnaa MD at [facility] N/A: Spine Cervical [employer] [id number] 08/21/2024 [id number] / / [id number] Putty Reliance Matrix Dbm/Dbf Bone l - [id number] Implanted:Qty: 1 on 07/20/2023 by Marcell Arana MD at [facility] Bone N/A: Spine Cervical [employer] [id number] 06/18/2025 [id number] / [id number] / Medtronic Endoskeleton Tc Interbody System Implanted:Qty: 1 on 07/20/2023 by Marcell Arana MD at [facility] Cage N/A: Spine Cervical [employer] [id number] 04/30/2028 [id number] -N / / [id number] Description:C4-C5 Medtronic Endoskeleton Tc Interbody System Implanted:Qty: 1 on 07/20/2023 by Marcell Arana MD at [facility] Cage N/A: Spine Cervical [employer] [id number] 04/30/2028 [id number] -N / / [id number] Description:C3-C4 80 Mm Elite Plate Implanted:Qty: 1 on 07/20/2023 by Marcell Arana MD at [facility] Plate N/A: Spine Cervical [employer] . [id number] / / . 4.0 X 16 Mm Screws Implanted:Qty: 10 on 07/20/2023 by Marcell Arana MD at [facility] Screw N/A: Spine Cervical [employer] . [id number] / / . [employer] Mmn Endoskeleton Tc Interbody System Implanted:Qty: 1 on 07/20/2023 by Marcell Arana MD at [facility] Spacer N/A: Spine Cervical [id number] 03/26/2028 / / [id number] Description:C6-C7 [employer] Mmn Endoskeleton Tc Interbody System Implanted:Qty: 1 on 07/20/2023 by Marcell Arana MD at [facility] Spacer N/A: Spine Cervical [employer] [id number] 04/23/2028 [id number] -N / / [id number] Description:C5-C6 Explanted Type Area Nurse Obgyn Device Identifier Shelf Expiration Date Model / Serial / Lot Distration Pin 12mm - [id number] Explanted:Qty: 1 on 07/20/2023 by Marcell Arana MD at [facility] Pin N/A: Spine Cervical [employer] DP-12-TB / / Distration Pin 12mm - [id number] Explanted:Qty: 1 on 07/20/2023 by Marcell Arana MD at [facility] Pin N/A: Spine Cervical [employer] DP-12-TB / / Plate Holding Pin Explanted:Qty: 3 on 07/20/2023 by Marcell Arana MD at [facility] Pin N/A: Spine Cervical [employer] . [id number] / / . Insurance [place] [address] Advance Directives * Full Code (Latest Code Status on File) Date Activated Date Inactivated Comments 07/20/2023 6:45 PM 07/22/2023 2:50 PM * Full Code Date Activated Date Inactivated Comments 07/17/2023 5:24 PM 07/20/2023 6:45 PM Care Teams Reed Repairer Relationship Specialty Start Date End Date Gemma Gaytan MD [facility] [place] [id number] PCP - General FAMILY PRACTICE 12/19/22 Benja May MD [address] [facility] [address] [place] [address] [address] [place] [address] CARDIOVASCULAR DISEASE 03/10/23
--- OUTSIDE RECORDS SUMMARY | 2024-07-08 15:19 | XMS_ITS | Clinical Summary ---
Author Organization [facility] Address [address] [place] [address] Care Team Providers Care Pony Worker Name Role Phone Dylon Garcia Primary Care Provider + Allergies Active Allergy Reactions Criticality Noted Date Comments Tramadol Nausea only Low 12/30/2018 Venom-Honey Bee Anaphylaxis High 09/29/2019 Honey bees Medications VITAMIN D2 50,000 unit capsule once a week 9 Active SPIRIVA WITH HANDIHALER 18 mcg per inhalation capsule 9 Active citalopram (CeleXA) 10 mg tablet [...] 20 mg tabletIndication s:Coronary artery disease involving lumbee coronary artery of lumbee heart without angina pectoris Take 1 tablet [...] Resolved Date NICM (nonischemic cardiomyopathy) 05/05/2019 06/09/2019 Encounters Date Type Department Care Team Description 05/04/2024 Telephone [facility] Cardiology [address] [place] [address] [place] [phone] Sabrina Leal NP 04/19/2024 Telephone [facility] Cardiology [address] [place] [address] [place] [phone] Sabrina Leal NP 04/18/2024 10:15 AM RESTORATION TECHNICIAN Ancillary Procedure [facility] Cardiology [address] [place] [address] [place] [phone] elevation myocardial infarction (STEMI); Chest pain, unspecified type 04/18/2024 Telephone [facility] Cardiology [address] [place] [address] [place] [phone] Sabrina Leal NP 04/11/2024 Telephone [facility] Cardiology [address] [place] [address] Benja May MD Chest Pain from Last 3 Months Immunizations Immunization Administration Dates Next Due Influenza, Quadrivalent, Spl it, Preservative Free, Intramuscular 12/30/2018 Pneumococcal Conjugate PCV 13 02/01/2019 Tdap 02/13/2019 Surgical History Surgery Date Site/Laterality Comments PROSTATE SURGERY 05/21/2018 - 06/20/2018 HERNIA REPAIR umbilical CORONARY ARTERY BYPASS GRAFT CORONARY ANGIOPLASTY Medical History Medical History Date Comments Hypertension Hyperlipidemia COPD (chronic obstructive pulmonary disease) (HC C) Rupture, spleen Family History Medical History Relation Name Comments Cancer Brother Cancer Father Hypertension Father Cancer Mother Cancer Sister Relation Name Status Comments Brother Father Mother Sister Social History Tobacco Use Types Packs/Day Years [...] on file Sexual Orientation Not on file Obstetrics History Last Filed Vital Signs Vital Sign Reading Time Taken Comments Blood Pressure 120/72 01/25/2024 1:58 PM RESTORATION TECHNICIAN Pulse 66 01/25/2024 1:58 PM RESTORATION TECHNICIAN Temperature 37 C (98.6 F) 09/14/2021 6:12 PM CDT Respiratory Rate 20 09/14/2021 6:12 PM CDT Oxygen Saturation 98% 01/25/2024 1:58 PM RESTORATION TECHNICIAN Inhaled Oxygen Concentration - - Weight 86.2 kg (190 lb) 01/25/2024 1:58 PM RESTORATION TECHNICIAN Height 180.3 cm (5' 11 ) 01/25/2024 1:58 PM RESTORATION TECHNICIAN Body Mass Index 26.5 01/25/2024 1:58 PM RESTORATION TECHNICIAN Plan of Treatment Health Maintenance Due Date Last Done Comments Colon Cancer Screening-Colonoscopy 1960 Depression Screening 1960 Hepatitis C Screening 1960 Prostate Cancer Screening-PSA 1962 Hepatitis B Screening 1980 Regular Well Visit/Exam 18-64 1980 Pneumococcal vaccine <65 (2 of 2 - PPSV23) 05/22/2023 03/27/2023, 02/01/2019 Zoster Vaccine (2 of 2) 03/11/2024 01/15/2024 DTaP/Tdap/Td Vaccine (3 - Td or Tdap) 02/13/2029 02/13/2019, 05/01/2016 Influenza Vaccine Completed 01/15/2024, , 01/06/2022, Additional history exists Procedures Procedure Name Priority Date/Time Associated Diagnosis Comments NM MPI SPECT (REST AND/OR STRESS) MULTIPLE STUDIES Schedule Routine, Read Routine (OP Routine) 04/18/2024 12:03 PM RESTORATION TECHNICIAN History of ST elevation myocardial infarction (STEMI) Chest pain, unspecified type from Last 3 Months Results * NM MPI SPECT (Rest and/or Stress) Multiple Studies (04/18/2024 12:03 PM RESTORATION TECHNICIAN) LV EF % CONS SCIMAGE Anatomical Region Laterality Modality Body N/A Nuclear Medicine 04/18/2024 10:3 5 AM RESTORATION TECHNICIAN Narrative 04/19/2024 7:50 AM RESTORATION TECHNICIAN [facility] Medical [facility] Cardiology [address] [facility] [address] [id number] [address] [facility] [address], [place] [address] P:[phone] P:[phone] MPI Imaging Report Patient Name: DAFNE MANZO : 1960 Study Date: 04/18/2024 10:35:41 AM Gender: M Tech: DONAVON LAYTON Location: [place] Ref Provider: SABRINA LEAL Height(Cm): 180.3 BSA: Weight(Kg): 86.2 BMI: 26.52 Order Provider: SABRIAN LEAL - PHYSICIAN: Referring Physician: Dr. Garcia. [...] By: Jimmy Moreira MD 04/19/2024 7:49:39 AM RESTORATION TECHNICIAN Electronically Signed By: Jimmy Moreira MD 04/19/2024 7:49:39 AM RESTORATION TECHNICIAN Procedure Note Jimmy Moreira MD - 04/19/2024 [facility] Medical [facility] Cardiology [address] [facility] [address] [address] [address] [facility] [address], [place] [address] P:[phone] P:[phone] MPI Imaging Report Patient Name: DAFNE MANZO : 1960 Study Date: 04/18/2024 10:35:41 AM Gender: M Tech: DONAVON LAYTON Location: [facility] Provider: SABRINA LEAL Height(Cm): 180.3 BSA: Weight(Kg): [...] By: Jimmy Moreira MD 04/19/2024 7:49:39 AM RESTORATION TECHNICIAN Electronically Signed By: Jimmy Moreira MD 04/19/2024 7:49:39 AM RESTORATION TECHNICIAN Sabrina Leal NP IMG NM PROCEDURES Final R esult from Last [address] [place] [address] [facility] PLUS [facility] PLUS BLUE ACCESS OOS Care Teams Pony Worker Relationship Specialty Start Date End Date Dylon Garcia PA [address] [place] [address] [place] [address] PCP - General Internal Medicine 01/25/24
--- OUTSIDE RECORDS SUMMARY | 2024-07-08 15:19 | XMS_ITS | Encounter Summary ---
Author Organization [facility] Address [address] [place] [address] Care Team Providers Care In Home Nanny Name Role Phone Gemma Gaytan MD Primary Care Provider [phone] Benja May MD Unavailable [phone] Encounter Details Date Type Department Care Team (Late st Contact Info) Description 11/26/2023 [employer] Message Enc [facility] Medical [facility] Multispecialty Care - [facility] [address] [facility], [address] [place] [phone] Marcell Arana MD [address] [place] [address] Upcoming appointment Social History Tobacco Use Types Packs/Day Years [...] from your doctor or pharmacy? Never 07/17/2023 [facility] Utilities Answer Date Recorded In the past 12 months has e electric, gas, oil, or water company [...] How often do you attend chur or baptism services? Never 07/17/2023 Do you belong to any clubs o r organizations such as catholic groups, unions, fraternal or athletic groups, or [...] Recorded Patient Health Questionnaire-2 Score 0 07/17/2023 [facility] - Occupational [...] any time in the past 12 m [facility], were you homeless or living in a chcf (including now)? No 07/17/2023 Sex and Gender [...] on filedocumented in this encounter Care Teams In Home Nanny Relationship Specialty Start Date End Date Gemma Gaytan MD [facility] [place] [address] PCP - General FAMILY PRACTICE 12/19/22 Benja May MD [address] [facility] [address] [place], [place] [phone] CARDIOVASCULAR DISEASE 03/10/23 documented as of this encounter
--- OUTSIDE RECORDS SUMMARY | 2024-07-08 15:19 | XMS_ITS | Encounter Summary ---
Author Organization [facility] Address [address] [place] [address] Care Team Providers Care Hand Bobbin Cleaner Name Role Phone Gemma Gaytan MD Primary Care Provider [phone] Benja May MD Unavailable [phone] Encounter Details Date Type Department Care Team (Late st Contact Info) Description 10/26/2023 [employer] Message Enc [facility] Medical Group Multispecialty Care - [facility] [address] [facility], [address] [place] [phone] Marcell Arana MD [address] [place] [address] [place] Social History Tobacco Use Types Packs/Day Years [...] from your doctor or pharmacy? Never 07/17/2023 [facility] Utilities Answer Date Recorded In the [...] How often do you attend chur or rastafari services? Never 07/17/2023 Do you belong to any clubs o r organizations such as moravian groups, unions, fraternal or athletic groups, or [...] Recorded Patient Health Questionnaire-2 Score 0 07/17/2023 [facility] - Occupational Stress [...] any time in the past 12 m [facility], were you homeless or living in a nursing home (including now)? No 07/17/2023 Sex and Gender [...] Progress Notes * Leeann Cardenas MA - 10/27/2023 7:41 AM CDT Forwarding to AA documented in [...] on filedocumented in this encounter Care Teams Hand Bobbin Cleaner Relationship Specialty Start Date End Date Gemma Gaytan MD [facility] [place] [phone] PCP - General FAMILY PRACTICE 12/19/22 Benja May MD [address] [place], [place] [phone] CARDIOVASCULAR DISEASE 03/10/23 documented as of this encounter
--- NOTE | 2024-07-08 16:43 | ED.ABDPAIN ---
HPI - Abdominal Pain General Chief Complaint: Abdominal Pain <Bay Reeves PA-C - Last Filed: 07/08/24 16:44> Stated Complaint: hernia flare <Bay Reeves PA-C - Last Filed: 07/08/24 16:44> Time Seen by Provider: 07/08/24 17:12 <Bay Reeves PA-C - Last Filed: 07/08/24 16:44> Focused HPI: GENERAL: Well-appearing, well-nourished, and in no acute distress. HEAD: Normocephalic, atraumatic. CHEST: Clear to auscultation. No respiratory distress. HEART: Regular rate and rhythm. ABD: Left inguinal hernia present. Unable to reduce. No overlying skin changes. Tender to palpation in the left lower quadrant. NEURO: Alert and oriented x3. Patient screened in triage and initial orders placed. Additional care and disposition to be based upon diagnostic testing and treatment. <Bay Reeves PA-C - Last Filed: 07/08/24 16:44> Source: patient <Bay Reeves PA-C - Last Filed: 07/08/24 16:44> Mode of arrival: ambulatory <Bay Reeves PA-C - Last Filed: 07/08/24 16:44> Limitations: no limitations <Bay Reeves PA-C - Last Filed: 07/08/24 16:44> History of Present Illness HPI narrative: I agree with the above HPI <Jono Wilkinson MD - Last Filed: 07/08/24 20:39> Related Data Home Medications: Home Medications ?Medication ?Instructions ?Recorded ?Confirmed ?Last Taken ?Type acetaminophen 500 mg capsule 500 mg PO Q6H PRN Pain (Scale 03/09/19 06/27/24 Unknown History Score 1-3) aspirin 81 mg tablet,delayed 81 mg PO DAILY 03/09/19 06/27/24 10/06/19 History release (Adult Low Dose Aspirin) losartan 50 mg tablet 100 mg PO DAILY 03/09/19 06/27/24 10/06/19 History nitroglycerin 0.4 mg sublingual 0.4 mg sublingual Q5M PRN Chest 03/09/19 06/27/24 Unknown History tablet Pain rosuvastatin 20 mg tablet 20 mg PO DAILY 03/09/19 06/27/24 10/06/19 History ticagrelor 90 mg tablet 90 mg PO Q12H 03/09/19 06/27/24 10/06/19 09:00 History tiotropium bromide 18 mcg capsule 1 cap inhalation DAILY 03/09/19 06/27/24 10/06/19 History with inhalation device albuterol sulfate 90 mcg/actuation 2 puff inhalation Q4H PRN 10/06/19 06/27/24 10/06/19 10:00 History aerosol inhaler Shortness Of Breath Or Wheezing carvedilol 6.25 mg tablet 12.5 mg PO BID 10/06/19 06/27/24 10/06/19 09:30 History citalopram 20 mg tablet 40 mg PO DAILY 11/13/21 06/27/24 Unknown History <Bay Reeves PA-C - Last Filed: 07/08/24 16:44> Allergies/Adverse Reactions: Allergies Allergy/AdvReac Type Severity Reaction Status Date / Time bee venom protein (honey bee) Allergy Severe Anaphylaxis Verified 07/08/24 15:18 tramadol Allergy Unknown Nausea and Verified 07/08/24 15:18 Vomiting Honey Bee Allergy Severe Anaphylactic Uncoded 07/08/24 15:18 Shock <Bay Reeves PA-C - Last Filed: 07/08/24 16:44> Review of Systems Review of Systems: All systems reviewed & are unremarkable except as noted in HPI and below <Jono Wilkinson MD - Last Filed: 07/08/24 20:39> [facility] Past Medical History Medical History: Medical History BPH (benign prostatic hyperplasia) CAD (coronary artery disease) History of heroin use Prediabetes Spinal stenosis Diverticulitis Allergic rhinitis Bradycardia Essential hypertension Eustachian tube disorder Obstructive sleep apnea Intolerant of a CPAP machine Depression Anxiety Hypokalemia Hypercholesterolemia <Bay Reeves PA-C - Last Filed: 07/08/24 16:44> Surgical History Surgical History: Surgical History H/O umbilical hernia repair Status post surgical removal of neoplasm of skin 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 The patient Lexie Dick smokes marijuana. The patient used to smoke 2 packs of cigarettes a day but now is down to 3/4 of a pack a cigarettes a day. His 2 children and he lives with his and their son and the son's 3 children. He denies any alcohol use. He used heroin in the past has been clean for at least 2 years. He desires to have his is a designated durable power senior trial attorney for healthcare and he desires to be full code. Smoking packs per day: 1 Smoking cigarettes per day: 20.0 Years smoked: 42 Smoking pack-years: 42.00 Smoking status: Heavy tobacco smoker Tobacco type: cigarettes Alcohol intake: never Substance use: current Substance use type: marijuana and opiates Other substance usage details: former opiate addiction Do You Feel Safe in your Home?: Yes Lack of Transportation: No Lack of Food: Never True Current Housing: I Have Housing Concerned About Future Housing: No Difficulty Paying Gas/Electric Bills: No Difficulty Paying for Meds: No Currently Unemployed: No Education: High School Diploma/GED Difficulty w/ Childcare or Family Care: No Gender identity (if verbalized by the patient): Male Sexual Orientation (if Verbalized by the Patient): Straight or Heterosexual Spiritual care concerns: No <MARIO Selby Last Filed: 07/08/24 16:44> Exam Narrative: APPEARANCE: Well appearing, no pain, no distress, well-nourished. HEAD: normocephalic, atraumatic. EYES: PERRLA/EOMI, conjunctivae clear. NOSE: Normal no drainage EARS:TMS clear with good light reflex. THROAT: Pharynx clear, no exudate. NECK: Supple. No adenopathy, no masses. RESPIRATORY: Airway patent, respirations nonlabored. Clear to auscultation bilaterally, no rales, rhonchi, wheezing. CARDIOVASCULAR: Regular rate and rhythm without murmurs rubs or gallops. ABDOMINAL: Right-sided inguinal hernia that was easily reduced MUSCULOSKELETAL: Moves all extremities. Strength/ROM intact, No edema, No calf tenderness. NEURO: Alert. Cranial nerves II through XII intact. Good gait. Good coordination SKIN: Warm, dry. Normal Color <Jono Wilkinson MD - Last Filed: 07/08/24 20:39> Course Vital Signs Vital signs: Vital Signs Temperature 98.2 F 07/08/24 15:23 Pulse Rate 62 07/08/24 15:23 Respiratory Rate 16 07/08/24 15:23 Blood Pressure 94/58 L 07/08/24 15:23 Pulse Oximetry 97 07/08/24 15:23 Temperature 98.2 F 07/08/24 15:23 Pulse Rate 59 L 07/08/24 19:39 Respiratory Rate 17 07/08/24 19:39 Blood Pressure 117/77 07/08/24 19:39 Pulse Oximetry 97 07/08/24 19:39 <Bay Reeves PA-C - Last Filed: 07/08/24 16:44> Vital Signs Temperature 98.2 F 07/08/24 15:23 Pulse Rate 62 07/08/24 15:23 Respiratory Rate 16 07/08/24 15:23 Blood Pressure 94/58 L 07/08/24 15:23 Pulse Oximetry 97 07/08/24 15:23 Temperature 98.2 F 07/08/24 15:23 Pulse Rate 59 L 07/08/24 19:39 Respiratory Rate 17 07/08/24 19:39 Blood Pressure 117/77 07/08/24 19:39 Pulse Oximetry 97 07/08/24 19:39 <Jono Wilkinson MD - Last Filed: 07/08/24 20:39> MDM - Abdominal Pain MDM Narrative Medical decision making narrative: 64-year-old male present to the emergency department for evaluation for left lower abdominal pain. Patient does have a known inguinal hernia. Patient does currently afebrile with no leukocytosis hemoglobin 11.8. Patient has no acute abnormalities on his CMP and has a normal lactic acid normal lipase. UA is negative for infection. CT scan does show a left-sided fat completely well hernia this was easily reduced. Patient was provided medication for pain control emergency department along with a L of lactated Ringer's. Patient will be provided outpatient follow-up with surgery. Patient family updated the results of the workup all questions concerns were addressed. <Jono Wilkinson MD - Last Filed: 07/08/24 20:39> Differential Diagnosis Differential diagnosis: Likely acute appendicitis, calculus of kidney, constipation, diverticulitis, gastroenteritis, pancreatitis and small bowel obstruction <Jono Wilkinson MD - Last Filed: 07/08/24 20:39> Lab Data Attestation: I reviewed the patient's lab results. <Jono Wilkinson MD - Last Filed: 07/08/24 20:39> Result diagrams: 07/08/24 17:25 07/08/24 17:25 <Bay Reeves PA-C - Last Filed: 07/08/24 16:44> Labs: Lab Results 07/08/24 Range/Units 17:25 WBC 7.5 (4.5-10.0) K/mm3 RBC 4.08 L (4.6-6.20) M/mm3 Hgb 11.8 L (14.0-18.0) g/dL Hct 36.2 L (42.0-52.0) % MCV 88.7 (80-100) fl MCH 28.9 (26-34) pg MCHC 32.6 (32-36) g/dl RDW 12.7 (11.5-14.5) % Plt Count 198 (150-375) k/mm3 MPV 9.1 (7.4-10.4) fl Immature Gran % (Auto) 0.4 (0-0.5) % Neut % (Auto) 61.2 (45.5-73.1) % Lymph % (Auto) 27.4 (18.3-44.2) % [place] % (Auto) 8.7 H (2.6-8.5) % Eos % (Auto) 1.6 (0-4.4) % Baso % (Auto) 0.7 (0.2-1.2) % Lymph # (Auto) 2.06 (0.9-3.2) K/mm3 [place] # (Auto) 0.7 H (0.1-0.6) K/mm3 Eos # (Auto) 0.1 (0-0.3) K/mm3 Baso # (Auto) 0.1 (0.0-0.1) K/mm3 Abs Immat Gran (auto) 0.03 (0.00-0.031) K/mm3 Absolute Neuts (auto) 4.6 (1.3-6.7) K/mm3 Absolute Nucleated RBC 0.000 (0.0-0.012) K/mm3 Nucleated RBC % 0.0 (0.0-0.2) % Sodium 134 L (137-145) mmol/L Potassium 3.6 (3.4-5.0) mmol/L Chloride 100 (98-107) mmol/L Carbon Dioxide 29 (22-30) mmol/L Anion Gap 5 (4-12) mmol/L BUN 10 D (9-20) mg/dL Creatinine 0.76 (0.7-1.3) mg/dL Estim Creat Clear Calc 93 ml/min Estimated GFR > 60 (59 - ) Glucose 106 (65-110) mg/dL Lactic Acid 0.6 L (0.7-2.0) mmol/L Calcium 8.8 (8.4-10.2) mg/dL Total Bilirubin 0.9 (0.2-1.3) mg/dL AST 72 H (17-59) U/L ALT 31 (6-50) U/L Alkaline Phosphatase 90 (38-126) U/L Total Protein 7.0 (6.3-8.2) g/dL Albumin 3.9 (3.5-5.1) g/dL Lipase 14 L (23-300) U/L Urine Color Yellow (Yellow) Urine Appearance Clear (Clear) Urine pH 6.0 (5.0-9.0) Ur Specific [place] 1.009 (1.001-1.035) Urine Protein Negative (Negative) mg/dL Urine Glucose (UA) Negative (Negative) mg/dL Urine Ketones Negative (Negative) mg/dL Ur Blood (Man) Negative (Negative) Urine Nitrate Negative (Negative) Urine Bilirubin Negative (Negative) Urine Urobilinogen 1.0 (<2.0) mg/dL Leukocyte Esterase Rfl Trace H (Negative) TRI/UL Urine RBC 0-2 (0-2) /hpf Urine WBC 0-5 (0-3) /hpf Ur Squamous Epith Cells None seen (Few) /hpf Urine Bacteria None seen /hpf Urine Casts 0-2 <Bay Reeves PA-C - Last Filed: 07/08/24 16:44> Lab Results 07/08/24 Range/Units 17:25 WBC 7.5 (4.5-10.0) K/mm3 RBC 4.08 L (4.6-6.20) M/mm3 Hgb 11.8 L (14.0-18.0) g/dL Hct 36.2 L (42.0-52.0) % MCV 88.7 (80-100) fl MCH 28.9 (26-34) pg MCHC 32.6 (32-36) g/dl RDW 12.7 (11.5-14.5) % Plt Count 198 (150-375) k/mm3 MPV 9.1 (7.4-10.4) fl Immature Gran % (Auto) 0.4 (0-0.5) % Neut % (Auto) 61.2 (45.5-73.1) % Lymph % (Auto) 27.4 (18.3-44.2) % [place] % (Auto) 8.7 H (2.6-8.5) % Eos % (Auto) 1.6 (0-4.4) % Baso % (Auto) 0.7 (0.2-1.2) % Lymph # (Auto) 2.06 (0.9-3.2) K/mm3 [place] # (Auto) 0.7 H (0.1-0.6) K/mm3 Eos # (Auto) 0.1 (0-0.3) K/mm3 Baso # (Auto) 0.1 (0.0-0.1) K/mm3 Abs Immat Gran (auto) 0.03 (0.00-0.031) K/mm3 Absolute Neuts (auto) 4.6 (1.3-6.7) K/mm3 Absolute Nucleated RBC 0.000 (0.0-0.012) K/mm3 Nucleated RBC % 0.0 (0.0-0.2) % Sodium 134 L (137-145) mmol/L Potassium 3.6 (3.4-5.0) mmol/L Chloride 100 (98-107) mmol/L Carbon Dioxide 29 (22-30) mmol/L Anion Gap 5 (4-12) mmol/L BUN 10 D (9-20) mg/dL Creatinine 0.76 (0.7-1.3) mg/dL Estim Creat Clear Calc 93 ml/min Estimated GFR > 60 (59 - ) Glucose 106 (65-110) mg/dL Lactic Acid 0.6 L (0.7-2.0) mmol/L Calcium 8.8 (8.4-10.2) mg/dL Total Bilirubin 0.9 (0.2-1.3) mg/dL AST 72 H (17-59) U/L ALT 31 (6-50) U/L Alkaline Phosphatase 90 (38-126) U/L Total Protein 7.0 (6.3-8.2) g/dL Albumin 3.9 (3.5-5.1) g/dL Lipase 14 L (23-300) U/L Urine Color Yellow (Yellow) Urine Appearance Clear (Clear) Urine pH 6.0 (5.0-9.0) Ur Specific [place] 1.009 (1.001-1.035) Urine Protein Negative (Negative) mg/dL Urine Glucose (UA) Negative (Negative) mg/dL Urine Ketones Negative (Negative) mg/dL Ur Blood (Man) Negative (Negative) Urine Nitrate Negative (Negative) Urine Bilirubin Negative (Negative) Urine Urobilinogen 1.0 (<2.0) mg/dL Leukocyte Esterase Rfl Trace H (Negative) TRI/UL Urine RBC 0-2 (0-2) /hpf Urine WBC 0-5 (0-3) /hpf Ur Squamous Epith Cells None seen (Few) /hpf Urine Bacteria None seen /hpf Urine Casts 0-2 <Jono Wilkinson MD - Last Filed: 07/08/24 20:39> Imaging Data Radiologist's impression: ITS Impressions Abdomen/Pelvis CT 07/08/24 17:57 IMPRESSION: 1. No evidence of appendicitis, diverticulitis or intestinal obstruction. 2. Left kidney tiny stone. 3. Bilateral kidney cysts. 4. Atrophic pancreas. 5. Constipation. 6. Thickened wall of the urinary bladder. Evaluation for cystitis advised. 7. Focal air containing bone lesion seen in the left iliac bone. <Bay Reeves PA-C - Last Filed: 07/08/24 16:44> ITS Impressions Abdomen/Pelvis CT 07/08/24 17:57 IMPRESSION: 1. No evidence of appendicitis, diverticulitis or intestinal obstruction. 2. Left kidney tiny stone. 3. Bilateral kidney cysts. 4. Atrophic pancreas. 5. Constipation. 6. Thickened wall of the urinary bladder. Evaluation for cystitis advised. 7. Focal air containing bone lesion seen in the left iliac bone. <Jono Wilkinson MD - Last Filed: 07/08/24 20:39> Discharge Plan Discharge Clinical Impression: Hernia, inguinal, left <Bay Reeves PA-C - Last Filed: 07/08/24 16:44> Patient Disposition: Home <Bay Reeves PA-C - Last Filed: 07/08/24 16:44> Condition: Stable <Bay Reeves PA-C - Last Filed: 07/08/24 16:44> Instructions: Antibiotic Form, Inguinal Hernia (ED) <Bay Reeves PA-C - Last Filed: 07/08/24 16:44> Additional Instructions: Avoid heavy lifting. Stool softeners to help prevent constipation. Medication for pain control as directed. Hernia belt as needed. Have close follow-up with surgery. If you have any worsening symptoms then please call or return to the emergency department. <Bay Reeves PA-C - Last Filed: 07/08/24 16:44> Patient Language: Australian <Bay Reeves PA-C - Last Filed: 07/08/24 16:44> Prescriptions: New hydrocodone-acetaminophen 5-325 mg tablet 1 tablet PO Q12H PRN (Reason: pain) Qty: 14 0RF No Action acetaminophen 500 mg capsule 500 mg PO Q6H PRN (Reason: Pain (Scale Score 1-3)) aspirin [Adult Low Dose Aspirin] 81 mg tablet,delayed release (DR/EC) 81 mg PO DAILY losartan 50 mg tablet 100 mg PO DAILY nitroglycerin 0.4 mg tablet, sublingual 0.4 mg SUBLINGUAL Q5M PRN (Reason: Chest Pain) rosuvastatin 20 mg tablet 20 mg PO DAILY ticagrelor 90 mg tablet 90 mg PO Q12H tiotropium bromide 18 mcg capsule, w/inhalation device 1 cap INHALATION DAILY citalopram 20 mg tablet 40 mg PO DAILY carvedilol 6.25 mg tablet 12.5 mg PO BID albuterol sulfate 90 mcg/actuation HFA aerosol inhaler 2 puff INHALATION Q4H PRN (Reason: Shortness Of Breath Or Wheezing) isosorbide mononitrate 60 mg Tablet Extended Release 24 Hr 60 mg PO QAM Qty: 30 3RF omeprazole 20 mg capsule,delayed release(DR/EC) 20 mg PO DAILY 30 Days Qty: 30 0RF isosorbide mononitrate 30 mg Tablet Extended Release 24 Hr 30 mg PO QAM Qty: 30 3RF Rx Instructions: Take with 60 mg Imdur to equal 90 mg daily. <Bay Reeves PA-C - Last Filed: 07/08/24 16:44> Follow-up/Referrals: Jose,RAVI Flores [Primary Care Provider] - Kevin Nieto DO [Physician] - <Bay Reeves PA-C - Last Filed: 07/08/24 16:44> Stand Alone Forms: Work/School Release IP <Bay Reeves PA-C - Last Filed: 07/08/24 16:44>
[2024-07-08 17:34] LABS: Basophils Absolute Auto 0.1 K/mm3 (0.0-0.1); Basophils Percent Auto 0.7 % (0.2-1.2); Eosinophils Absolute Auto 0.1 K/mm3 (0-0.3); Eosinophils Percent Auto 1.6 % (0-4.4); Hematocrit 36.2 % (42.0-52.0); Hemoglobin 11.8 g/dL (14.0-18.0); Immature Granulocyte Absolute 0.03 K/mm3 (0.00-0.031); Immature Granulocyte Percent A 0.4 % (0-0.5); Lymphocytes Absolute Auto 2.06 K/mm3 (0.9-3.2); Lymphocytes Percent Auto 27.4 % (18.3-44.2); Mean Corpuscular HGB Conc 32.6 g/dl (32-36); Mean Corpuscular Hemoglobin 28.9 pg (26-34); Mean Corpuscular Volume 88.7 fl (80-100); Mean Platelet Volume 9.1 fl (7.4-10.4); Monocytes Absolute Auto 0.7 K/mm3 (0.1-0.6); Monocytes Percent Auto 8.7 % (2.6-8.5); Neutrophils Absolute Auto 4.6 K/mm3 (1.3-6.7); Neutrophils Percent Auto 61.2 % (45.5-73.1); Platelet Count Result 198 k/mm3 (150-375); Red Blood Count 4.08 M/mm3 (4.6-6.20); Red Cell Distribution Width 12.7 % (11.5-14.5); White Blood Count 7.5 K/mm3 (4.5-10.0)
[2024-07-08 17:48] LABS: Lactic Acid Reflex 0.6 mmol/L (0.7-2.0)
[2024-07-08 17:49] LABS: Alanine Aminotransferase 31 U/L (6-50); Albumin Level 3.9 g/dL (3.5-5.1); Alkaline Phosphatase 90 U/L (38-126); Anion Gap 5 mmol/L (4-12); Aspartate Amino Transferase 72 U/L (17-59); Bilirubin,Total 0.9 mg/dL (0.2-1.3); Blood Urea Nitrogen 10 mg/dL (9-20); Calcium 8.8 mg/dL (8.4-10.2); Carbon Dioxide 29 mmol/L (22-30); Chloride 100 mmol/L (98-107); Estimated CRCL calculation 93 ml/min; Estimated Glomerular Filt Rate > 60; Glucose 106 mg/dL (65-110); Lipase 14 U/L (23-300); Potassium 3.6 mmol/L (3.4-5.0); Sodium 134 mmol/L (137-145)
[2024-07-08 18:19] LABS: Add Urine Microscopic? YES; Appearance Urine Clear (Clear); Bacteria Urine None Seen /hpf; Bilirubin Urine Negative (Negative); Blood Urine Negative (Negative); Color Urine Yellow (Yellow); Glucose Urine UA Negative (Negative); Ketones Urine Negative (Negative); Leukocyte Esterase Ur Trace LEU/UL (Negative); Nitrate Urine Negative (Negative); Non Pathogenic Casts 0-2; Protein Urine Negative (Negative); RBC Urine 0-2 /hpf (0-2); Specific Grav Ur 1.009 (1.001-1.035); Squamous Epithelial Cell Urine None Seen /hpf (Few); WBC Urine 0-5 /hpf (0-3)
[2024-07-08] MEDS: LACTATED RINGERS 1,000 ML 999 ML IV CONT (18:22)
[2024-07-08] MEDS: HYDROmorphone HCL INJ (*CRX) 2 MG/ML VIAL 0.5 MG IV PUSH (18:23)
--- OUTSIDE RECORDS SUMMARY | 2024-07-08 18:40 | XMS_ITS | Continuity of Care Document ---
Author Organization [facility] Address [address] [facility] [place] [address] Phone Care Team Providers Care Marketing Content Coordinator Name Role Phone Alonzo Prince MD Unavailable Unavailable Allergies, Adverse Reactions, Alerts Substance Reaction Status Criticality tramadol Nausea Active No Information Medications Medication Instructions Dosage Effective Dates (start - stop) Status Comments Xanax 0.5 mg tablet take 1 tablet (0.5MG) by oral route every 4 - 6 hours as needed 0.5 MG - Active PRN for anxiety, avoid driving or operate machines Percocet 10 mg-325 mg tablet take 1 tablet by oral route every 6 hours as needed 1.00 tablet - Active avoid driving or operate machines lisinopril 40 [...] Diagnoses Date Provider Providers Copied on Encounter [facility], [address] [facility] [place], [id number], [place] tel:[phone] [facility] No Information 3 Suresh Rosado. [address], [address], [place], [place], [address] , [place]. tel:[phone] Referring Provider: Paris Swann [address], [place], [place], [address]. tel:[phone] OFFICE/OUTPA TIENT VISIT, [facility], [address], [place], [place], [address], [place] tel:[phone] [facility] lumbago (chief complaint)visio n change (chief complaint)anxie ty (chief complaint) Dietary surveillance and counselingLumb agoUnspecified visual disturbanceGen eralized anxiety disorder 3 Suresh Stoner [address], [address], [place], [place], [address] , [place]. tel:[phone] Referring Provider: Paris Sw[address], [place], [place], [address]. tel:[phone] OFFICE/OUTPA TIENT VISIT, [facility], [address], [place], [place], [address], [place] tel:[phone] [facility] back pain (chief complaint)anxie ty (chief complaint) Dietary surveillance and counselingLumb agoGeneralized anxiety disorderHypert ension, Unspecified 3 Suresh Stoner [address], [place], [place], [address] , [place]. tel:[phone] Referring Provider: Paris Sw[address], [place], [place], [address]. tel:[phone] OFFICE/OUTPA TIENT VISIT, [facility], [address], [place], [place], [address], [place] tel:[phone] [facility] back pain (chief complaint) Dietary surveillance and counselingLumb ago 3 Suresh Rosado. [address], [address], [place], [place], [address] , [place]. tel:[phone] Referring Provider: Alonzo Prince, [address], [place], [place], [address]. tel:[phone] OFFICE/OUTPA TIENT VISIT, [facility], [address], [place], [place], [address], [place] [phone] [facility] back pain (chief complaint)HTN (chief complaint)Rash (chief complaint)axila ry bump (chief complaint) Dietary surveillance and counselingHype rtension, UnspecifiedRas h and other nonspecific skin eruptionEnlarg ement of lymph nodes 3 Suresh Rosado. [address], [place], [place], [address] , [place]. tel:[phone] Referring Provider: Alonzo Prince, [address], [place], [place], [address]. tel:[phone] OFFICE/OUTPA TIENT VISIT, [facility], [address], [place], [place], [address], [place] tel:[phone] [facility] back pain (chief complaint)HTN (chief complaint) Dietary surveillance and counselingLumb agoHypertensio n, Unspecified 3 Suresh Rosado. [address], [place], [place], [address] , [place]. [phone] Referring Provider: Alonzo Prince, [address], [place], [place], [address]. tel:[phone] OFFICE/OUTPA TIENT VISIT, [facility], [address], [place], [place], [address], [place] tel:[phone] [facility] back pain (chief complaint) Dietary surveillance and counselingLumb ago 2 Suresh Rosado. [address], [place], [place], [address] , [place]. tel:[phone] Referring Provider: Alonzo Prince, [address], [place], [place], [address]. tel:[phone] OFFICE/OUTPA TIENT VISIT, EST [facility], [address], [place], [place], [address], [place] tel:[phone] [facility] Medicine hyperilpidemia (chief complaint)vitam in D (chief complaint)back pain (chief complaint) Dietary surveillance and counselingLumb agoOther and unspecified hyperlipidemia Unspecified vitamin d deficiencyHype rtension, UnspecifiedInf luenza Vaccine 2 Suresh Rosado. [address], [place], [place], [address] , [place]. tel:[phone] Referring Provider: Paris [address]ann [address], [place], [place], [address]. tel:[phone] OFFICE/OUTPA TIENT VISIT, [facility], [address], [place], [place], [address], [place] tel:[phone] [facility] back pain (chief complaint)HTN (chief complaint) Dietary surveillance and counselingInso mnia, OtherHypertens ion, UnspecifiedLum bago 2 Suresh Stoner [address], [place], [place], [address] , [place]. tel:[phone] Referring Provider: Paris [address], [place], [place], [address]. tel:[phone] PREV VISIT, EST, AGE 40-64 [facility], [address], [place], [place], [address], [place] tel:[phone] [facility] preventive exam (chief complaint)back pain (chief complaint) Dietary surveillance and counselingRout ine Medical ExamRoutine Medical Exam 2 Suresh Rosado. [address], [place], [place], [address] , [place]. tel:[phone] Family History Family Member Type Diagnosis Age [...] caloric intake Related to Dietary surveillance counseling Assessments Type Assessment Date No Information
--- OUTSIDE RECORDS SUMMARY | 2024-07-08 18:41 | XMS_ITS | Clinical Summary ---
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 Take 1 tablet [...] Type Department Care Team Description 05/04/2024 Telephone [facility] Cardiology [address] [place] [address] [place] [phone] Sabrina Leal NP 04/19/2024 Telephone [facility] Cardiology [address] [place] [address] [place] [phone] Sabrina Leal NP 04/18/2024 10:15 AM METAL BONDING CRIB ATTENDANT Ancillary Procedure [facility] Cardiology [address] [place] [address] [place] [phone] elevation myocardial infarction (STEMI); Chest pain, unspecified type 04/18/2024 Telephone [facility] Cardiology [address] [place] [address] [place] [phone] Sabrina Leal NP 04/11/2024 Telephone [facility] Medical [facility] Cardiology [address] [place] [address] Benja May MD Chest Pain [...] Comments Blood Pressure 120/72 01/25/2024 1:58 PM METAL BONDING CRIB ATTENDANT Pulse 66 01/25/2024 1:58 PM METAL BONDING CRIB ATTENDANT Temperature 37 C (98.6 F) 09/14/2021 6:12 PM CDT Respiratory Rate 20 09/14/2021 6:12 PM CDT Oxygen Saturation 98% 01/25/2024 1:58 PM METAL BONDING CRIB ATTENDANT Inhaled Oxygen Concentration - - Weight 86.2 kg (190 lb) 01/25/2024 1:58 PM METAL BONDING CRIB ATTENDANT Height 180.3 cm (5' 11 ) 01/25/2024 1:58 PM METAL BONDING CRIB ATTENDANT Body Mass Index 26.5 01/25/2024 1:58 PM METAL BONDING CRIB ATTENDANT Plan of Treatment Health Maintenance Due Date [...] Read Routine (OP Routine) 04/18/2024 12:03 PM METAL BONDING CRIB ATTENDANT History of ST elevation myocardial infarction (STEMI) Chest pain, unspecified type from Last 3 Months Results * NM MPI SPECT (Rest and/or Stress) Multiple Studies (04/18/2024 12:03 PM METAL BONDING CRIB ATTENDANT) LV EF % CONS SCIMAGE Anatomical Region Laterality Modality Body N/A Nuclear Medicine 04/18/2024 10:3 5 AM METAL BONDING CRIB ATTENDANT Narrative 04/19/2024 7:50 AM METAL BONDING CRIB ATTENDANT [facility] Medical Group Cardiology [address] [facility] [address] [phone] [facility] [address] [address] P:[phone] P:[phone] MPI Imaging Report Patient Name: DAFNE MANZO : 1960 Study Date: 04/18/2024 10:35:41 AM Gender: M Tech: DONAVON LAYTON Location: [place] Ref Provider: SABRINA LEAL Height(Cm): 180.3 BSA: [...] By: Jimmy Moreira MD 04/19/2024 7:49:39 AM METAL BONDING CRIB ATTENDANT Electronically Signed By: Jimmy Moreira MD 04/19/2024 7:49:39 AM METAL BONDING CRIB ATTENDANT Procedure Note Jimmy Moreira MD - 04/19/2024 [facility] Medical [facility] Cardiology [address] [facility] [address] [address] [address] [facility] [address] [address] P:[phone] P:[phone] MPI Imaging Report Patient Name: DAFNE MANZO : 1960 Study Date: 04/18/2024 10:35:41 AM Gender: M Tech: DONAVON LAYTON Location: [facility] Provider: SABRINA LEAL Height(Cm): 180.3 BSA: [...] By: Jimmy Moreira MD 04/19/2024 7:49:39 AM METAL BONDING CRIB ATTENDANT Electronically Signed By: Jimmy Moreira MD 04/19/2024 7:49:39 AM METAL BONDING CRIB ATTENDANT Sabrina Leal NP IMG NM PROCEDURES Final R esult from Last [address] [place] [address] [facility] CHOICE PLUS [facility] CHOICE PLUS [facility] CHOICE PLUS BLUE ACCESS OOS Care Teams Telemarketing Supervisor Relationship Specialty Start Date End Date Dylon Garcia PA [address] [place] [address] [place] [address] PCP - General Internal Medicine 01/25/24
--- OUTSIDE RECORDS SUMMARY | 2024-07-08 18:41 | XMS_ITS | Referral Summary ---
Author Organization [facility] Address 1 [place] [address] Care Team Providers Care Precision Dancer Name Role Phone Dylon Garcia Primary Care Provider + Encounters Date Type Department Care Team Description 05/04/[address] [facility] Medical [facility] Cardiology [address] [place] [address] [place] [phone] Sabrina Leal NP 04/19/2024 Telephone [facility] Cardiology [address] [place] [address] [address] [place] [phone] Sabrina Leal NP 04/18/2024 Telephone [facility] Cardiology [address] [place] [address] [address] [place] [phone] Sabrina Leal NP 04/18/2024 10:15 AM LEACH CELL OPERATOR Ancillary Procedure [facility] Cardiology [address] [place] [address] [place] [phone] elevation myocardial infarction (STEMI); Chest pain, unspecified type 04/11/2024 Telephone [facility] Cardiology [address] [place] [address] [address] [place] [phone] Benja May MD Chest Pain from Last [...] 20 mg tabletIndication s:Coronary artery disease involving hopland coronary artery of hopland heart without angina pectoris Take 1 tablet [...] Comments Blood Pressure 120/72 01/25/2024 1:58 PM LEACH CELL OPERATOR Pulse 66 01/25/2024 1:58 PM LEACH CELL OPERATOR Temperature 37 C (98.6 F) 09/14/2021 6:12 PM CDT Respiratory Rate 20 09/14/2021 6:12 PM CDT Oxygen Saturation 98% 01/25/2024 1:58 PM LEACH CELL OPERATOR Inhaled Oxygen Concentration - - Weight 86.2 kg (190 lb) 01/25/2024 1:58 PM LEACH CELL OPERATOR Height 180.3 cm (5' 11 ) 01/25/2024 1:58 PM LEACH CELL OPERATOR Body Mass Index 26.5 01/25/2024 1:58 PM LEACH CELL OPERATOR Plan of Treatment Not on file Procedures Procedure Name Priority Date/Time Associated Diagnosis Comments NM MPI SPECT (REST AND/OR STRESS) MULTIPLE STUDIES Schedule Routine, Read Routine (OP Routine) 04/18/2024 12:03 PM LEACH CELL OPERATOR History of ST elevation myocardial infarction (STEMI) Chest pain, unspecified type from Last 3 Months Results * NM MPI SPECT (Rest and/or Stress) Multiple Studies (04/18/2024 12:03 PM LEACH CELL OPERATOR) LV EF % CONS SCIMAGE Anatomical Region Laterality Modality Body N/A Nuclear Medicine 04/18/2024 10:3 5 AM LEACH CELL OPERATOR Narrative 04/19/2024 7:50 [address] [facility] Medical Group Cardiology [address] [facility] [address], [place] [address] [address] [facility] [address], [place] [address] P:[phone] P:[phone] MPI Imaging Report Patient Name: DAFNE MANZO : 1960 Study Date: 04/18/2024 10:35:41 AM Gender: M Tech: [facility] Location: [facility] Provider: SABRINA LEAL Height(Cm): 180.3 [...] By: Jimmy Moreira MD 04/19/2024 7:49:39 AM LEACH CELL OPERATOR Electronically Signed By: Jimmy Moreira MD 04/19/2024 7:49:39 AM LEACH CELL OPERATOR Procedure Note Jimmy Moreira MD - 04/19/2024 [facility] Cardiology [address] [facility] [address], [place] [address] [address] [facility] [address], [place] [address] P:[phone] P:[phone] MPI Imaging Report Patient Name: DAFNE MANZO : 1960 Study Date: 04/18/2024 10:35:41 AM Gender: M Tech: [facility] Location: [facility] Provider: SABRINA LEAL Height(Cm): 180.3 [...] By: Jimmy Moreira MD 04/19/2024 7:49:39 AM LEACH CELL OPERATOR Electronically Signed By: Jimmy Moreira MD 04/19/2024 7:49:39 AM LEACH CELL OPERATOR Sabrina Leal WEATHER FORECASTER IMG NM PROCEDURES Final R esult from Last 3 Months Insurance [facility] CHOICE PLUS [facility] HMO/PPO Address: [place] [address] [place] [address] [facility] CHOICE PLUS [facility] H[facility]/PPO Address: [place] [address] [facility] CHOICE PLUS [facility] HMO/PPO Address: [address] [address] [place] [address] BLUE ACCESS OOS Care Teams Precision Dancer Relationship Specialty Start Date End Date Dylon Garcia PA [facility] [place] [address] PCP - General Internal Medicine 01/25/24
--- OUTSIDE RECORDS SUMMARY | 2024-07-08 18:41 | XMS_ITS | Encounter Summary ---
Author Organization [facility] Address [address] [place] [address] Care Team Providers Care Business Solutions Architect Name Role Phone Gemma Gaytan MD Primary Care Provider Benja May MD Unavailable [phone] Encounter Details Date Type Department Care Team (Late st Contact Info) Description 11/26/2023 [employer] Message Enc [facility] Medical Group Multispecialty Care - [facility] [address] [facility], [address] [place] [phone] Marcell Arana MD 3 [place] [address] Upcoming appointment Social History Tobacco Use Types [...] from your doctor or pharmacy? Never 07/17/2023 [facility] Utilities Answer Date Recorded In [...] How often do you attend chur or yarsanism services? Never 07/17/2023 Do you belong to [...] Recorded Patient Health Questionnaire-2 Score 0 07/17/2023 [facility] of Occupat ional Health - Occupational Stress [...] any time in the past 12 m [facility], were you homeless or living in a intermediate (including now)? No 07/17/2023 Sex and Gender [...] on filedocumented in this encounter Care Teams Business Solutions Architect Relationship Specialty Start Date End Date Gemma Gaytan MD [facility] [place] [address] PCP - General FAMILY PRACTICE 12/19/22 Benja May MD [address] [facility] [address] [place], [place] [phone] CARDIOVASCULAR DISEASE 03/10/23 documented as of this encounter
--- OUTSIDE RECORDS SUMMARY | 2024-07-08 18:41 | XMS_ITS | Encounter Summary ---
Author Organization [facility] Address [address] [place] [address] Care Team Providers Care Casing Tier Name Role Phone Gemma Gaytan MD Primary Care Provider [phone] Benja May MD Unavailable [phone] Encounter Details Date Type Department Care Team (Late st Contact Info) Description 07/27/2023 S[employer] Message Enc [facility] Medical Group Multispecialty Care - [facility] [address] [facility], [address] [place] [phone] Marcell Arana MD 3 [place] [address] Personal care Social History Tobacco Use Types [...] doctor or pharmacy? Never 07/17/2023 [facility] Utilities Answer Date Recorded In the [...] How often do you attend chur or advent services? Never 07/17/2023 Do you belong to any clubs o r organizations such as hindu groups, unions, fraternal or athletic groups, or [...] Recorded Patient Health Questionnaire-2 Score 0 07/17/2023 [facility] [place] of Occupat ional Health - Occupational Stress [...] time in the past 12 m [facility], were you homeless or living in a care home (including now)? No 07/17/2023 Sex and [...] on filedocumented in this encounter Care Teams Casing Tier Relationship Specialty Start Date End Date Gemma Gaytan MD [facility] [place] [address] PCP - General FAMILY PRACTICE 12/19/22 Benja May MD [address] [facility] [address] [place], [place] [phone] CARDIOVASCULAR DISEASE 03/10/23 documented as of this encounter
--- OUTSIDE RECORDS SUMMARY | 2024-07-08 18:41 | XMS_ITS | Encounter Summary ---
Author Organization [facility] Address [address] [place] [address] Care Team Providers Care Neon Glass Bender Name Role Phone Gemma Gaytan MD Primary Care Provider [phone] Benja May MD Unavailable [phone] Encounter Details Date Type Department Care Team (Late st Contact Info) Description 10/26/2023 [employer] Message [facility] Mult[facility]pecialty Care - [facility] [address] [facility], [address] [place] [phone] Marcell Arana MD 3 [place] [address] Toroidal Social History Tobacco Use Types Packs/Day [...] doctor or pharmacy? Never 07/17/[address] [facility] Utilities Answer Date Recorded In [...] How often do you attend chur or yazidi services? Never 07/17/2023 Do you belong to any clubs o r organizations such as gnosticism groups, unions, fraternal or athletic groups, or [...] Recorded Patient Health Questionnaire-2 Score 0 07/17/2023 [facility] of Occupat ional Health - Occupational Stress [...] were you homeless or living in a assisted (including now)? No 07/17/2023 Sex and Gender [...] care transitions and discharge planning Lifestyle No Mla Alva RN documented as of this encounter Visit Diagnoses Not on filedocumented in this encounter Care Teams Neon Glass Bender Relationship Specialty Start Date End Date Gemma Gaytan MD [facility] [place] [phone] PCP - General FAMILY PRACTICE 12/19/22 Benja May MD [address] [place], [place] [address] CARDIOVASCULAR DISEASE 03/10/23 documented as of this encounter
--- OUTSIDE RECORDS SUMMARY | 2024-07-08 18:41 | XMS_ITS | Encounter Summary ---
Author Organization [facility] Address [address] [place] [address] Care Team Providers Care Project Controller Name Role Phone Gemma Gaytan MD Primary Care Provider [phone] Benja May MD Unavailable [phone] Encounter Details Date Type Department Care Team (Late st Contact Info) Description 08/18/2023 RumbleTalkt Message Enc [facility] Medical Group Multispecialty Care - [facility] [address] [facility], [address] [place] [phone] Dai Faria APRN 3 [facility] [address] [place] [address] Magnetic collar Social History Tobacco Use Types [...] from your doctor or pharmacy? Never 07/17/2023 [facility] Utilities Answer Date Recorded In the past [...] any clubs o r organizations such as cheondoism groups, unions, fraternal or athletic groups, or [...] Recorded Patient Health Questionnaire-2 Score 0 07/17/2023 [facility] of Occupat ional Health - Occupational [...] any time in the past 12 m [facility], were you homeless or living in a half-way (including now)? No 07/17/2023 Sex and Gender [...] on filedocumented in this encounter Care Teams Project Controller Relationship Specialty Start Date End Date Gemma Gaytan MD [facility] [place] [phone] PCP - General FAMILY PRACTICE 12/19/22 Benja May MD [address] [facility] [address] [facility] [address] [place], [place] [phone] CARDIOVASCULAR DISEASE 03/10/23 documented as of this encounter
--- OUTSIDE RECORDS SUMMARY | 2024-07-08 18:41 | XMS_ITS | Clinical Summary ---
Author Organization [facility] Address [address] [place] [address] Phone Care Team Providers Care Herb Grower Name Role Phone Kailash Peres APRN, SCRIPT GIRL Primary Care Pro vider Aki Hanson MD Unavailable [phone] Allergies Active Allergy Reactions Criticality Noted Date [...] on file Legal Sex Male 10:26 AM FIXED INTEREST DEALER Gender Identity Not on file Sexual Orientation [...] to complete this topic Insurance Care Teams Herb Grower Relationship Specialty Start Date End Date Kailash Peres APRN, SCRIPT GIRL [address] [place] [address] DR CINTHYA Simon [facility] [address] [place] [address] PCP - General Advanced Practice Nurse 04/20/17 Aki Hanson MD [address] [place] [address] Consulting Physician Oncology 08/18/23
--- OUTSIDE RECORDS SUMMARY | 2024-07-08 18:41 | XMS_ITS | Clinical Summary ---
Author Organization [facility] Address [address] [place] [address] Care Team Providers Care Citrus Fruit Colorer Name Role Phone Gemma Gaytan MD Primary Care Provider [phone] Benja May MD Unavailable [phone] Allergies Active Allergy Reactions Criticality Noted Date [...] cervical spinal fusion 08/04/2023 Cord compression myelopathy ([facility]) Anisocoria 08/04/2023 Cervical stenosis of spine 07/17/2023 [...] doctor or pharmacy? Never 07/17/2023 [facility] Utilities Answer Date Recorded In the past 12 months has e [employer], oil, or water [employer] threatened to shut off services in your [...] week 07/17/2023 How often do you attend [facility] or jew services? Never 07/17/2023 Do you belong to any clubs o r organizations such as islam groups, unions, fraternal or athletic groups, or [...] Recorded Patient Health Questionnaire-2 Score 0 07/17/2023 [facility] of Occupat ional Health - Occupational [...] any time in the past 12 m [facility], were you homeless or living in a mcfp (including now)? No 07/17/2023 Sex and Gender [...] - 2023-2 5 season) 2023 PHQ-2 (Physician [place]) 03/23/2024 07/17/2023 Pneumococcal Vaccine: 50+ Years (3 [...] Alva, RN Medical Devices Implanted Type Area Cook Fast Food Device Identifier Shelf Expiration Date Model / Serial / Lot Graft Infuse Bone Xsmall - [id number] Implanted:Qty: 1 on 07/20/2023 by Marcell Arana MD at [facility] N/A: Spine Cervical [employer] [id number] 08/21/2024 [id number] / / [id number] Putty Freehold Matrix Dbm/Dbf Bone l - [id number] Implanted:Qty: 1 on 07/20/2023 by Marcell Arana MD at [facility] Bone N/A: Spine Cervical [employer] [id number] 06/18/2025 [id number] / [id number] / Medtronic Endoskeleton Tc Interbody System Implanted:Qty: 1 on 07/20/2023 by Marcell Arana MD at [facility] Cage N/A: Spine Cervical [employer] [id number] 04/30/2028 [id number] -N / / [id number] Description:C4-C5 Medtronic Endoskeleton Tc Interbody System Implanted:Qty: 1 on 07/20/2023 by Marcell Arana MD at [facility] Cage N/A: Spine Cervical [employer] [id number] 04/30/2028 [id number] -N / / [id number] Description:C3-C4 80 Mm Elite Plate Implanted:Qty: 1 on 07/20/2023 by Marcell Arana MD at [facility] Plate N/A: Spine Cervical [employer] . [id number] / / . 4.0 X 16 Mm Screws Implanted:Qty: 10 on 07/20/2023 by Marcell Arana MD at [facility] Screw N/A: Spine Cervical [employer] . [id number] / / . Nanolock Surface [employer] Mmn Endoskeleton Tc Interbody System Implanted:Qty: 1 on 07/20/2023 by Marcell Arana MD at [facility] Spacer N/A: Spine Cervical [id number] 03/26/2028 / / [id number] Description:C6-C7 [employer] Mmn Endoskeleton Tc Interbody System Implanted:Qty: 1 on 07/20/2023 by Marcell Arana MD at [facility] Spacer N/A: Spine Cervical [employer] [id number] 04/23/2028 [id number] -N / / [id number] Description:C5-C6 Explanted Type Area Cook Fast Food Device Identifier Shelf Expiration Date Model / Serial / Lot Distration Pin 12mm - [id number] Explanted:Qty: 1 on 07/20/2023 by Marcell Arana MD at [facility] Pin N/A: Spine Cervical [employer] DP-12-TB / / Distration Pin 12mm - [id number] Explanted:Qty: 1 on 07/20/2023 by Marcell Arana MD at [facility] Pin N/A: Spine Cervical [employer] DP-12-TB / / Plate Holding Pin Explanted:Qty: 3 on 07/20/2023 by Marcell Arana MD at [facility] Pin N/A: Spine Cervical [employer] . [id number] / / . Insurance [facility] Advance Directives * Full Code (Latest Code Status on File) Date Activated Date Inactivated Comments 07/20/2023 6:45 PM 07/22/2023 2:50 PM * Full Code Date Activated Date Inactivated Comments 07/17/2023 5:24 PM 07/20/2023 6:45 PM Care Teams Citrus Fruit Colorer Relationship Specialty Start Date End Date Gemma Gaytan MD [facility] [place] [phone] PCP - General FAMILY PRACTICE 12/19/22 Benja May MD [address] [facility] [address] [place] [address] [address] [place] [address] CARDIOVASCULAR DISEASE 03/10/23
--- OUTSIDE RECORDS SUMMARY | 2024-07-08 18:41 | XMS_ITS | Encounter Summary ---
Author Organization [facility] Address [address] [place] [address] Care Team Providers Care Rod Mill Operator Name Role Phone Gemma Gaytan MD Primary Care Provider [phone] Benja May MD Unavailable [phone] Encounter Details Date Type Department Care Team (Late st Contact Info) Description 09/14/2023 LiquidFrameworkst Message Enc [facility] Medical Group Multispecialty Care - [facility] 3 [facility], [address] [place] [phone] Marcell Arana MD 3 [place] [address] Swallowing Social History Tobacco Use Types Packs/Day [...] from your doctor or pharmacy? Never 07/17/2023 [facility] Utilities Answer Date Recorded In the [...] week 07/17/2023 How often do you attend [facility] or christianity services? Never 07/17/2023 Do you belong to any clubs o r organizations such as confucianism groups, unions, fraternal or athletic groups, or [...] Recorded Patient Health Questionnaire-2 Score 0 07/17/2023 [facility] of Occupat ional Health - [...] any time in the past 12 m [facility], were you homeless or living in a skilled nursing (including now)? No 07/17/2023 Sex and Gender [...] Author Status No 07/17/2023 9:52 PM CDT bAbey Vasques RN Active documented as of this [...] on filedocumented in this encounter Care Teams Rod Mill Operator Relationship Specialty Start Date End Date Gemma Gaytan MD [facility] [place] [phone] PCP - General FAMILY PRACTICE 12/19/22 Benja May MD [address] [place], [place] [phone] CARDIOVASCULAR DISEASE 03/10/23 documented as of this encounter
--- OUTSIDE RECORDS SUMMARY | 2024-07-08 18:41 | XMS_ITS | Encounter Summary ---
Author Organization [facility] Address [address] [place] [address] Phone Care Team Providers Care Airbrush Artist Photography Name Role Phone Kailash Peres APRN, TENNIS BALL COVER CEMENTER Primary Care Pro vider Aki Hanson MD Unavailable Reason for Visit * Reason Comments Medication Refill Encounter Details Date Type Department Care Team (Late st Contact Info) Description 08/17/2023 Refill [facility] [address] [address] Aki Hanson MD [address] [place] [phone] Medication Refill Social History Tobacco Use Types Packs/Day Years Used Date Smoking Tobacco: Every Day Cigarettes Smokeless Tobacco: Never Alcohol Use Standard Drinks/Week Comments Not Currently 0 (1 standard drink = 0.6 oz pur e alcohol) Sex and Gender Information Value Date Recorded Sex Assigned at Not on file 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
--- OUTSIDE RECORDS SUMMARY | 2024-07-08 18:41 | XMS_ITS | Clinical Summary ---
Author Organization [facility] Address [address] [place] [address] Care Team Providers Care Bowling Ball Molder Name Role Phone Gemma Morales MD Primary Care Provider [phone] Source Comments [facility],non-owned Affiliates and Associated Physician Practices is amultiple site organization consisting of ambulatory clinics and hospital sitesin [place], [place], [place] and [place]. This disclosure is being madepursuant to the Care Everywhere program and may not contain all information available regarding this patient. 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 Gender Identity Not on file Sexual Orientation [...] 7 - 26 mg/dL 06/26/2021 12:56 AM [facility] Creatinine 0.81 0.71 - 1.16 mg/dL 06/26/2021 12:56 AM [facility] Sodium 138 136 - 145 mmol/L 06/26/2021 12:56 AM [facility] Potassium 3.5 3.5 - 4.5 mmol/L 06/26/2021 12:56 AM [facility] Chloride 105 98 - 107 mmol/L 06/26/2021 12:56 AM [facility] CO2 22 22 - 29 mmol/L 06/26/2021 12:56 AM [facility] Glucose 94 70 - 115 mg/dL 06/26/2021 12:56 AM [facility] Calcium 8.4 8.4 - 10.2 mg/dL 06/26/2021 12:56 AM CDT [facility] Anion Gap 15 8 - 18 06/26/2021 12:56 AM [facility] BUN/Creatinine Ratio 10 7 - 23 06/26/2021 12:56 AM [facility] Osmolality Calculated 284 270 - 300 mOsm/kg 06/26/2021 12:56 AM [facility] eGFR by CKD-EPI >90 >=90 mL/min/1.7 3 m2 06/26/2021 12:56 AM [facility] Blood BLOOD SPECIMEN / Unknown Venipuncture / Unknown 06/26/2021 12:23 AM CDT 06/26/2021 12:29 AM CDT Emiliano Collins MD LAB - CHEMISTRY ORDERABLES Final Result [facility] [address] [place] [address], [facility] [phone] from Last 3 Months or Most Recently Relevant to Health Maintenance Insurance [facility] Advance Directives * Full Code (Latest Code Status on File) Date Activated Date Inactivated Comments 06/26/2021 12:52 AM 06/27/2021 6:47 PM Care Teams Bowling Ball Molder Relationship Specialty Start Date End Date Gemma Morales MD [address] [place] [address] [address] [place] [address] PCP - General Family Medicine 06/24/21
--- OUTSIDE RECORDS SUMMARY | 2024-07-08 18:41 | XMS_ITS | Encounter Summary ---
Author Organization [facility] Address [address] [place] [address] Care Team Providers Care Daycare Director Name Role Phone Gemma Gaytan MD Primary Care Provider Benja May MD Unavailable [phone] Encounter Details Date Type Department Care Team (Late st Contact Info) Description 03/04/2024 [employer]™ Media [employer]ou[employer] Message Enc [facility] Medical Group Multispecialty Care - [facility] [address] [facility], [address] [place] [phone] Marcell Arana MD [address] [place] [address] Prednisone Social History Tobacco Use Types Packs/Day [...] doctor or pharmacy? Never 07/17/2023 [facility] Utilities Answer Date Recorded In the past [...] How often do you attend formerly [facility] or [facility] services? Never 07/17/2023 Do you belong to any clubs o r organizations such as denominational groups, unions, fraternal or athletic groups, or [...] Recorded Patient Health Questionnaire-2 Score 0 07/17/2023 [facility] - [...] any time in the past 12 m [facility], were you homeless or living in a [place] health care facility (including now)? No 07/17/2023 Sex and Gender [...] on filedocumented in this encounter Care Teams Daycare Director Relationship Specialty Start Date End Date Gemma Gaytan MD [facility] [address] [place] [address] PCP - General FAMILY PRACTICE 12/19/22 Benja May MD [address] [facility] [address] [place], [place] [id number] CARDIOVASCULAR DISEASE 03/10/23 documented as of this encounter
--- OUTSIDE RECORDS SUMMARY | 2024-07-08 18:41 | XMS_ITS | Encounter Summary ---
Author Organization [facility] Address [address] [place] [address] Care Team Providers Care News Agent Name Role Phone Gemma Gaytan MD Primary Care Provider [phone] Benja May MD Unavailable Encounter Details Date Type Department Care Team (Late st Contact Info) Description 09/29/2023 [employer] Message Enc [facility] Medical Group Multispecialty Care - [facility] [address] [facility], [address] [place] [phone] Marcell Arana MD [address] [place] [address] Rehab Social History Tobacco Use Types Packs/Day [...] from your doctor or pharmacy? Never 07/17/2023 [facility] Utilities Answer Date Recorded In the [...] How often do you attend chur or synagogue services? Never 07/17/2023 Do you belong to any clubs o r organizations such as yazidi groups, unions, fraternal or athletic groups, or [...] Recorded Patient Health Questionnaire-2 Score 0 07/17/2023 [facility] - Occupational Stress [...] any time in the past 12 m [facility], were you homeless or living in [...] on filedocumented in this encounter Care Teams News Agent Relationship Specialty Start Date End Date Gemma Gaytan MD [address] [place] [address] Dr [facility] [address] [place] [address] PCP - General FAMILY PRACTICE 12/19/22 Benja May MD [address] [facility] [address] [facility] [address] [place] [address] CARDIOVASCULAR DISEASE 03/10/23 documented as of this encounter
--- OUTSIDE RECORDS SUMMARY | 2024-07-08 18:41 | XMS_ITS | Encounter Summary ---
Author Organization [facility] Address [address] [place] [address] Care Team Providers Care Art Class Model Name Role Phone Gemma Gaytan MD Primary Care Provider [phone] Benja May MD Unavailable [phone] Encounter Details Date Type Department Care Team (Late st Contact Info) Description 01/02/2023 Prep for Procedure [facility] Medical Group Orthopedic & Sports Medicine - [place] [address] [place] [address] Mark Maza MD [address] [place] [address] Social History Tobacco Use Types Packs/Day Years [...] on filedocumented in this encounter Care Teams Art Class Model Relationship Specialty Start Date End Date Gemma Gaytan MD [address] [place] [address] [address] [place] [phone] PCP - General FAMILY PRACTICE 12/19/22 Benja May MD [address] [facility] [address] [facility] [address] [place] [address] CARDIOVASCULAR DISEASE 03/10/23 documented as of this encounter
[2024-07-08] MEDS: KETOROLAC 30 MG/ML VIAL (*BKC) IV PUSH (19:30)
== END 2024-07-08 19:41 | disposition home or self-care (01) ==
PROVIDERS: Physician Assistant; Emergency Provider Emergency Medicine; PCP Physician Assistant
DX: K40.90 Unilateral inguinal hernia, without obstruction or gangrene, not specified as recurrent (principal); I25.10 Atherosclerotic heart disease of native coronary artery without angina pectoris; I10 Essential (primary) hypertension; E78.00 Pure hypercholesterolemia, unspecified; N40.0 Benign prostatic hyperplasia without lower urinary tract symptoms; R73.03 Prediabetes; G47.33 Obstructive sleep apnea (adult) (pediatric); F41.9 Anxiety disorder, unspecified; F32.A Depression, unspecified; Z95.5 Presence of coronary angioplasty implant and graft; F17.210 Nicotine dependence, cigarettes, uncomplicated; N28.1 Cyst of kidney, acquired; K86.89 Other specified diseases of pancreas; K59.00 Constipation, unspecified; M89.9 Disorder of bone, unspecified; R93.41 Abnormal radiologic findings on diagnostic imaging of renal pelvis, ureter, or bladder
CPT/HCPCS: 36415; 74176; 80053; 81001; 83605; 83690; 85025; 96361; 96374; 96375; 99284; J1171; J1885; J7120

== ENCOUNTER 2024-08-20 06:36 | Outpatient (CLI) | payer BC, SELFPAY ==
--- OUTSIDE RECORDS SUMMARY | 2024-08-20 06:39 | XMS_ITS | Clinical Summary ---
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
--- OUTSIDE RECORDS SUMMARY | 2024-08-20 06:40 | XMS_ITS | Data Portability ---
Author Organization [place] [facility], Main Office Address [address] [place] [address] Care Team Providers Care Director Strategic Planning Name Role Phone PRASANNA HOANG Primary Care Provider Assessment No assessment recorded. Plan of Treatment Reminders Order Date Submit Date Provider Last Modified By Organization Details Last Modified Time Details Appointments Physical/ Annual Wellness 30 2024 04:00P M Prasanna Honag MD Not available Not available Not available Lab drug screen, urine 2024 025 [email or web address] [facility] ([facility]), [address] [place], [address], 04/18/2024 14:50:33 Referral general surgeon referral - Please call patient to schedule an appointme nt. Thank you. 2024 025 ATHENAFAX Kevin Nieto DO, [address], [address], [place], [address], 07/26/2024 11:52:26 Procedures None recorded. Surgeries None recorded. Imaging LDCT, chest, for lung cancer screening - 2 packs per day since age 17 ,48 years Please call pt to schedule 2023 024 KAZ [facility], [address], [place], [address], 02/03/2024 11:55:48 Medication Orders citalopra m 40 mg tablet 2024 025 [facility] [address] In [facility], [address] [place] [address], [address], 08/16/2024 16:58:47 Depo-Medr ol 80 mg/mL suspensio n for injection 2024 025 [email or web address] Not available 08/16/2024 16:18:08 prednison e 20 mg tablet 2024 025 [facility] [address], [address], 08/16/2024 16:18:26 acetamino phen 300 mg-codein e 60 mg tablet 2024 025 [facility] [address], [address], 04/18/2024 14:38:56 ketorolac 60 mg/2 mL intramusc ular solution 2023 024 [email or web address] Not available 08/16/2024 16:18:39 Patient TargetsNo targets recorded. Patient InstructionsNo instructions recorded. Reason for Referral General Surgeon Referral for Left inguinal hernia Please call patient to schedule an appointment. Thank you. Referring Physician: Dylon Garcia, Family Medicine, Encounter Date: 07/19/2024 Results Created Date Observation Date Name Description Value Unit Range Abnormal Flag Note LastModifiedBy Organization Detail LastModifiedTime 02/03/20 24 02/03/2024 LDCT, chest , for lung cance r scree adolfo No observ ation record ed. [email or web address] [facility] [address], [place], [address], 03/17/2024 15:32:09 03/17/20 24 02/03/2024 LDCT, chest , for lung cance r scree adolfo No observ ation record ed. [email or web address] [facility] [address], [place], [address], 08/16/2024 16:46:56 07/10/19 25 07/08/2024 imagi ng/di agnos tic resul t No observ ation record ed. [email or web address] [facility] [address], [place], [address], 08/16/2024 16:34:16 Result Notes None recorded. Problems Name Problem SNOMED Code Status Onset Date Resolution Date Notes Provider Name and Address Organization Details Recorded Time Hyperchol esterolem ia 85169880 Active 2018 Not Available [facility] 3 06:22:49 Chronic low back pain 849242584 Active 2018 Not Available [facility] 3 06:22:49 History of heroin abuse 11030532208 9105 Active 2018 Not Available [facility] 3 06:22:49 Diverticu litis 786318291 Active 2018 Not Available [facility] 3 06:22:49 Vitamin D deficienc y 98606548 Active 2018 Not Available [facility] 3 06:22:49 Depressiv e disorder 47147430 Active 2018 Not Available [facility] 3 06:22:49 Hypokalem ia 54944822 Active 2018 Not Available [facility] 3 06:22:49 Anxiety 07905381 Active 2018 Not Available [facility] 3 06:22:49 Bradycard ia 19716286 Active 2018 Not Available [facility] 3 06:22:49 Essential hypertens ion 00433988 Active 2018 Not Available [facility] 3 06:22:49 Allergic rhinitis 12514988 Active 2018 Not Available [facility] 3 06:22:49 Eustachia n tube disorder 61500435 Active 2018 Not Available [facility] 3 06:22:49 Prediabet es 485834038 Active 2018 Not Available [facility] 3 06:22:49 Complex renal cyst 353913647 Active 2018 Not Available [facility] 3 06:22:49 Spinal stenosis 99621209 Active 2018 Not Available [facility] 3 06:22:49 Obstructi ve sleep apnea syndrome 59707746 Active 2018 Not Available [facility] 3 06:22:49 Thrombose d external hemorrhoi ds 86447721 Active 2022 Not Available [facility] 3 06:22:49 Venous varices 995374707 Active 2022 Not Available [facility] 3 06:22:49 Chronic neck pain 84893308330 07 Active 2022 Not Available [facility] 3 06:22:49 Paresthes ia of upper limb 45602879 Active 2022 Not Available [facility] 3 06:22:49 Left inguinal hernia 434568039 Active 2022 Prasanna Hoang MD [address], [address], [place], [address] , [facility] 5 16:55:13 Chronic back pain 147938650 Active 2022 Not Available [facility] 3 06:22:49 Pain in right hand 43467060115 9109 Active 2022 Nisha Mitchell CMA null, [place] [facility] 3 15:23:18 Pain of bilateral hands 28025079235 144692 Active 2022 Nisha [place] CMA null, [place] [facility] 3 15:41:36 Dyspnea 070063830 Active 2022 RAVI Barber [address], [address], [place], [address] , [facility] 3 17:30:00 Administr ation of pneumococ dion vaccine Active 2023 RAVI Barber [address], [address], [place], [address] , [facility] 4 10:48:31 Eczema 56883922 Active 2023 RAVI Barber [address], [address], [place], [address] , [facility] [employer] [employer] [facility] 4 10:13:00 Vitamin B12 deficienc y (non anemic) 94840833 Active 2023 Briseida Iglesias RN null, [facility] [employer] [facility] 4 11:29:37 Nicotine dependenc e 53606435 Active 2023 RAVI Barber [address], [address] [employer], [place], [address] , [facility] [employer] [facility] [employer] [facility] 4 11:46:05 Harmful pattern of use of nicotine 317069419 Active 2023 RAVI Barber [address] [employer], [place], [address] , [facility] [employer] [employer] [facility] 4 11:53:03 Administr ation of Varicella -zoster vaccine for shingles Active 2023 RAVI Barber [address] [employer], [place], [address] , [facility] [employer] [employer] [facility] 4 11:54:46 Adult health examinati on Active 2023 RAVI Barber [address], [employer], [place], [address] , [facility] [employer] [facility] 4 16:12:21 Extractio n Active 2024 RAVI Barber [address] [employer], [place], [address] , [facility] [employer] [facility] [employer] [facility] 5 09:37:51 Loss of teeth due to extractio n 21638177 Active 2024 RAVI Barber [address], [employer], [place], [address] , [facility] [employer] [facility] 5 09:40:29 Axonal sensorimo tor neuropath y 561047399 Active 2024 see nerve conductio n /emg 06/14 RAVI Barber [address], [address], [place], [address] , [place] [facility] 5 12:39:42 Spinal stenosis in cervical region 38878181 Active 2024 Prasanna Hoang MD [address], [address], [place], [address] , [place] [facility] 5 16:21:29 Stenosis of intervert ebral foramina 27411660298 9 Active 2024 Prasanna Hoang MD [address], [address], [place], [address] , [place] [facility] 5 16:21:33 Cervical spondylos is 510890669 Active 2024 Prasanna Hoang MD [address], [address], [place], [address] , [place] [facility] 5 16:21:47 Thoracic spondylos is 111132516 Active 2024 Prasanna Hoang MD [address], [address], [place], [address] , [place] [facility] [employer] [facility] 5 16:21:58 Chronic back pain greater than three months duration 26328364183 2 Active 2024 Prasanna Hoang MD [address], [address], [place], [address] , [place] [facility] 5 16:22:13 Neuropath y 016817782 Active 2024 Prasanna Hoang MD [address], [address], [place], [address] , [place] [facility] 5 16:22:32 Benign hypertens ion 21719908 Active 2024 Prasanna Hoang MD [address], [address], [place], [address] , [place] [facility] [place] [facility] 5 16:22:41 Mixed hyperlipi demia 799963372 Active 2024 Prasanna Hoang MD [address], [place], [address] , [employer] [facility] [employer] [facility] [employer] 5 16:22:47 Coronary arteriosc lerosis 69544489 Active 2024 Prasanna Hoang MD [address], [address], [place], [address] , [employer] [facility] [employer] [facility] [employer] 5 16:35:58 Pain of knee region 1589600427 Active 2024 Prasanna Hoang MD [address], [address], [place], [address] , [employer] [facility] [employer] [facility] [employer] 5 16:36:20 Chronic depressio n 432067093 Active 2024 Prasanna Hoang MD [address], [address], [place], [address] , [employer] [facility] [employer] [facility] [employer] 5 16:40:23 Chronic obstructi ve pulmonary disease 62489227 Active 2024 Prasanna Hoang MD [address], [address], [place], [address] , [employer] [facility] [employer] [facility] [employer] 5 16:44:07 Cigarette smoker 55298030 Active 2024 Prasanna Hoang MD [address], [place], [address] , [employer] [facility] [employer] [facility] [employer] 5 16:44:39 Problem Notes None recorded. Procedures Surgical History Date Name Laterality Status Provider Name and Address Organization Details Recorded Time 5 Smoking Cessation completed Prasanna Hoang MD [address], [place], [address], [employer] [facility] [employer] [facility] [employer] 08/16/2024 16:55:35 4 Neck spine disk surgery completed Bharti Oliveira RN [place] [facility] [employer] 01/15/2024 11:27:06 3 Carpal tunnel surgery completed Ivone Haider MA [employer] [facility] 03/27/2023 10:18:45 03/10/202 3 I&D completed Gemma Morales MD [address] [facility], [facility] [address], [place], [address], [facility] [employer] [facility] 05/30/2022 16:26:39 Imaging Results None recorded. Procedure Notes None recorded. Medical Equipment None Reported. Allergies Allergen ID Allergen Name Allergen Category Reaction Reaction Severity Criticality Documentation Date Start Date Code Code System Note Provider Name and Address Organization Details Recorded Time 38056 tramadol medicatio n Not available Not available Not available 05/21/2022 60747 RxNorm Not Available [facility] 3 20:27:48 00236 honey bee venom medicatio n Not available Not available Not available 05/21/2022 16912 7 RxNorm Not Available [facility] 3 20:27:48 Medications Name Sig Start Date Stop [...] tablet TAKE 1 TABLET BY MOUTH DAILY DIRECTED. 2024 active Not Available Not Available Not Avai lable ibuprofen 800 mg tablet Take 1 tablet(s) 3 times a day by oral route as needed. 07/19 completed Not Available Not Available Not Available citalopram 10 mg tablet Take 1 tablet(s) every day by oral route. 12/10 completed Not Available Not Available Not Available hydrocodone 5 mg-acetamin ophen 325 mg tablet TAKE 1 TABLET BY MOUTH EVERY 12 HOURS NEEDED FOR PAIN 07/19 completed Not Available Not Available Not Available prednisone 20 mg tablet PLEASE SEE ATTACHED FOR DETAILED DIRECTION S 08/16 completed Not Available Not Available Not Available isosorbide mononitrate ER 30 mg tablet,exte [...] active Not Available Not Available Not Avai labalexandro thiamine HCl (vitamin B1) 100 mg tablet [...] day by injection route for 1 day. 08/16 completed Not Available Not Available Not Available hydrocortis one acetate 25 mg rectal suppository Insert 1 supposito ry twice a day by rectal route for 14 days. 10/18 completed Not Available Not Available Not Available oxycodone-a cetaminophe n 5 mg-325 mg tablet Take 1 tablet every 6 hours by oral route. 07/19 completed Not Available Not Available Not Available hydrocortis one 2.5 % topical cream with perineal applicator APPLY SPARINGLY TO AFFECTED AREA 2 TO 4 TIMES A DAY 08/16 completed Not Available Not Available Not Available isosorbide mononitrate ER 60 mg tablet,exte [...] mL every month by subcutane ous route. 08/16 completed Not Available Not Available Not Available oseltamivir 75 mg capsule TAKE 1 CAPSULE [...] 8 HOURS NEEDED. MAKE LAST 30 DAYS . active Not Available Not Available No t Available hydralazine 50 mg tablet TAKE 1 TABLET [...] by intramusc ular route for 1 day. 08/16 completed Not Available Not Available Not Available ondansetron 4 mg disintegrat ing tablet 08/16 completed Not Available Not Available Not Available losartan 100 mg tablet TAKE 1 [...] 875 mg-potassiu m clavulanate 125 mg tablet 07/19 completed Not Available Not Available Not Available oxycodone [...] Available chlorhexidi ne gluconate 0.12 % mouthwash 08/16 completed Not Available Not Available Not Available fluticasone propionate use 1 spray daily [...] inhalation INHALE 1 PUFF BY MOUTH DAILY 2024 active Not Available Not Available Not Avai lable Vitals Date Recorded Body height Body mass index (BMI) Body weight Body temperature Heart rate Oxygen saturation Oxygen saturation in Arterial blood by Pulse oximetry Systolic blood pressure Diastolic blood pressure Provider Name and Address Organization Details Last Updated DateTime 01/27/202 5 180.34 cm 26.1 kg/m2 54682.7 7 g 98 [degF] 84 /min 98 % 98 % 112 mm[Hg] 80 mm[Hg] Vianney Mckeon CMA [facility] [employer] [facility] 5 14:28:08 Date Recorded Body height Body mass index (BMI) Body weight Body temperature Systolic blood pressure Diastolic blood pressure Provider Name and Address Organization Details Last Updated DateTime 5 180.34 cm 25.2 kg/m2 63623.2 2 g 98.2 [degF] 150 mm[Hg] 88 mm[Hg] Lula Morejon [facility] [employer] [facility] 5 14:07:40 Date Recorded Body height Body mass index (BMI) Body weight Body temperature Oxygen saturation Oxygen saturation in Arterial blood by Pulse oximetry Heart rate Systolic blood pressure Diastolic blood pressure Provider Name and Address Organization Details Last Updated DateTime 5 180.34 cm 25.3 kg/m2 20264.6 7 g 97.2 [degF] 95 % 95 % 59 /min 138 mm[Hg] 82 mm[Hg] Tiffany Che RN [facility] [employer] [facility] 5 16:31:16 Date Recorded Body height Body mass index (BMI) Body weight Body temperature Heart rate Oxygen saturation Oxygen saturation in Arterial blood by Pulse oximetry Systolic blood pressure Diastolic blood pressure Provider Name and Address Organization Details Last Updated DateTime 4 180.34 cm 27.1 kg/m2 82572.9 2 g 97.8 [degF] 66 /min 96 % 96 % 140 mm[Hg] 92 mm[Hg] Bharti Oliveira RN [facility] [employer] [facility] 4 11:33:07 Date Recorded Body height Body mass index (BMI) Body weight Body temperature Heart rate Oxygen saturation Oxygen saturation in Arterial blood by Pulse oximetry Systolic blood pressure Diastolic blood pressure Provider Name and Address Organization Details Last Updated DateTime 4 180.34 cm 26.8 kg/m2 23847.7 4 g 97.4 [degF] 58 /min 99 % 99 % 160 mm[Hg] 110 mm[Hg] Bharti Oliveira RN [facility] [employer] [facility] 4 11:12:59 Social History Question Answer Notes LastModified by [employer] Details LastModified Time Tobacco Smoking Status Current Every Day Smoker Not Available [facility] 05/21/2022 20:24:03 In The 14 Days Before Symptom Onset, Have You Had Close Contact With A Laboratory-confirm ed COVID-19 While That Case Was Ill? No [id number] Information not available 05/21/2022 In The 14 Days Before Symptom Onset, Have You Had Close Contact With A Person Who Is Under Investigation For COVID-19 While That Person Was Ill? No [id number] Information not available 05/21/2022 How Much Tobacco Do You Smoke? 1 PPD [id number] Information not available 05/21/2022 How Many Years Have You Smoked Tobacco? 43 [id number] Information not available 05/21/2022 Sex: Unknown Functional Status Question Answer Note LastModified by Organizat [employer] Details LastModified Time What is your level of alcohol consumption? None [id number] Information not available 05/21/2022 Mental Status None recorded. Family History Relationship Description Onset Age of this Age Resolved Age Notes LastModified by Organization Details LastModified Time Father Family history of malignant neoplasm [id number] Not available 05/21/2022 20:24:13 Mother Family history of malignant neoplasm [id number] Not available 05/21/2022 20:24:13 Maternal Grandmother Family history of malignant neoplasm [id number] Not available 05/21/2022 20:24:13 Medical History No medical history recorded. Immunizations Vaccine Type Date Status Note Provider Nam e and Address Organization Details Recorded Time Influenza, split virus, quadrivalent, preservative 2 completed Prasanna Hoang MD [address], [place] [address], [place], [address], [employer] [facility] 08/16/2024 16:57:32 Influenza, split virus, quadrivalent, preservative 1 completed Prasanna Hoang MD [address], [place], [address], [employer] [facility] 08/16/2024 16:57:32 influenza, unspecified formulation 3 completed Kaylan alberto, [facility] [employer] [facility] 01/27/2023 12:15:53 Influenza, split virus, quadrivalent, preservative 7 completed Prasanna Hoang MD [address], [address], [place], [address], [facility] [employer] [facility] [employer] [facility] 08/16/2024 16:57:32 Influenza, MDCK, quadrivalent, preservative 1 completed Prasanna Hoang MD [address], [address], [place], [address], [facility] [employer] [facility] [employer] [facility] 08/16/2024 16:57:32 pneumococcal polysaccharide PPV23 9 completed Prasanna Hoang MD [address], [address], [place], [address], [facility] [employer] [facility] [employer] [facility] 08/16/2024 16:57:32 Tdap 7 completed Prasanna Hoang MD [address], [address], [place], [address], [employer] [facility] [employer] [facility] 08/16/2024 16:57:32 Tdap 9 completed Prasanna Hoang MD [address], [address], [place], [address], [employer] [facility] [employer] [facility] 08/16/2024 16:57:32 Influenza, split virus, trivalent, preservative 5 completed Prasanna Hoang MD [address], [address], [place], [address], [employer] [facility] [employer] [facility] 08/16/2024 16:57:32 Influenza, split virus, quadrivalent, PF 9 completed Prasanna Hoang MD [address], [address], [place], [address], [facility] [employer] [facility] [employer] [facility] 08/16/2024 16:57:32 Influenza, split virus, quadrivalent, PF 2 completed Prasanna Hoang MD [address], [address], [place], [address], [employer] 08/16/2024 16:57:32 Pneumococcal conjugate PCV 13 4 completed RAVI Barber [address], [address], [place], [address], [employer] 03/29/2023 13:18:24 Influenza, split virus, trivalent, PF 4 completed RAVI Barber [address], [address], [place], [address], [employer] 01/18/2024 16:07:43 zoster recombinant 4 completed RAVI Barber [address], [place], [address], [employer] [facility] 01/18/2024 16:07:43 Past Encounters Encounter ID Performer Location Encounter Start Date Encounter Closed Date Diagnosis/Indication Diagnosis SNOMED-CT Code Diagnosis ICD10 Code Diagnosis Note [id number] Gemma Morales MD [facility] [place] [address] [place] [address] [place] [address] 06/27/2020 00:00:00 06/28/2020 06:26:35 [id number] Gemma Morales MD [facility] [place] [address] [place] [address] [place] [address] 10/08/2020 00:00:00 10/08/2020 22:33:20 [id number] Gemma Morales MD [facility] [place] [address] [place] [address] [place] [address] 12/10/2020 00:00:00 12/11/2020 06:18:29 [id number] Gemma Morales MD [facility] [place] [address] [place] [address] [place] [address] 01/08/2021 00:00:00 01/08/2021 13:56:40 [id number] Gemma Morales MD [facility] [place] [address] [place] [address] 01/16/2021 00:00:00 01/16/2021 21:11:35 [id number] Gemma Morales MD [facility] [place] [address] [place] [address] 02/13/2021 00:00:00 02/13/2021 20:40:22 [id number] Gemma Morales MD [facility] [place] [address] [place] [address] 04/17/2021 00:00:00 04/18/2021 06:06:24 [id number] Gemma Morales MD [facility] [place] [address] [place] [address] 05/15/2021 00:00:00 05/15/2021 19:21:10 [id number] Gemma Morales MD [facility] [place] [address] [place] [address] 05/29/2021 00:00:00 05/29/2021 20:35:07 [id number] Gemma Morales MD [facility] [place] [address] [place] [address] 06/19/2021 00:00:00 06/19/2021 19:06:46 [id number] Gemma Morales MD [facility] [place] [address] [place] [address] 07/09/2021 00:00:00 07/09/2021 10:33:10 [id number] Gemma Morales MD [facility] [place] [address] [place] [address] 09/12/2021 00:00:00 09/12/2021 21:52:58 [id number] Gemma Morales MD [facility] [place] [facility] [place] [address] 11/05/2021 00:00:00 11/05/2021 20:27:08 [id number] Gemma Morales MD [facility] [place] [facility] [place] [address] 12/10/2021 00:00:00 12/11/2021 06:54:40 [id number] Gemma Morales MD [facility] [place] [address] [place] [address] [place] [address] 04/02/2022 00:00:00 04/02/2022 10:18:28 [id number] Gemma Morales MD [facility] Lanie yeung [address] [place] [address] [place] [address] 05/30/2022 11:16:13 05/30/2022 11:54:45 Thrombosed external hemorrhoids 49568208 K64.5 I&D of hemorrhoid done [id number] Gemma Morales MD [facility] L[place] llyany [address] [place] [address] [place] [address] 07/22/2022 09:35:28 07/22/2022 10:02:22 Venous varices 523514257 I86.8 Heat and elevation and tylenol Needs a note off from work for tonight. [employer] hypertension [id number] I10 Has not taken BP meds today. Needs to watch salt in diet and monitor BP away from here. Has been getting headaches. Check BP when has headaches and call if needs to be seen for BP. [id number] Gemma Morales MD [facility] Lanie llyany [address] [place] [address] [place] [address] 09/18/2022 08:50:45 09/18/2022 09:28:02 Chronic low back pain 017795523 M54.50 [id number] Gemma Morales MD [facility] [address] [place] [address] 09/26/2022 10:10:45 10/15/2022 15:34:54 Chronic low back pain 434444699 M54.50 [id number] Gemma Morales MD [facility] Lanie yeung [address] [place] [address] 12/16/2022 09:37:10 12/16/2022 10:06:30 Chronic neck pain 4700732299 107 M54.2 Paresthesi a of upper limb 20490080 R20.2 May need to see hand surgeon Left inguinal hernia 236 419942 K40.90 Chronic low back pain 27 2903057 M54.50 Will increase to #120 of codeine at next med refill. [id number] Brandin hung MD [facility] General Surgery [address] [address] 01/15/2023 11:29:38 01/15/2023 15:05:43 Left inguinal hernia 791635698 K40.90 [id number] Gemma Morales MD [facility] Lanie llyany [facility] [place] [address] 03/27/2023 10:07:20 03/27/2023 11:53:45 Paresthesia of upper limb 00924374 R20.2 Administra tion of pneumococcal vaccine 38585671 Z23 [id number] Gemma Morales MD [facility] Lanie llyany [address] [place] [address] [place] [address] 04/16/2023 11:40:23 04/22/2023 15:04:36 Venous varices 978497171 I86.8 Obstructiv e sleep apnea syndrome 78698456 G47.33 Essential hypertension 90436920 I10 [id number] Gemma Morales MD [facility] Lanie yeung [address] [place] [address] 05/08/2023 09:11:07 05/08/2023 09:37:31 Chronic low back pain 806601526 M54.50 Allergic rhinitis 301106 04 J30.9 Anxiety 36290102 F41.9 Chronic back pain 221099 002 G89.29 Chronic neck pain 790250 7338 107 M54.2 Essential hypertension 73023269 I10 Hypercholesterolemia 136 11698 E78.00 Spinal stenosis 34170618 M48.00 Vitamin D deficiency 347 41793 E55.9 Venous varices 504170116 I86.8 [id number] Gemma Morales MD [facility] [address] [place] [address] 06/05/2023 09:51:00 06/05/2023 10:34:14 Chronic low back pain 609085395 M54.50 Eczema 28266554 L30.9 Allergic rhinitis 454096 04 J30.9 Anxiety 64586937 F41.9 Complex renal cyst 70964 1001 N28.1 Depressive disorder 3548 9007 F32.A Essential hypertension 19233008 I10 Obstructiv e sleep apnea syndrome 48891433 G47.33 Spinal stenosis 51734991 M48.00 Venous varices 284722135 I86.8 Vitamin B1 2 deficiency (non anemic) 38762134 E53.8 Vitamin D deficiency 347 41866 E55.9 [id number] Gemma Morales MD [facility] [address] [place] [address] 06/19/2023 11:12:51 07/02/2023 10:33:36 Vitamin B12 deficiency (non anemic) 47445367 E53.8 Allergic rhinitis 786779 04 J30.9 Anxiety 33039183 F41.9 Chronic back pain 022427 002 G89.29 Chronic neck pain 842683 1628 107 M54.2 Depressive disorder 3548 9007 F32.A Essential hypertension 85657653 I10 Hypercholesterolemia 136 79651 E78.00 Obstructiv e sleep apnea syndrome 71147572 G47.33 Spinal stenosis 40265569 M48.00 Venous varices 138604606 I86.8 Vitamin D deficiency 347 99615 E55.9 [id number] Prasanna Hoang MD [address] [place] [address] 12/01/2023 11:16:10 12/21/2023 15:02:02 Chronic back pain 204396157 G89.29 [id number] Prasanna Hoang MD [address] [place] [address] 01/15/2024 11:11:54 01/15/2024 11:57:22 Administration of influenza vaccine 62038279 Z23 Nicotine dependence 5629 4008 F17.200 Vitamin D deficiency 347 65200 E55.9 Vitamin B1 2 deficiency (non anemic) 84945791 E53.8 History of nicotine dependence 2778148457 99157291 Z87.891 Administra tion of viral vaccine 93178396 Z23 Chronic neck pain 016957 8366 107 M54.2 Depressive disorder 3548 9007 F32.A Essential hypertension 96683960 I10 Obstructiv e sleep apnea syndrome 55498960 G47.33 Spinal stenosis 71914030 M48.00 Adult heal th examination 115022426 Z00.00 Allergic rhinitis 771942 04 J30.9 Anxiety 05594553 F41.9 Chronic low back pain 27 3243977 M54.50 Hypokalemia 46921236 E87 .6 Venous varices 309237521 I86.8 [id number] Prasanna Hoang MD [address] [address] 03/02/2024 11:02:51 03/02/2024 12:08:57 Chronic low back pain 009792916 M54.50 [id number] Prasanna Hoang MD [address] [address] 04/18/2024 14:15:39 04/18/2024 14:52:31 Loss of teeth due to extraction 27494314 K08.409 Chronic low back pain 27 5730839 M54.50 Administra tion of viral vaccine 23697657 Z23 Long-term current use of opiate analgesic drug 0058775083 34443 Z79.971 [id number] Prasanna Hoang MD [address] [address] 07/19/2024 13:56:25 07/19/2024 14:38:11 Left inguinal hernia 450165511 K40.90 [id number] Prasanna Hoang MD [address] [address] 08/16/2024 16:16:59 08/16/2024 16:49:11 Spinal stenosis in cervical region 41068232 M48.02 Stenosis o f intervertebral foramina 8072192864 09 M48.02 Cervical spondylosis 387 227300 M47.22 Thoracic spondylosis 387 522037 M47.814 Chronic ba ck pain greater than three months duration 4050340685 02 M54.9 G89.29 Cont f/u with spine surgeon. Neuropathy 236565899 G60 .9 Benign hypertension 1072 5009 I10 Mixed hyperlipidemia 267 970358 E78.2 Coronary arteriosclerosis 78366501 I25.10 Cont f/u with cardio. Pain of knee region 1003 646785 M25.561 M25.562 G89.29 Cont f/u with ortho. Chronic depression 13644 0009 F32.A Chronic ob structive pulmonary disease 67255762 J44.9 Cigarette smoker 8270134 7 F17.210 Left inguinal hernia 236 878129 K40.90 Cont f/u with surg. Health Concerns Section Related Observation LastModified by Organization Detai ls LastModified Time None Recorded Concern Status LastModified by Organization Details LastModified Time None Recorded Advance Directives Directive None Recorded Payers Encounter Date Sequence Insurance Name Policy Number Policy Musa Covered Member ID Musa Member ID Guarantor Name 01/15/2024 1 [facility] [id number] Cisco Manzo [id number] Cisco Manzo 03/02/2024 1 [facility] [id number] Cisco Manzo [id number] Cisco Manzo 04/18/2024 1 [employer] 000 Cisco Manzo [id number] Cisco Manzo 07/19/2024 1 [place] Cisco Manzo [id number] Cisco Manzo 08/16/2024 1 [place] Cisco Manzo [id number] Cisco Manzo Notes Date Note Type Note Provider Name and Address Organization Details Recorded Time 01/15/2024 text/html not due for pneumovax till March . one year after his prevnar 13 vaccine . RAVI Barber [address], [place], [address], [place] 01/18/2024 16:18:14 03/02/2024 text/html 7 teeth being pulled in March. lbp , no worse , toradol injections help . is not taking NSAIds RAVI Barber [address], [place], [address], [employer] 03/19/2024 16:03:36 04/18/2024 text/html needs second shingles vaccine . RAVI Barber [address], [place], [address], [employer] 04/22/2024 12:40:42 07/19/2024 text/html left inguinal hernia . trying not to take pain pills RAVI Barber [address], [place], [address], [employer] 07/25/2024 11:46:01 08/16/2024 text/html Pt is here to establish his care with me. Doing overall well with current meds. Denies any problem with meds. Pt is f/u with Surgeon for his Lt inguinal hernia and will be going for surgery with them on 08/23/24. Pt has chronic neck and back pain and he has seen spine surgeon and got c-spine surgery with them last year. Pt doesn't want to do any procedure for his chronic low back pain. Denies any incontinence. Pt is f/u with Ortho for his chronic b/l knee pain and got steroid shots with them. Pt is f/u with Cardio for his CAD and HTN and is on meds by them. Prasanna Hoang MD [address], [place], [address], [place] [facility] 08/16/2024 17:00:40
--- OUTSIDE RECORDS SUMMARY | 2024-08-20 06:40 | XMS_ITS | Encounter Summary ---
Author Organization [facility] Address [address] [place] [address] Phone Care Team Providers Care Employment Specialist Name Role Phone Kailash Peres APRN, [employer]ESS SUPERVISOR Primary Care Pro vider Aki Hanson MD Unavailable Reason for Visit * Reason Comments Medication Refill Encounter Details Date Type Department Care Team (Late st Contact Info) Description 08/17/2023 Refill [facility] [address] [address] Aki Hanson MD [address] [place] [phone] Medication Refill Social History Tobacco Use Types Packs/Day Years Used Date Smoking Tobacco: Every Day Cigarettes Smokeless Tobacco: Never Alcohol Use Standard Drinks/Week Comments Not Currently 0 (1 standard drink = 0.6 oz pur e alcohol) Sex and Gender Information Value Date Recorded Sex Assigned at Not on file 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
--- NOTE | 2024-08-20 07:16 | ECG_ITS ---
Test Date: 2024-08-20 07:27:13 Measurements Intervals [place] Rate: 58 P: 63 HI: 146 QRS: -1 QRSD: 87 T: 40 QT: 404 QTc: 397 Interpretive Statements SINUS BRADYCARDIA PREVIOUS ANTERIOR INFARCTION NONSPECIFIC ST AND T-WAVE ABNORMALITY ABNORMAL ECG No previous ECG available for comparison Electronically Signed On 08-20-2024 07:47:02 CDT by Benja May M.D.
== END 2024-08-20 06:37 | disposition home or self-care (01) ==
LOC: ANHLAB 06:38
PROVIDERS: PCP Family Medicine; Visit Provider Anesthesiology
DX: Z01.818 Encounter for other preprocedural examination (principal); K40.20 Bilateral inguinal hernia, without obstruction or gangrene, not specified as recurrent; I25.10 Atherosclerotic heart disease of native coronary artery without angina pectoris; I10 Essential (primary) hypertension; E78.00 Pure hypercholesterolemia, unspecified; F17.210 Nicotine dependence, cigarettes, uncomplicated; R94.31 Abnormal electrocardiogram [ECG] [EKG]
CPT/HCPCS: 36415; 86850; 86900; 86901; 93005

== ENCOUNTER 2024-08-23 02:10 | Day surgery (SDC) | payer BC, SELFPAY ==
[2024-08-19 09:21] VITALS: BMI 25.4
--- NOTE | 2024-08-19 09:28 | PC.NURSE ---
Report to the Outpatient Waiting Room, entrance under the green pavilion located off [facility], at time _0900_ on date _[id number]_. Planned Procedure Time: _1100_.? Time changes happen often and if your time is changed the preop area will call you the afternoon before. - You and your visitor will be asked to self-screen and do not enter if you have any COVID symptoms. Please call surgeon if you need to reschedule. - A mask is optional within the hospital at this time. Patients may have clear liquids (water, carbonated beverages, clear teas, apple juice) until 3 hours prior to surgery with a maximum of 20 ounces. - No food from midnight until time of surgery and no smoking, or chewing tobacco (or any form of nicotine). No chewing gum, candy or mints. Take only the following medications with a SIP of water on the morning of surgery: ___Carvidilol, Isosorbide, Citalopram, Gabapentin, and Trelegy.__ DO NOT STOP ANY OF YOUR OTHER PRESCRIPTION MEDICATIONS PRIOR TO SURGERY EXCEPT THE FOLLOWING Hold all vitamins and supplements for 3 days per anesthesiologist. Medications to discontinue per physician ___Please call Dr Nieto's office about Brilinta and when to hold.___ Date to take last dose Please no make-up, nail australian, hairspray, perfume, deodorant, or body powder the day of surgery.? No jewelry (including any body piercings) or valuables the day of surgery, leave them at home.? Please take a shower or bath the night before, or the morning of, surgery with an antibacterial soap.? Wear comfortable, loose fitting clothing. - Jewelry must be removed prior to entering the operating room.? Rings and piercings that are not removed may be cut off. - The hospital will not accept responsibility for valuables.? - Please leave all valuables, including medications, at home the day of surgery. If you are going home after surgery, a licensed flatbed company driver must drive you home.? - NO public transportation without another adult if you receive anesthesia. - We recommend that an adult stay with you for 24 hours following discharge. - We also recommend that you do not drive, make important decision, drink alcoholic beverages, or take any drugs that were not prescribed by your health care provider for at least 24 hours after your discharge time. Follow any additional instructions given to you from your surgeon. Telephone instructions given to __Earl___and asked if any additional questions and then verbalized understanding. Patient advised to call surgeon office or pre surgery nurse liaison [phone] if any additional questions.
[2024-08-23] VITALS (11 sets, daily range): BP systolic 116–148; BP diastolic 79–89; PULSE 55–74; RESP 12–18; TEMP 36.5–37.2; O2SAT 90–99
--- OUTSIDE RECORDS SUMMARY | 2024-08-23 02:14 | XMS_ITS | Data Portability ---
Author Organization [place] - [facility], Main Office Address [address] [place] [address] Care Team Providers Care Clerical Administrative Assistant Name Role Phone PRASANNA HOANG Primary Care Provider Assessment No assessment recorded. Plan of Treatment Reminders Order Date Submit Date Provider Last Modified By Organization Details Last Modified Time Details Appointments Physical/ Annual Wellness 30 2024 04:00P M Prasanna Hoang MD Not available Not available Not available Lab drug screen, urine 2024 025 [facility] ([facility] [address] [place], [address], 04/18/2024 14:50:33 Referral general surgeon referral - Please call patient to schedule an appointme nt. Thank you. 2024 025 ATHENA[facility] Kevin Nieto DO, [address], [address], [place], [address], 07/26/2024 11:52:26 Procedures None recorded. Surgeries None recorded. Imaging LDCT, chest, for lung cancer screening - 2 packs per day since age 17 ,48 years Please call pt to schedule 2023 024 [facility], [address], [place], [address], 02/03/2024 11:55:48 Medication Orders citalopra m 40 mg tablet 2024 025 [facility] [address] In [facility], [address] [place] [address], [address], 08/16/2024 16:58:47 Depo-Medr ol 80 mg/mL suspensio n for injection 2024 025 [email or web address] Not available 08/16/2024 16:18:08 prednison e 20 mg tablet 2024 025 [facility] [id number], [address], 08/16/2024 16:18:26 acetamino phen 300 mg-codein e 60 mg tablet 2024 025 [facility] [id number], [address], 04/18/2024 14:38:56 ketorolac 60 mg/2 mL intramusc ular solution 2023 024 [email or web address] Not available 08/16/2024 16:18:39 Patient TargetsNo targets [...] adolfo No observ ation record ed. [email or web address] [facility] [address], [place], [address], 03/17/2024 15:32:09 03/17/20 24 02/03/2024 LDCT, chest , for lung cance r scree adolfo No observ ation record ed. [email or web address] [facility] [address], [place], [address], 08/16/2024 16:46:56 07/10/19 25 07/08/2024 imagi ng/di agnos tic resul t No observ ation record ed. [email or web address] [facility] [address], [place], [address], 08/16/2024 16:34:16 Result Notes None recorded. Problems Name Problem SNOMED Code Status Onset Date Resolution Date Notes Provider Name and Address Organization Details Recorded Time Hyperchol esterolem ia 73915165 Active 2018 Not Available [facility] 3 06:22:49 Chronic low back pain 555609689 Active 2018 Not Available [facility] 3 06:22:49 History of heroin abuse 24315595320 9105 Active 2018 Not Available [facility] 3 06:22:49 Diverticu litis 988732051 Active 2018 Not Available [facility] 3 06:22:49 Vitamin D deficienc y 99959674 Active 2018 Not Available [facility] 3 06:22:49 Depressiv e disorder 34842436 Active 2018 Not Available [facility] 3 06:22:49 Hypokalem ia 81014824 Active 2018 Not Available [facility] 3 06:22:49 Anxiety 82663546 Active 2018 Not Available [facility] 3 06:22:49 Bradycard ia 64249304 Active 2018 Not Available [facility] 3 06:22:49 Essential hypertens ion 76872487 Active 2018 Not Available [facility] 3 06:22:49 Allergic rhinitis 47924983 Active 2018 Not Available [facility] 3 06:22:49 Eustachia n tube disorder 77566090 Active 2018 Not Available [facility] 3 06:22:49 Prediabet es 348094581 Active 2018 Not Available [facility] 3 06:22:49 Complex renal cyst 898912084 Active 2018 Not Available [facility] 3 06:22:49 Spinal stenosis 94927024 Active 2018 Not Available [facility] 3 06:22:49 Obstructi ve sleep apnea syndrome 36349750 Active 2018 Not Available [facility] 3 06:22:49 Thrombose d external hemorrhoi ds 03587088 Active 2022 Not Available [facility] 3 06:22:49 Venous varices 932793806 Active 2022 Not Available [facility] 3 06:22:49 Chronic neck pain 02908742554 07 Active 2022 Not Available [facility] 3 06:22:49 Paresthes ia of upper limb 32292508 Active 2022 Not Available [facility] 3 06:22:49 Left inguinal hernia 450482207 Active 2022 Prasanna Hoang MD [address], [address], [place], [address] , [facility] 5 16:55:13 Chronic back pain 591440495 Active 2022 Not Available [facility] 3 06:22:49 Pain in right hand 29893206782 9109 Active 2022 Nisha Mitchell CMA null, [place] [facility] 3 15:23:18 Pain of bilateral hands 46773389308 812220 Active 2022 Nisha Mitchell CMA null, [place] [facility] 3 15:41:36 Dyspnea 150090371 Active 2022 RAVI Barber [address], [address], [place], [address] , [facility] 3 17:30:00 Administr ation of pneumococ dion vaccine Active 2023 RAVI Barber [address], [address], [place], [address] , [facility] 4 10:48:31 Eczema 17960735 Active 2023 RAVI Barber [address], [address], [place], [address] , [facility] [employer] [facility] 4 10:13:00 Vitamin B12 deficienc y (non anemic) 77438837 Active 2023 Briseida Iglesias RN null, [facility] [employer] [facility] 4 11:29:37 Nicotine dependenc e 30023628 Active 2023 RAVI Barber [address], [address] [employer], [place], [address] , [facility] [employer] [facility] 4 11:46:05 Harmful pattern of use of nicotine 407310095 Active 2023 RAVI Barber [address], [address] [employer], [place], [address] , [facility] [employer] [facility] 4 11:53:03 Administr ation of Varicella -zoster vaccine for shingles Active 2023 RAVI Barber [address] [employer], [place], [address] , [facility] [employer] [facility] 4 11:54:46 Adult health examinati on Active 2023 RAVI Barber [address], [employer], [place], [address] , [facility] 4 16:12:21 Extractio n Active 2024 RAVI Barber [address] [employer], [place], [address] , [facility] [employer] [facility] [facility] 5 09:37:51 Loss of teeth due to extractio n 89218329 Active 2024 RAVI Barber [address], [employer], [place], [address] , [facility] 5 09:40:29 Axonal sensorimo tor neuropath y 816922285 Active 2024 see nerve conductio n /emg 06/14 RAVI Barber [address], [address], [place], [address] , [place] [facility] 5 12:39:42 Spinal stenosis in cervical region 29360425 Active 2024 Prasanna Hoang MD [address], [address], [place], [address] , [place] [facility] 5 16:21:29 Stenosis of intervert ebral foramina 56559502758 9 Active 2024 Prasanna Hoang MD [address], [address], [place], [address] , [place] [facility] 5 16:21:33 Cervical spondylos is 264872678 Active 2024 Prasanna Hoang MD [address], [address], [place], [address] , [place] [facility] 5 16:21:47 Thoracic spondylos is 935499850 Active 2024 Prasanna Hoang MD [address], [address], [place], [address] , [place] [facility] [employer] [facility] 5 16:21:58 Chronic back pain greater than three months duration 74716086940 2 Active 2024 Prasanna Hoang MD [address], [address], [place], [address] , [place] [facility] 5 16:22:13 Neuropath y 029028870 Active 2024 Prasanna Hoang MD [address], [address], [place], [address] , [place] [facility] 5 16:22:32 Benign hypertens ion 72777897 Active 2024 Prasanna Hoang MD [address], [address], [place], [address] , [place] [facility] 5 16:22:41 Mixed hyperlipi demia 753836268 Active 2024 Prasanna Hoang MD [address], [place], [address] , [employer] [employer] 5 16:22:47 Coronary arteriosc lerosis 67118681 Active 2024 Prasanna Hoang MD [address], [address], [place], [address] , [employer] [facility] [employer] 5 16:35:58 Pain of knee region 8241450471 Active 2024 Prasanna Hoang MD [address], [address], [place], [address] , [employer] [facility] [employer] 5 16:36:20 Chronic depressio n 632642817 Active 2024 Prasanna Hoang MD [address], [address], [place], [address] , [employer] [facility] [employer] 5 16:40:23 Chronic obstructi ve pulmonary disease 10675922 Active 2024 Prasanna Hoang MD [address], [address], [place], [address] , [employer] [facility] [employer] 5 16:44:07 Cigarette smoker 51315332 Active 2024 Prasanna Hoang MD [address], [address], [place], [address] , [employer] [facility] [employer] 5 16:44:39 Problem Notes None recorded. Procedures Surgical History Date Name Laterality Status Provider Name and Address Organization Details Recorded Time 5 Smoking Cessation completed Prasanna Hoang MD [address], [address], [place], [address], [employer] [facility] [employer] 08/16/2024 16:55:35 4 Neck spine disk surgery completed Bharti Oliveira RN [place] [facility] [employer] 01/15/2024 11:27:06 3 Carpal tunnel surgery completed Ivone Haider MA [facility] 03/27/2023 10:18:45 03/10/202 3 I&D completed Gemma Morales MD [address] [facility], [facility] [address], [place], [address], [facility] [employer] [facility] 05/30/2022 16:26:39 Imaging Results None recorded. Procedure Notes None recorded. Medical Equipment None Reported. Allergies Allergen ID Allergen Name Allergen Category Reaction Reaction Severity Criticality Documentation Date Start Date Code Code System Note Provider Name and Address Organization Details Recorded Time 49890 tramadol medicatio n Not available Not available Not available 05/21/2022 06947 RxNorm Not Available [facility] 3 20:27:48 94201 honey bee venom medicatio n Not available Not available Not available 05/21/2022 70892 7 RxNorm Not Available [facility] 3 20:27:48 Medications Name Sig Start Date [...] DateTime 01/27/202 5 180.34 cm 26.1 kg/m2 75301.7 7 g 98 [degF] 84 /min 98 % 98 % 112 mm[Hg] 80 mm[Hg] Vianney Mckeon CMA [facility] [employer] [facility] 5 14:28:08 Date Recorded Body height Body mass index (BMI) Body weight Body temperature Systolic blood pressure Diastolic blood pressure Provider Name and Address Organization Details Last Updated DateTime 5 180.34 cm 25.2 kg/m2 40536.2 2 g 98.2 [degF] 150 mm[Hg] 88 mm[Hg] Lula Morejon [facility] [employer] [facility] 5 14:07:40 Date Recorded Body height Body mass index (BMI) Body weight Body temperature Oxygen saturation Oxygen saturation in Arterial blood by Pulse oximetry Heart rate Systolic blood pressure Diastolic blood pressure Provider Name and Address Organization Details Last Updated DateTime 5 180.34 cm 25.3 kg/m2 07647.6 7 g 97.2 [degF] 95 % 95 % 59 /min 138 mm[Hg] 82 mm[Hg] Tiffany Che RN [facility] [facility] 5 16:31:16 Date Recorded Body height Body mass index (BMI) Body weight Body temperature Heart rate Oxygen saturation Oxygen saturation in Arterial blood by Pulse oximetry Systolic blood pressure Diastolic blood pressure Provider Name and Address Organization Details Last Updated DateTime 4 180.34 cm 27.1 kg/m2 94312.9 2 g 97.8 [degF] 66 /min 96 % 96 % 140 mm[Hg] 92 mm[Hg] Bharti Oliveira RN [facility] [facility] 4 11:33:07 Date Recorded Body height Body mass index (BMI) Body weight Body temperature Heart rate Oxygen saturation Oxygen saturation in Arterial blood by Pulse oximetry Systolic blood pressure Diastolic blood pressure Provider Name and Address Organization Details Last Updated DateTime 4 180.34 cm 26.8 kg/m2 03867.7 4 g 97.4 [degF] 58 /min 99 % 99 % 160 mm[Hg] 110 mm[Hg] Bharti Oliveira RN [facility] [employer] [facility] 4 11:12:59 Social History Question Answer Notes LastModified by [employer] Details LastModified Time Tobacco Smoking Status Current Every Day Smoker Not Available [facility] 05/21/2022 20:24:03 In The 14 Days Before Symptom Onset, Have You Had Close Contact With A Laboratory-confirm ed COVID-19 While That Case Was Ill? No [id number] Information not available 05/21/2022 In The 14 Days Before Symptom Onset, Have You Had Close Contact With A Person Who Is Under Investigation For COVID-19 While That Person Was Ill? No [id number] Information not available 05/21/2022 How Much Tobacco Do You Smoke? 1 PPD [id number] Information not available 05/21/2022 How Many Years Have You Smoked Tobacco? 43 [id number] Information not available 05/21/2022 Sex: Unknown Functional Status Question Answer Note LastModified by Organizat [employer] Details LastModified Time What is your level of alcohol consumption? None [id number] Information not available 05/21/2022 Mental Status None recorded. Family History Relationship Description Onset Age of this Age Resolved Age Notes LastModified by Organization Details LastModified Time Father Family history of malignant neoplasm [id number] Not available 05/21/2022 20:24:13 Mother Family history of malignant neoplasm [id number].025 [id number] Not available 05/21/2022 20:24:13 Maternal Grandmother Family history of malignant neoplasm [id number] Not available 05/21/2022 20:24:13 Medical History No medical history recorded. Immunizations Vaccine Type Date Status Note Provider Nam e and Address Organization Details Recorded Time Influenza, split virus, quadrivalent, preservative 2 completed Prasanna Hoang MD [address], [place] [address], [place], [address], [facility] 08/16/2024 16:57:32 Influenza, split virus, quadrivalent, preservative 1 completed Prasanna Hoang MD [address], [address], [place], [address], [facility] 08/16/2024 16:57:32 influenza, unspecified formulation 3 completed Kaylan alberto, [facility] [facility] 01/27/2023 12:15:53 Influenza, split virus, quadrivalent, preservative 7 completed Prasanna Hoang MD [address], [address], [place], [address], [facility] [employer] [facility] [facility] 08/16/2024 16:57:32 Influenza, MDCK, quadrivalent, preservative 1 completed Prasanna Hoang MD [address], [address], [place], [address], [facility] [employer] [facility] 08/16/2024 16:57:32 pneumococcal polysaccharide PPV23 9 completed Prasanna Hoang MD [address], [address], [place], [address], [facility] [employer] [facility] 08/16/2024 16:57:32 Tdap 7 completed Prasanna Hoang MD [address], [address], [place], [address], [employer] [facility] [employer] [facility] 08/16/2024 16:57:32 Tdap 9 completed Prasanna Hoang MD [address], [address], [place], [address], [employer] [facility] 08/16/2024 16:57:32 Influenza, split virus, trivalent, preservative 5 completed Prasanna Hoang MD [address], [address], [place], [address], [employer] [facility] 08/16/2024 16:57:32 Influenza, split virus, quadrivalent, PF 9 completed Prasanna Hoang MD [address], [address], [place], [address], [facility] [employer] [facility] 08/16/2024 16:57:32 Influenza, split virus, quadrivalent, PF 2 completed Prasanna Hoang MD [address], [address], [place], [address], [email or web address] 08/16/2024 16:57:32 Pneumococcal conjugate PCV 13 4 completed RAVI Barber [address], [address], [place], [address], [email or web address] 03/29/2023 13:18:24 Influenza, split virus, trivalent, PF 4 completed RAVI Barber [address], [address], [place], [address], [email or web address] 01/18/2024 16:07:43 zoster recombinant 4 completed RAVI Barber [address], [address], [place], [address], [employer] [facility] 01/18/2024 16:07:43 Past Encounters Encounter ID Performer Location Encounter Start Date Encounter Closed Date Diagnosis/Indication Diagnosis SNOMED-CT Code Diagnosis ICD10 Code Diagnosis Note [id number] Gemma Morales MD [facility] [place] [address] [place] [address] [place] [address] 06/27/2020 00:00:00 06/28/2020 06:26:35 [id number] Gemma Morales MD [facility] [place] [address] [place] [address] [place] [address] 10/08/2020 00:00:00 10/08/2020 22:33:20 [id number] Gemma Morales MD [facility] [place] [address] [place] [address] [place] [address] 12/10/2020 00:00:00 12/11/2020 06:18:29 [id number] Gemma Morales MD [facility] [place] [address] [place] [address] [place] [address] 01/08/2021 00:00:00 01/08/2021 13:56:40 [id number] Gemma Morales MD [facility] [place] [address] [place] [address] 01/16/2021 00:00:00 01/16/2021 21:11:35 [id number] Gemma Morales MD [facility] [place] [address] [place] [address] 02/13/2021 00:00:00 02/13/2021 20:40:22 [id number] Gemma Morales MD [facility] [place] [address] [place] [address] 04/17/2021 00:00:00 04/18/2021 06:06:24 [id number] Gemma Morales MD [facility] [place] [address] [place] [address] 05/15/2021 00:00:00 05/15/2021 19:21:10 [id number] Gemma Morales MD [facility] [place] [address] [place] [address] 05/29/2021 00:00:00 05/29/2021 20:35:07 [id number] Gemma Morales MD [facility] [place] [address] [place] [address] 06/19/2021 00:00:00 06/19/2021 19:06:46 [id number] Gemma Morales MD [facility] [place] [address] [place] [address] 07/09/2021 00:00:00 07/09/2021 10:33:10 [id number] Gemma Morales MD [facility] [place] [address] [place] [address] 09/12/2021 00:00:00 09/12/2021 21:52:58 [id number] Gemma Morales MD [facility] [place] Count includes the [facility] [place] [address] 11/05/2021 00:00:00 11/05/2021 20:27:08 [id number] Gemma Morales MD [facility] [place] Count includes the [facility] [place] [address] 12/10/2021 00:00:00 12/11/2021 06:54:40 [id number] Gemma Morales MD [facility] [place] [address] [place] [address] [place] [address] 04/02/2022 00:00:00 04/02/2022 10:18:28 [id number] Gemma Morales MD [facility] Lanie yeung [address] [place] [address] [place] [address] 05/30/2022 11:16:13 05/30/2022 11:54:45 Thrombosed external hemorrhoids 44836821 K64.5 I&D of hemorrhoid done [id number] Gemma Morales MD [facility] Lanie llyany [address] [place] [address] [place] [address] 07/22/2022 09:35:28 07/22/2022 10:02:22 Venous varices 699544102 I86.8 Heat and elevation and tylenol Needs a note off from work for tonight. Essential hypertension 47192401 I10 Has not taken BP meds today. Needs to watch salt in diet and monitor BP away from here. Has been getting headaches. Check BP when has headaches and call if needs to be seen for BP. [id number] Gemma Morales MD [facility] L[place] llyany [address] [place] [address] [place] [address] 09/18/2022 08:50:45 09/18/2022 09:28:02 Chronic low back pain 735359116 M54.50 [id number] Gemma Morales MD [facility] [place] [address] [place] [address] 09/26/2022 10:10:45 10/15/2022 15:34:54 Chronic low back pain 939214779 M54.50 [id number] Gemma Morales MD [facility] [address] [place] [address] 12/16/2022 09:37:10 12/16/2022 10:06:30 Chronic neck pain 1798102669 107 M54.2 Paresthesi a of upper limb 51307455 R20.2 May need to see hand surgeon Left inguinal hernia 236 966684 K40.90 Chronic low back pain 27 9860401 M54.50 Will increase to #120 of codeine at next med refill. [id number] Brandin hung MD [facility] General Surgery [address] [address] 01/15/2023 11:29:38 01/15/2023 15:05:43 Left inguinal hernia 275246062 K40.90 [id number] Gemma Morales MD [facility] Lanie llyany Count includes the [facility] [place] [address] 03/27/2023 10:07:20 03/27/2023 11:53:45 Paresthesia of upper limb 33527266 R20.2 Administra tion of pneumococcal vaccine 45859811 Z23 [id number] Gemma Morales MD [facility] Lanie llyany [address] [place] [address] [place] [address] 04/16/2023 11:40:23 04/22/2023 15:04:36 Venous varices 237800866 I86.8 Obstructiv e sleep apnea syndrome 24997174 G47.33 Essential hypertension 40573870 I10 [id number] Gemma Morales MD [facility] L[address] [place] [address] 05/08/2023 09:11:07 05/08/2023 09:37:31 Chronic low back pain 533455061 M54.50 Allergic rhinitis 672471 04 J30.9 Anxiety 61724949 F41.9 Chronic back pain 705554 002 G89.29 Chronic neck pain 811953 0569 107 M54.2 Essential hypertension 61309711 I10 Hypercholesterolemia 136 63588 E78.00 Spinal stenosis 18564757 M48.00 Vitamin D deficiency 347 57994 E55.9 Venous varices 973778611 I86.8 [id number] Gemma Morales MD [facility] [address] [place] [address] 06/05/2023 09:51:00 06/05/2023 10:34:14 Chronic low back pain 616345585 M54.50 Eczema 45344876 L30.9 Allergic rhinitis 065571 04 J30.9 Anxiety 50566167 F41.9 Complex renal cyst 28374 1001 N28.1 Depressive disorder 3548 9007 F32.A Essential hypertension 70214570 I10 Obstructiv e sleep apnea syndrome 15405060 G47.33 Spinal stenosis 06375573 M48.00 Venous varices 840228016 I86.8 Vitamin B1 2 deficiency (non anemic) 59782237 E53.8 Vitamin D deficiency 347 44934 E55.9 [id number] Gemma Morales MD [place] [address] [place] [address] 06/19/2023 11:12:51 07/02/2023 10:33:36 Vitamin B12 deficiency (non anemic) 79579812 E53.8 Allergic rhinitis 712078 04 J30.9 Anxiety 69466031 F41.9 Chronic back pain 016051 002 G89.29 Chronic neck pain 064481 3406 107 M54.2 Depressive disorder 3548 9007 F32.A Essential hypertension 61479904 I10 Hypercholesterolemia 136 27808 E78.00 Obstructiv e sleep apnea syndrome 79868948 G47.33 Spinal stenosis 45559243 M48.00 Venous varices 395687417 I86.8 Vitamin D deficiency 347 16050 E55.9 [id number] Prasanna Hoang MD [address] [address] [place] [address] 12/01/2023 11:16:10 12/21/2023 15:02:02 Chronic back pain [id number] G89.29 [id number] Prasanna Hoang MD [address] [place] [address] 01/15/2024 11:11:54 01/15/2024 11:57:22 Administration of influenza vaccine 90797654 Z23 Nicotine dependence 5629 4008 F17.200 Vitamin D deficiency 347 28306 E55.9 Vitamin B1 2 deficiency (non anemic) 86181481 E53.8 History of nicotine dependence [id number] 89769921 Z87.891 Administra tion of viral vaccine 97186409 Z23 Chronic neck pain 636029 9357 107 M54.2 Depressive disorder 3548 9007 F32.A Essential hypertension 33680021 I10 Obstructiv e sleep apnea syndrome 99097101 G47.33 Spinal stenosis 36076037 M48.00 Adult heal th examination 451118511 Z00.00 Allergic rhinitis 775126 04 J30.9 Anxiety 16887651 F41.9 Chronic low back pain 27 5817130 M54.50 Hypokalemia 82032426 E87 .6 Venous varices 403621888 I86.8 [id number] Prasanna Hoang MD [address] [address] 03/02/2024 11:02:51 03/02/2024 12:08:57 Chronic low back pain 739977597 M54.50 [id number] Prasanna Hoang MD [address] [address] 04/18/2024 14:15:39 04/18/2024 14:52:31 Loss of teeth due to extraction 40390054 K08.409 Chronic low back pain 27 1123128 M54.50 Administra tion of viral vaccine 59930619 Z23 Long-term current use of opiate analgesic drug 1223085472 06592 Z79.161 [id number] Prasanna Hoang MD [address] [address] 07/19/2024 13:56:25 07/19/2024 14:38:11 Left inguinal hernia 732154653 K40.90 [id number] Prasanna Hoang MD [address] [address] 08/16/2024 16:16:59 08/16/2024 16:49:11 Spinal stenosis in cervical region 75005297 M48.02 Stenosis o f intervertebral foramina 3178942251 09 M48.02 Cervical spondylosis 387 110403 M47.22 Thoracic spondylosis 387 126458 M47.814 Chronic ba ck pain greater than three months duration 8075303926 02 M54.9 G89.29 Cont f/u with spine surgeon. Neuropathy 664940533 G60 .9 Benign hypertension 1072 5009 I10 Mixed hyperlipidemia 267 372209 E78.2 Coronary arteriosclerosis 34858965 I25.10 Cont f/u with cardio. Pain of knee region 1003 263050 M25.561 M25.562 G89.29 Cont f/u with ortho. Chronic depression 69338 0009 F32.A Chronic ob structive pulmonary disease 29071915 J44.9 Cigarette smoker 1450136 7 F17.210 Left inguinal hernia 236 989789 K40.90 Cont f/u with surg. Health Concerns Section Related Observation LastModified by Organization Detai ls LastModified Time None Recorded Concern Status LastModified by Organization Details LastModified Time None Recorded Advance Directives Directive None Recorded Payers Encounter Date Sequence Insurance Name Policy Number Policy Musa Covered Member ID Musa Member ID Guarantor Name 01/15/2024 1 [facility] [id number] Cisco Manzo [id number] Cisco Manzo 03/02/2024 1 [facility] [id number] Cisco Manzo [id number] Cisco Manzo 04/18/2024 1 [place] Cisco Manzo [id number] Cisco Manzo 07/19/2024 1 [place] [employer] Manzo [id number] Cisco Manzo 08/16/2024 1 [place] Cisco Manzo [id number] Cisco Manzo Notes Date Note Type Note Provider Name and Address Organization Details Recorded Time 01/15/2024 text/html not due for pneumovax till March . one year after his prevnar 13 vaccine . RAVI Barber [address], [place], [address], [employer] 01/18/2024 16:18:14 03/02/2024 text/html 7 teeth being pulled in March. lbp , no worse , toradol injections help . is not taking NSAIds RAVI Barber [address], [place], [address], [employer] 03/19/2024 16:03:36 04/18/2024 text/html needs second shingles vaccine . RAVI Barber [address], [place], [address], [employer] 04/22/2024 12:40:42 07/19/2024 text/html left inguinal hernia . trying not to take pain pills RAVI Barber [address], [place], [address], [employer] 07/25/2024 11:46:01 08/16/2024 text/html Pt is here [...] meds by them. Prasanna Hoang MD [address], [place], [address], [place] - [facility] 08/16/2024 17:00:40
[2024-08-23] MEDS: KETOROLAC 15 MG/ML VIAL (*BKC) IV PUSH (09:48)
[2024-08-23] MEDS: ACETAMINOPHEN 500 MG TABLET 1000 MG PO (09:48)
--- NOTE | 2024-08-23 10:41 | WPDHPUPDATE1 ---
History and Physical Update Update Date/Time: 08/23/24 10:41 History and Physical has been reviewed, including an updated exam of the patient. There are NO changes in the patient's condition. Risks, benefits, and alternatives have been discussed and questions answered. Patient agrees to proceed with procedure.
--- NOTE | 2024-08-23 11:11 | P.PNAN_ITS ---
Anes - Initial Pre Proc Eval Procedure: Operation Date: 08/23/24 11:00 Proposed Procedures p Laparoscopic Bilateral Inguinal Hernia Repair with Mesh, DaVinci Assisted - Kevin Nieto DO Date/Time: 08/23/24 11:11 Surgeon: Kevin Nieto DO Pre Op Diagnosis: Golden Ing Hernias Patient Data Age: 64 Gender: M Height: 1.8 m Weight: 81.8 kg Last Vital Signs Temp 98.9 F 08/23/24 09:30 Pulse 74 08/23/24 09:30 Resp 18 08/23/24 09:30 BP 116/79 08/23/24 09:30 Pulse Ox 98 08/23/24 09:30 O2 Del Method Room Air 08/23/24 09:30 Allergies Allergy/AdvReac Type Severity Reaction Status Date / Time bee venom protein (honey bee) Allergy Severe Anaphylaxis Verified 08/23/24 09:40 tramadol Allergy Unknown Nausea and Verified 08/23/24 09:40 Vomiting Home Medications ?Medication ?Instructions ?Recorded ?Confirmed ?Type acetaminophen 500 mg capsule 500 mg PO Q6H PRN Pain (Scale 03/09/19 08/19/24 History Score 1-3) aspirin 81 mg tablet,delayed 81 mg PO DAILY 03/09/19 08/19/24 History release (Adult Low Dose Aspirin) losartan 50 mg tablet 100 mg PO DAILY 03/09/19 08/23/24 History nitroglycerin 0.4 mg sublingual 0.4 mg sublingual Q5M PRN Chest 03/09/19 08/19/24 History tablet Pain rosuvastatin 20 mg tablet 20 mg PO DAILY 03/09/19 08/19/24 History albuterol sulfate 90 mcg/actuation 2 puff inhalation Q4H PRN 10/06/19 08/19/24 History aerosol inhaler Shortness Of Breath Or Wheezing carvedilol 6.25 mg tablet 12.5 mg PO BID 10/06/19 08/23/24 History isosorbide mononitrate 30 mg 30 mg PO QAM #30 tabs 10/08/19 08/23/24 Rx tablet,extended release 24 hr citalopram 20 mg tablet 40 mg PO DAILY 11/13/21 08/19/24 History gabapentin 300 mg capsule 300 mg PO DAILY 08/01/24 08/23/24 History fluticasone fur. 200 mcg-umeclid 1 inh inhalation DAILY 08/19/24 08/19/24 History 62.5 mcg-vilant 25 mcg inhalat.powder (Trelegy Ellipta) ticagrelor 60 mg tablet (Brilinta) 60 mg PO Q12H 08/19/24 08/19/24 History Patient hx anesthesia problems: none Family hx anesthesia problems: none Results Review: All pre-operative results and documents have been reviewed as part of the pre- operative evaluation. [facility] Past Medical History Medical History (Updated 08/01/24 @ 15:06 by Sandie Nieves [facility]) BPH (benign prostatic hyperplasia) CAD (coronary artery disease) History of heroin use Prediabetes Spinal stenosis Diverticulitis Allergic rhinitis Bradycardia Essential hypertension Eustachian tube disorder Obstructive sleep apnea Intolerant of a CPAP machine Depression Anxiety Hypokalemia Hypercholesterolemia Surgical History Surgical History H/O umbilical hernia repair Status post surgical removal of neoplasm of skin Fatty tumor removed from right arm S/P TURP H/O heart artery stent Drug-eluting stent to the LAD on 01/16/2019 Family History Family History Mother Breast cancer Father Brain tumor Lung cancer Sibling Throat cancer Family history of malignant neoplasm Social History Social History Social History: 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 The patient Lexie Dick smokes marijuana. The patient used to smoke 2 packs of cigarettes a day but now is down to 3/4 of a pack a cigarettes a day. His 2 children and he lives with his and their son and the son's 3 children. He denies any alcohol use. He used heroin in the past has been clean for at least 2 years. He desires to have his is a designated durable power commercial litigation attorney for healthcare and he desires to be full code. Smoking packs per day: 1 Smoking cigarettes per day: 20.0 Years smoked: 48 Smoking pack-years: 48.00 Smoking status: Current every day smoker Tobacco type: cigarettes Alcohol intake: never Substance use: current Substance use type: marijuana and opiates Other substance usage details: former opiate addiction Do You Feel Safe in your Home?: Yes Lack of Transportation: No Lack of Food: Never True Current Housing: I Have Housing Concerned About Future Housing: No Difficulty Paying Gas/Electric Bills: No Difficulty Paying for Meds: No Currently Unemployed: No Education: High School Diploma/GED Difficulty w/ Childcare or Family Care: No Living arrangements: with family Gender identity (if verbalized by the patient): Male Sexual Orientation (if Verbalized by the Patient): Straight or Heterosexual Spiritual care concerns: No Anes - Eval Final PreProcedure Day of Procedure 08/23/24 11:11 Patient weight: normal Heart: regular rate and rhythm Lungs: clear to auscultation Airway: Mallampati scale class II Neurological: alert and oriented Last oral intake: >/= 8 hours ASA classification: III Emergent: no Anesthetic plan: proceed Anesthesia type and monitoring: general ETT and standard monitoring Results Review: All pre-operative results and documents have been reviewed as part of the pre- operative evaluation. Informed Consent: The patient's anesthetic plan and its attendant risks and benefits were discussed with the patient/family/POA. Questions were solicited and answers provided to the satisfaction of the patient/family/POA.
[2024-08-23] MEDS: LACTATED RINGERS 1,000 ML 30 ML IV CONT ×3 (11:15→14:45)
[2024-08-23] MEDS: ceFAZolin 2 GM/D5W 50 ML 2 GM/50 ML BAG IVPB (11:20)
[2024-08-23] MEDS: BUPIVACAINE/EPINEPHRINE 0.5% 50 ML VIAL 30 ML INFILTRATE (12:44)
--- NOTE | 2024-08-23 12:52 | W.PM.PROC2 ---
Procedure Note - Detailed Date of Procedure 08/23/24 Pre-op Diagnosis Bilateral inguinal hernia Post-op Diagnosis Same (Bilateral direct inguinal hernias) Procedure Performed Laparoscopic bilateral inguinal hernia repair with mesh, da Major assisted Surgeon Kevin Nieto DO Anesthesia General and Local (0.5% bupivacaine with epinephrine) Indications This is a 64-year-old man who presented with left groin pain and a bulge for the past 2-3 years. His symptoms have been intermittent and progressing. He had recently been to the emergency department and was found to have a left inguinal hernia on CT. On exam he also had evidence of a right inguinal hernia. Discussions were made with the patient about treatment options and decision was made to proceed with robotic assisted laparoscopic bilateral inguinal hernia repair with mesh. Findings Robotic assisted laparoscopic bilateral inguinal hernia repair with mesh was performed. The patient was found to have a moderate-sized direct left inguinal hernia and a small direct right inguinal hernia upon inspecting the abdomen laparoscopically. A robotic transabdominal preperitoneal approach was utilized for repair. Once a wide enough preperitoneal pocket was created on each side I then placed extra-large 3DMax mid mesh overlying each myopectineal orifice. No specimens were obtained for pathology. Description of Procedure Procedure as well as risks, benefits, and alternatives were discussed with the patient. Written consent was obtained and placed in chart prior to procedure. Patient was brought back to surgical suite. He was placed supine on operating table. Time-out was done to confirm patient and procedure. He was then intubated by Anesthesia Department. His abdomen was prepped and draped in sterile fashion using chlorhexidine prep. 0.5% bupivacaine with epinephrine was infiltrated at each location for incision. An 8 mm incision was made in the left lateral abdomen, and a 5 mm Optiview trocar was advanced through the abdominal layers under direct visualization. Once inside the abdominal cavity, carbon dioxide insufflation was used to create a pneumoperitoneum. A camera was inserted and the abdominal cavity was inspected. The patient was placed in slight Trendelenburg position. An 8 millimeter incision was made on the right lateral abdomen and an 8 millimeter trocar was inserted under direct visualization. Another 8 millimeter incision was made just superior to the umbilicus and an 8 millimeter trocar was inserted under direct visualization. The 5 mm port was then removed and this was replaced with another 8 mm robotic port. The robotic arms were brought up to the patient's bedside and secured to the ports. The camera and instruments were inserted. I then moved over to the robotic console and took control of the camera and instruments. After careful inspection of the abdominal cavity, I began scoring the peritoneum along the left lower quadrant using scissors with electrocautery. The preperitoneal plane was entered and this was carefully dissected caudally along the inferior epigastric vessels. Careful dissection with scissors with electrocautery and blunt dissection was used to continue this dissection. I dissected far enough laterally to allow for mesh placement, and also dissected medially to identify the pubic arch and Booker's ligament. The hernia sac was identified and carefully dissected posteriorly. The cord contents were also identified and the peritoneum was carefully dissected far enough posteriorly to allow for mesh placement. Once an adequate pocket was created, I then placed the mesh within the preperitoneal pocket and carefully unfolded it. The mesh was centered on the hernia defect with adequate overlap circumferentially. The inferior edge of the mesh was inspected to ensure that it was far enough away from the peritoneal edge. The mesh appeared in proper position overlying the entire myopectineal orifice. The mesh was secured using 3-0 Vicryl simple interrupted sutures in Booker's ligament, the superior medial edge, and superior lateral edge of the mesh. The peritoneum was then closed over the mesh using a 3-0 V-lock running absorbable suture. I then began scoring the peritoneum along the right lower quadrant using scissors with electrocautery. The preperitoneal plane was entered and this was carefully dissected caudally along the inferior epigastric vessels. Careful dissection with scissors with electrocautery and blunt dissection was used to continue this dissection. I dissected far enough laterally to allow for mesh placement, and also dissected medially to identify the pubic arch and Booker's ligament. The hernia sac was identified and carefully dissected posteriorly. The cord contents were also identified and the peritoneum was carefully dissected far enough posteriorly to allow for mesh placement. Once an adequate pocket was created, I then placed the mesh within the preperitoneal pocket and carefully unfolded it. The mesh was centered on the hernia defect with adequate overlap circumferentially. The inferior edge of the mesh was inspected to ensure that it was far enough away from the peritoneal edge. The mesh appeared in proper position overlying the entire myopectineal orifice. The mesh was secured using 3-0 Vicryl simple interrupted sutures in Booker's ligament, the superior medial edge, and superior lateral edge of the mesh. The peritoneum was then closed over the mesh using a 3-0 V-lock running absorbable suture. The robotic instruments were removed. The robotic arms were disengaged from the ports and moved away from the bedside. The patient was flattened out in bed, the ports were removed under direct visualization, and the pneumoperitoneum was released. The skin of the incisions was approximated using 4-0 Monocryl subcuticular suture, and Exofin glue was applied on top. The patient was awakened from anesthesia, extubated, and transferred to recovery. Implants Extra-large left and right 3DMax mid mesh Estimated Blood Loss 5 Complications No immediate complications Condition Stable Disposition Same day [facility] Billing Surgery - Charge Forward: Surgery Billing
[2024-08-23] MEDS: fentaNYL CITRATE INJ (*CRX) 100 MCG/2 ML VIAL 25 MCG IV PUSH ×6 (13:18→15:35)
[2024-08-23] MEDS: oxyCODONE HCL (*CRX) 5 MG TAB IR PO (14:38)
== END 2024-08-23 15:55 | disposition home or self-care (01) ==
PROVIDERS: PCP Family Medicine; Visit Provider Surgery
PROC: 8E0Y4CZ Robotic Assisted Procedure of Lower Extremity, Percutaneous Endoscopic Approach (ICD-10-PCS; CPT 49650; principal; 2024-08-23 11:00)
DX: K40.20 Bilateral inguinal hernia, without obstruction or gangrene, not specified as recurrent (principal); I10 Essential (primary) hypertension; J44.9 Chronic obstructive pulmonary disease, unspecified; G47.33 Obstructive sleep apnea (adult) (pediatric); N40.0 Benign prostatic hyperplasia without lower urinary tract symptoms; I25.10 Atherosclerotic heart disease of native coronary artery without angina pectoris; R73.03 Prediabetes; F32.A Depression, unspecified; F41.9 Anxiety disorder, unspecified; E87.6 Hypokalemia; E78.00 Pure hypercholesterolemia, unspecified; R00.1 Bradycardia, unspecified; M48.00 Spinal stenosis, site unspecified; F17.210 Nicotine dependence, cigarettes, uncomplicated; F12.90 Cannabis use, unspecified, uncomplicated; Z79.82 Long term (current) use of aspirin; Z79.51 Long term (current) use of inhaled steroids; Z79.02 Long term (current) use of antithrombotics/antiplatelets; Z98.890 Other specified postprocedural states; Z95.5 Presence of coronary angioplasty implant and graft; Z87.19 Personal history of other diseases of the digestive system; Z80.3 Family history of malignant neoplasm of breast; Z80.1 Family history of malignant neoplasm of trachea, bronchus and lung
CPT/HCPCS: 49650; S2900; A9270; C1781; J0690; J1100; J1596; J1885; J2003; J2250; J2405; J2704; J3010; J7120

== ENCOUNTER 2025-01-23 11:15 | Outpatient (CLI) | payer BC, SELFPAY ==
--- NOTE | ~2025-01-23 | XR_ITS ---
EXAMINATION: XR hip LT 2V w AP pelvis, 01/23/2025 11:48 KILN BURNER HELPER HISTORY: M25.552 - Pain in left hip, CHRONIC JOINT PAIN COMPARISON: No comparisons available. Findings: No acute fracture or malalignment. Moderate degenerative changes Soft tissues unremarkable. Impression: No acute fracture or malalignment. Reviewed, dictated and finalized at location P. BURNER HELPER Impression: No acute fracture or malalignment.
--- NOTE | ~2025-01-23 | XR_ITS ---
EXAMINATION: XR chest 2V, 01/23/2025 11:48 SALES REPRESENTATIVE PRINTING SUPPLIES HISTORY: ischemic cardiomyopathy, PAIN TO LEFT SIDE X 2 WEEKS COMPARISON: No comparisons available. Technique: 2 views obtained. Findings: The lungs are clear, no effusion. No pneumothorax. Heart is normal size. Mediastinal and hilar contours are within normal limits. Bony thorax no acute abnormality. Impression: No acute cardiopulmonary abnormality. Reviewed, dictated and finalized at location P. S REPRESENTATIVE PRINTING SUPPLIES Impression: No acute cardiopulmonary abnormality.
--- OUTSIDE RECORDS SUMMARY | 2025-01-23 10:45 | XMS_ITS | Encounter Summary ---
Author Organization [facility] Healthcare Address [address] [place] [address] Care Team Providers Care Precision Devices Inspector/Tester Name Role Phone Prasanna Hoang MD Primary Care Provider Reason for Visit * Reason Comments Coronary Artery Disease 5 mo f/u Encounter Details Date Type Department Care Team (Latest Contact Info) Description 01/23/2025 10:45 AM ELECTRIC BLANKET PACKER Office Visit [facility] Medical Group Cardiology [address] [facility] [address] [place] [address] Benja May MD [address] [place] [address] elevation myocardial infarction (STEMI) (Primary Dx); Presence of stent in coronary artery; Ischemic cardiomyopathy Social History Tobacco Use Types Packs/Day Years Used Date Smoking Tobacco: Every Day Cigarettes 0 Smokeless Tobacco: Never Alcohol Use Standard Drinks/Week [...] on file documented as of this encounter Last Filed Vital Signs Vital Sign Reading Time Taken Comments Blood Pressure 116/74 01/23/2025 10:36 AM ELECTRIC BLANKET PACKER Pulse 59 01/23/2025 10:36 AM ELECTRIC BLANKET PACKER Temperature - - Respiratory Rate - - Oxygen Saturation 99% 01/23/2025 10: 36 AM ELECTRIC BLANKET PACKER Inhaled Oxygen Concentration - - Weight 79.4 kg (175 lb) 01/23/2025 10:3 6 AM ELECTRIC BLANKET PACKER steel toe boots Height 180.3 cm (5' 11) 01/23/2025 10: 36 AM ELECTRIC BLANKET PACKER Body Mass Index 24.41 01/23/2025 10:36 AM ELECTRIC BLANKET PACKER documented in this encounter Progress Notes * Benja May MD - 01/23/2025 10:45 AM CST [facility] FOLLOW UP 01/23/2025 Cisco Manzo is a 64 y.o. male who presents for follow up of coronary artery disease and ischemic cardiomyopathy. This is a patient who presented initially at [facility] in December of 2018. He had chest pain and evidence of an anterior wall CO at that time. He was brought to the cleaning laborer and found to have a total occlusion of his LAD just after the ostium and underwent a emergent PCI deploying a 3.5 x 26 mm drug-eluting stent with very good anatomical result. He had no significant circumflex or right coronary disease at that time. His ejection fraction was initially felt to be depressed at about 35%. In subsequent follow-up echocardiography in January demonstrated an ejection fractionof 20% with a markedly dilated and hypodynamic LV. Because of this he was referred to electrophysiology, Dr. Celeste at [facility] to consider a ICD for primary prevention purposes. He requested a follow-up echocardiogram to recheck the ejection fraction. According to the schedule and I see in the EMR that is scheduled for 6 days from now. He echocardiogram demonstrated improvement in his LV function w ith an ejection fraction over 40% and so defibrillator implantation was not necessary and was not pursued. The patient then had a couple follow-up appointments with the nurse practitioner without anysignificant new cardiac issues. His beta-liza dosages were advanced because of hypertension. He was also reporting some rectal bleeding which he was told to bring up with his PCP for follow-up. Pennie had a hospitalization in September of 2019 at [place] with some chest pain that was atypical of angina. According to the records the patient was felt to be atypical he had a stress test suggesting anterior ischemia and so he was brought back to the cleaning laborer where his stented LAD was found to be widely patent. He returns to the office today for a scheduled six-month appointment. He is not having any cardiac symptoms. He has been having some chest pain that is obviously pleuritic in nature by his description for about 3 weeks or so now. Because of his ongoing smoking I suggested getting a chest x-ray done. He is in agreement with this He returns to the office for scheduled follow-up. His last visit last year was with the nurse practitioner and he was doing well at that time. He was not taking all of his medications reliably or on scheduled to try to save money with cost of his medication. He does not have any cardiovascular complaints or concerns today. His point of care lipids in the office are not at goal but they are improving. He is mostly concerned about his 's health she apparently has a significant cardiomyopathy is being treated at [facility] and is potentially going to have a defibrillator implanted in the near future. He also describes an episode recently where he had some lower extremity edema for several dayswhich seemed to resolve on its own without any treatment or intervention. We discussed management of edema and multitude of reasons for that. I told him it is another reason he should consider smoking cessation REVIEW OF SYSTEMS General ROS: negative for - chills, fatigue, fever, malaise, night sweats, weight gain or weight loss Psychological ROS: negative for - anxiety, depression, memory difficulties or sleep disturbances Ophthalmic ROS: negative for - blurry vision, decreased vision, loss of vision or scotomata ENT ROS: negative for - epistaxis, headaches, hearing change, nasal congestion, nasal discharge, sore throat, vertigo or visual changes Hematological and Lymphatic ROS: negative for - bleeding problems, blood clots, bruising, fatigue or weight loss Endocrine ROS: negative for - hot flashes, palpitations, polydipsia/polyuria or unexpected weight changes Respiratory ROS: negative for - cough, hemoptysis, orthopnea, shortness of breath, tachypnea or wheezing Cardiovascular ROS: negative for - chest pain, dyspnea on exertion, edema, irregular heartbeat, loss of consciousness, murmur, orthopnea, palpitations, paroxysmal nocturnal dyspnea, rapid heart rate or shortness of breath Gastrointestinal ROS: negative for - abdominal pain, appetite loss, blood in stools, constipation, diarrhea, gas/bloating, heartburn, hematemesis, melena or nausea/vomiting Genito-Urinary ROS: negative for - dysuria, erectile dysfunction or hematuria Musculoskeletal ROS: negative for - joint pain, muscle pain or muscular weakness Dermatological ROS: negative for dry skin, eczema, pruritus and rash HOME MEDICATIONS Current Outpatient Medications: acetaminophen (TYLENOL) 500 mg tablet, Take 1 tablet (500 mg total) by mouth every 6 (six) hours asneeded for pain, Disp: , Rfl: albuterol HFA (PROVENTIL HFA,VENTOLIN HFA,PROAIR HFA) 90 mcg/actuation inhaler, as needed , Disp: ,Rfl: aspirin 81 mg enteric coated tablet, Take 1 tablet (81 mg total) by mouth daily, Disp: , Rfl: Brilinta 60 mg tablet, TAKE 1 TABLET BY MOUTH TWICE A DAY, Disp: 60 tablet, Rfl: 5 carvediloL (COREG) 12.5 mg tablet, TAKE 1 TABLET BY MOUTH TWICE A DAY WITH MEALS, Disp: 60 tablet, Rfl: 11 citalopram (CeleXA) 10 mg tablet, Take 2 tablets (20 mg total) by mouth daily, Disp: , Rfl: EPINEPHrine 0.3 mg/0.3 mL auto-injection syringe, Inject 0.3 mL (0.3 mg total) into the muscle as instructed as needed, Disp: , Rfl: isosorbide mononitrate ER (IMDUR) 30 mg 24 hr tablet, Take 1 tablet (30 mg total) by mouth daily, Disp: 30 tablet, Rfl: 11 losartan (COZAAR) 100 mg tablet, TAKE 1 TABLET BY MOUTH DAILY, Disp: 30 tablet, Rfl: 1 nitroglycerin (NITROSTAT) 0.4 mg SL tablet, Place 1 tablet (0.4 mg total) under the tongue every 5 (five) minutes as needed for chest pain, Disp: 25 tablet, Rfl: 11 omeprazole (PriLOSEC) 20 mg capsule, 1 capsule (20 mg total) as needed, Disp: , Rfl: rosuvastatin (CRESTOR) 20 mg tablet, Take 1 tablet (20 mg total) by mouth daily, Disp: 90 tablet, Rfl: 3 SPIRIVA WITH HANDIHALER 18 mcg per inhalation capsule, , Disp: , Rfl: Trelegy Ellipta 200-62.5-25 mcg inhaler, daily, Disp: , Rfl: VITAMIN D2 50,000 unit capsule, once a week, Disp: , Rfl: LABS AND OTHER DIAGNOSTIC TESTS No results found for: CHOL No results found for: HDL No results found for: LDLCALC No results found for: TRIG No results found for: CHOLHDL No results found for: WBC, HGB, HCT, MCV, PLT No lab exists for component: LABALBU PHYSICAL EXAM Vitals BP 116/74 (BP Location: Left arm, Patient Position: Sitting) Pulse 59 Ht 180.3 cm (5' 11) Wt 79.4 kg (175 lb) SpO2 99% BMI 24.41 kg/m?? Physical Examination: General appearance - alert, well appearing, and in no distress, oriented to person, place, and time and acyanotic, in no respiratory distress Mental status - affect appropriate to mood Eyes - extraocular eye movements intact, sclera anicteric, no pallor Ears - external earsappear normal, hearing grossly normal bilaterally Nose - normal and patent, no erythema or discharge Mouth - mucous membranes moist, pharynx appears normal, dental hygiene good and tongue normal Neck - supple, no significant neck masses, carotids upstroke normal bilaterally, no bruits, no JVD Chest - clear to auscultation, no wheezes, rales or rhonchi, symmetric air entry, no tachypnea, retractions or cyanosis Heart - normal rate, regular rhythm, normal S1, S2, no murmurs, rubs, clicks or gallops, no JVD Abdomen - soft, nontender, nondistended, no masses or organomegaly bowel sounds normal Neurological - alert, oriented, normal speech, no focal findings or movement disorder noted Musculoskeletal - no joint tenderness, deformity or swelling, no muscular tenderness noted Extremities - peripheral pulses normal, no pedal edema, no clubbing or cyanosis Skin - normal coloration and turgor, no rashes, no suspicious skin lesions noted ASSESSMENT Cisco was seen today for coronary artery disease. Diagnoses and all orders for this visit: History of ST elevation myocardial infarction (STEMI) Presence of stent in coronary artery Ischemic cardiomyopathy PLAN/RECOMMENDATIONS Continue current regimen of anti-platelet therapy beta-liza and statin. Will order a chest x-ray because of his pruritic type chest pain and the fact that he has had smoking for many years Follow-up 6 months for us in the office He should report his pleuritic type chest pain to his PCP. He has been getting annual low-dose chest CTs done because of his ongoing smoking Benja May MD TRIC BLANKET PACKER documented in this encounter Plan of Treatment Scheduled Orders Name Type Priority Associated Diagnoses Orde r Schedule XR Chest Pa Lateral 2 Views Imaging Routine Ischemic cardiomyopathy Expected: 01/23/2025, Expires: 02/22/2025 documented as of this encounter Visit Diagnoses Diagnosis History of ST elevation myocardial infarction (STEMI)- Primary Presence of stent in coronary artery Ischemic cardiomyopathy Other specified forms of chronic ischemic heart disease documented in this encounter Discontinued Medications Medication Sig Discontinue Reason Start Date End Da te acetaminophen-codeine (TYLENOL with CODEINE #4) 300-60 mg per tablet Patient Reported 08/21/2021 01/23/2025 documented as of this encounter Care Teams Precision Devices Inspector/Tester Relationship Specialty Start Date End Date Prasanna Hoang MD [address] [facility] DEPT [place] [address] PCP - General Family Medicine 08/12/24 documented as of this encounter
--- OUTSIDE RECORDS SUMMARY | 2025-01-23 13:03 | XMS_ITS | Encounter Summary ---
Author Organization [facility] Address [address] [place] [address] Care Team Providers Care Manufacturing Lab Technician Name Role Phone Gemma Gaytan MD Primary Care Provider [phone] Benja May MD Unavailable [phone] Encounter Details Date Type Department Care Team (Late st Contact Info) Description 07/27/2023 Flash Auto Detailingt Message Enc [facility] Medical Group Multispecialty Care - [facility] [address] [facility], [address] [place] [phone] Marcell Arana MD [address] [place] [address] Personal care Social History Tobacco Use Types Packs/Day Years Used Date Smoking Tobacco: Never Assessed Cigarettes 1.5 47.8 Started: 1975 Smokeless Tobacco: Never Alcohol Use Standard Drinks/Week Comments Never 0 (1 standard drink = 0.6 oz pur e alcohol) B1300 Health Literacy Answer Date Recor ded How often do you need to hav e someone help you when you read instructions, pamphlets, or other written material from your doctor or pharmacy? Never 07/17/2023 [facility] Utilities Answer Date Recorded In the [...] or ex-partner? No 07/17/2023 Social Connection and Isolation Panel Answer Date Recorded In a typical week, [...] any clubs o r organizations such as jain groups, unions, fraternal or athletic groups, or [...] Recorded Patient Health Questionnaire-2 Score 0 07/17/2023 [facility] - Occupational [...] any time in the past 12 m [facility], were you homeless or living [...] on filedocumented in this encounter Care Teams Manufacturing Lab Technician Relationship Specialty Start Date End Date Gemma Gaytan MD [facility] [place] [address] PCP - General FAMILY PRACTICE 12/19/22 Benja May MD [address] [facility] [address] [place], [place] [id number] CARDIOVASCULAR DISEASE 03/10/23 documented as of this encounter
--- OUTSIDE RECORDS SUMMARY | 2025-01-23 13:03 | XMS_ITS | Encounter Summary ---
Author Organization [facility] Address [address] [place] [address] Care Team Providers Care Estate Manager Name Role Phone Gemma Gaytan MD Primary Care Provider [phone] Benja May MD Unavailable [phone] Encounter Details Date Type Department Care Team (Late st Contact Info) Description 08/18/2023 [email or web address] Message Enc [facility] Medical Group Multispecialty Care - [facility] [address] [facility], [address] [place] [phone] Dai Faria APRN [address] [facility] [address] [place] [address] Magnetic collar Social History Tobacco Use Types Packs/Day Years Used Date Smoking Tobacco: Every Day Cigarettes 1.5 47.8 Started: 1975 Smokeless Tobacco: Never Alcohol Use Standard Drinks/Week Comments Never 0 (1 standard drink = 0.6 oz pur e alcohol) B1300 Health Literacy Answer Date Recor ded How often do you need to hav e someone help you when you read instructions, pamphlets, or other written material from your doctor or pharmacy? Never 07/17/2023 [facility] Utilities Answer Date Recorded In [...] How often do you attend chur or protestant services? Never 07/17/2023 Do you belong to any clubs o r organizations such as roman catholic groups, unions, fraternal or athletic groups, [...] Health Questionnaire-2 Score 0 07/17/2023 [facility] Occupat ional Health - Occupational Stress [...] any time in the past 12 m [facility], were you homeless or living in a prison (including now)? No 07/17/2023 Sex and Gender [...] on filedocumented in this encounter Care Teams Estate Manager Relationship Specialty Start Date End Date Gemma Gaytan MD [facility] [place] [address] PCP - General FAMILY PRACTICE 12/19/22 Benja May MD [address] [facility] [address] [facility] 102 [place], [place] [phone] CARDIOVASCULAR DISEASE 03/10/23 documented as of this encounter
--- OUTSIDE RECORDS SUMMARY | 2025-01-23 13:03 | XMS_ITS | Encounter Summary ---
Author Organization [facility] Address [address] [place] [address] Care Team Providers Care Supply Chain Technician Name Role Phone Gemma Gaytan MD Primary Care Provider [phone] Benja May MD Unavailable [phone] Encounter Details Date Type Department Care Team (Late st Contact Info) Description 01/02/[address] [facility] Medical Group Orthopedic & Sports Medicine - [place] [address] [place] [address] Mark Maza MD [address] [place] [address] Social History Tobacco Use Types Packs/Day Years [...] on filedocumented in this encounter Care Teams Supply Chain Technician Relationship Specialty Start Date End Date Gemma Gaytan MD [address] [place] [address] [address] [place] [address] PCP - General FAMILY PRACTICE 12/19/22 Benja May MD [address] [facility] [address] [facility] 102 [place] [address] CARDIOVASCULAR DISEASE 03/10/23 documented as of this encounter
--- OUTSIDE RECORDS SUMMARY | 2025-01-23 13:03 | XMS_ITS | Clinical Summary ---
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 Gender Identity Not on file Sexual Orientation [...] Comments Hepatitis C Virus (HCV) Screening 1962 Cologuard 2007 Colonoscopy 2007 Colorectal Cancer Screening 2007 Immunochemical Fecal Occult Blood 2007 Zoster Immunization (1 of 2) 2012 PSA Discussion 2017 Respiratory Syncytial Virus (RSV) Immunization (Adult) (1 - Risk 60-74 years 1-dose series) 2022 Influenza Immunization (#1) 2024 11/0 09/2022, 01/27/2023, 01/06/2022, Additional history exists SARS-COV-2 Immunization ( - 2023- season) 2024 Pneumococcal Immunization (50+ years) (3 of 3 - PCV20 or PCV21) 03/27/2028 03/27/2023, 02/01/2019, 02/01/2019 DTaP/Tdap/Td Immunization Discontinued 02/13/2019, 11/2016 TdaP Immunization Completed 02/13/2019, 05/01/2016 Pneumococcal Immunization Combined Discontinued 03/27/2023, 02/01/2019, 02/01/2019 Hepatitis B Immunization Aged Out No longer eligible based on patient's age to complete this topic Human Papillomavirus (HPV) Immunization Aged Out No longer eligible based on patient's age to complete this topic Meningococcal Immunization (ACWY) Aged Out No longer eligible based on patient's age to complete this topic Rotavirus Immunization Aged Out No lo nger eligible based on patient's age to complete this topic Insurance Care Teams Mushroom Cultivator Relationship Specialty Start Date End Date Kailash Peres APRN, MICROPHONE BOOM OPERATOR [address] [place] [address] [address] [facility] [facility] [address] [place] [address] PCP - General Advanced Practice Nurse 04/20/17 Aki Hanson MD [address] [place] [address] Consulting Physician Oncology 08/18/23
--- OUTSIDE RECORDS SUMMARY | 2025-01-23 13:03 | XMS_ITS | Encounter Summary ---
Author Organization [facility] Address [address] [place] [address] Care Team Providers Care Forestry Support Specialist Name Role Phone Gemma Gaytan MD Primary Care Provider [phone] Benja May MD Unavailable [phone] Encounter Details Date Type Department Care Team (Late st Contact Info) Description 09/29/2023 [email or web address] Message Enc [facility] Medical Group Multispecialty Care - [facility] 3 [facility], [address] [place] [phone] Marcell Arana MD [address] [place] [address] Rehab Social History Tobacco Use Types Packs/Day [...] from your doctor or pharmacy? Never 07/17/2023 [facility] Utilities Answer Date Recorded In the [...] How often do you attend chur or anabaptism services? Never 07/17/2023 Do you belong to any clubs o r organizations such as mu-ism groups, unions, fraternal or athletic groups, or [...] Patient Health Questionnaire-2 Score 0 07/17/2023 [facility] of Occupat ional Health - Occupational [...] any time in the past 12 m [facility], were you homeless or living in a [...] Assessment Author Status Yes 07/18/2023 4:26 AM JAMEST Abbey Vasques RN Active * Because of a physical, mental, or emotional condition, do you have difficulty doing errands alone such as visiting a doctor's office or shopping? Answer Date of Assessment Author Status No 07/17/2023 9:52 PM JAMEST Abbey Vasques RN Active documented as of this encounter Mental Status * Because of a physical, mental, or emotional condition, do you have serious difficulty concentrating, remembering, or making decisions? Answer Entry Date Author Status No 07/18/2023 4:26 AM Abbey Escalante RN Active documented in this encounter Progress [...] on filedocumented in this encounter Care Teams Forestry Support Specialist Relationship Specialty Start Date End Date Gemma Gaytan MD [facility] [facility] 1 [place] [address] PCP - General FAMILY PRACTICE 12/19/22 Benja May MD [address] [facility] [address] [facility] 102 [place] [address] CARDIOVASCULAR DISEASE 03/10/23 documented as of this encounter
--- OUTSIDE RECORDS SUMMARY | 2025-01-23 13:03 | XMS_ITS | Encounter Summary ---
Author Organization [facility] Address [address] [place] [address] Care Team Providers Care Office Machine Technician Name Role Phone Gemma Gaytan MD Primary Care Provider [phone] Benja May MD Unavailable [phone] Encounter Details Date Type Department Care Team (Late st Contact Info) Description 09/14/2023 [email or web address] Message Enc [facility] Medical Group Multispecialty Care - [facility] 3 [facility], [address] [place] [phone] Marcell Arana MD [address] [place] [address] Swallowing Social History Tobacco Use Types Packs/Day [...] from your doctor or pharmacy? Never 07/17/2023 [place] Utilities Answer Date Recorded In the past [...] How often do you attend chur or cheondoism services? Never 07/17/2023 Do you belong to any clubs o r organizations such as religious groups, unions, fraternal or athletic groups, or [...] Recorded Patient Health Questionnaire-2 Score 0 07/17/2023 [facility] of Occupat ional Health - Occupational Stress [...] any time in the past 12 m [facility], were you homeless or living in a jail (including now)? No 07/17/2023 Sex and Gender [...] - 09/14/2023 10:35 AM CDT Forwarding to documented in this encounter Plan of Treatment Not on file documented as of this encounter Goals Goal Patient Goal Type Associated Problems Recent Progress Patient-Stated? Author Family - family caregiver with be involved in care transitions and discharge planning Lifestyle No Mal Alva RN documented as of this encounter Visit Diagnoses Not on filedocumented in this encounter Care Teams Office Machine Technician Relationship Specialty Start Date End Date Gemma Gaytan MD [facility]1 [facility] 1 [place] [address] PCP - General FAMILY PRACTICE 12/19/22 Benja May MD [address] [facility] [address] [facility] [address] [place] [address] CARDIOVASCULAR DISEASE 03/10/23 documented as of this encounter
--- OUTSIDE RECORDS SUMMARY | 2025-01-23 13:03 | XMS_ITS | Encounter Summary ---
Author Organization [facility] Address [address] [place] [address] Phone Care Team Providers Care Records Associate Name Role Phone Kailash Peres APRN, OPTICAL ENGINEERING MANAGER Primary Care Pro vider Aki Hanson MD Unavailable [phone] Reason for Visit * Reason Comments Medication Refill Encounter Details Date Type Department Care Team (Late st Contact Info) Description 08/17/2023 Refill [facility] [address] [address] Aki Hanson MD [address] [place] [phone] Medication Refill Social History Tobacco Use Types Packs/Day Years Used Date Smoking Tobacco: Every Day Cigarettes Smokeless Tobacco: Never Alcohol Use Standard Drinks/Week Comments Not Currently 0 (1 standard drink = 0.6 oz pur e alcohol) Sex and Gender Information Value Date Recorded Sex Assigned at Not on file Legal 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
--- OUTSIDE RECORDS SUMMARY | 2025-01-23 13:03 | XMS_ITS | Clinical Summary ---
Author Organization [facility] Address [address] [place] [address] Care Team Providers Care Machine Compositor Name Role Phone Gemma Morales MD Primary Care Provider [phone] Source Comments [facility],non-owned Affiliates and Associated Physician Practices is amultiple site organization consisting of ambulatory clinics and hospital sitesin [place], [place], [place] and [place]. This disclosure is being madepursuant to the Care Everywhere program and may not contain all information available regarding this patient. 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 Gender Identity Not on file Sexual Orientation [...] 1:52 PM CDT Height 180.3 cm (5' 11) 08/13/2021 1:52 PM CDT Body Mass Index [...] 1981 ZOSTER VACCINE (1 of 2) 2012 DEPRESSION SCREENING 03/23/2024 SCREENING FOR DIABETES 06/26/2024 06/26/2021 COVID-19 VACCINE ( season) 2024 INFLUENZA VACCINE (#1) 2024 3, 02/04/2021, 12/30/2018, Additional history exists Respiratory Syncytial [...] 7 - 26 mg/dL 06/26/2021 12:56 AM [facility] Creatinine 0.81 0.71 - 1.16 mg/dL 06/26/2021 12:56 AM [facility] Sodium 138 136 - 145 mmol/L 06/26/2021 12:56 AM [facility] Potassium 3.5 3.5 - 4.5 mmol/L 06/26/2021 12:56 AM [facility] Chloride 105 98 - 107 mmol/L 06/26/2021 12:56 AM [facility] CO2 22 22 - 29 mmol/L 06/26/2021 12:56 AM [facility] Glucose 94 70 - 115 mg/dL 06/26/2021 12:56 AM [facility] Calcium 8.4 8.4 - 10.2 mg/dL 06/26/2021 12:56 AM CDT [facility] Anion Gap 15 8 - 18 06/26/2021 12:56 AM [facility] BUN/Creatinine Ratio 10 7 - 23 06/26/2021 12:56 AM [facility] Osmolality Calculated 284 270 - 300 mOsm/kg 06/26/2021 12:56 AM [facility] eGFR by CKD-EPI >90 >=90 mL/min/1.7 3 m2 06/26/2021 12:56 AM [facility] Blood BLOOD SPECIMEN / Unknown Venipuncture / Unknown 06/26/2021 12:23 AM CDT 06/26/2021 12:29 AM CDT Emiliano Collins MD LAB - CHEMISTRY ORDERABLES Final Result [facility] [address] [place] [address], [facility] [phone] from Last 3 Months or Most Recently Relevant to Health Maintenance Insurance [facility] [address] [facility] [place] [address] Advance Directives * Full Code (Latest Code Status on File) Date Activated Date Inactivated Comments 06/26/2021 12:52 AM 06/27/2021 6:47 PM Care Teams Machine Compositor Relationship Specialty Start Date End Date Gemma Morales MD [address] [place] [address] [address] [place] [address] PCP - General Family Medicine 06/24/21
--- OUTSIDE RECORDS SUMMARY | 2025-01-23 13:03 | XMS_ITS | Encounter Summary ---
Author Organization [facility] Address [address] [place] [address] Care Team Providers Care Ultimate Hoops Scoreboard Operator Name Role Phone Gemma Gaytan MD Primary Care Provider [phone] Benja May MD Unavailable [phone] Encounter Details Date Type Department Care Team (Late st Contact Info) Description 03/04/2024 Optonyt Message Enc [facility] Medical Group Multispecialty Care - [facility] [address], [address] [place] [phone] Marcell Arana MD [address] [place] [address] Prednisone Social History Tobacco Use Types Packs/Day [...] from your doctor or pharmacy? Never 07/17/2023 [facility] Utilities Answer Date Recorded In the past [...] any clubs o r organizations such as rastafari groups, unions, fraternal or athletic groups, or [...] Recorded Patient Health Questionnaire-2 Score 0 07/17/2023 [facility] of Occupat ional Health - Occupational Stress [...] any time in the past [address] [facility], were you homeless or living in a [...] on filedocumented in this encounter Care Teams Ultimate Hoops Scoreboard Operator Relationship Specialty Start Date End Date Gemma Gaytan MD [address] [place] [address] PCP - General FAMILY PRACTICE 12/19/22 Benja May MD [address] [place], [place] [id number] CARDIOVASCULAR DISEASE 03/10/23 documented as of this encounter
--- OUTSIDE RECORDS SUMMARY | 2025-01-23 13:04 | XMS_ITS | Clinical Summary ---
Author Organization [facility] Address [address] [place] [address] Care Team Providers Care Orthodontist Small Business Owner Name Role Phone Prasanna Hoang MD Primary Care Provider [phone] Allergies Active Allergy Reactions Criticality Noted Date Comments Bee Venom Protein (Honey Bee) Anaphylaxis High 09/28 Honey bees Tramadol Nausea only Low 12/30/2018 Venom-Honey Bee [...] daily Active EPINEPHrine 0.3 mg/0.3 mL auto-injection syringeIndicati ons:Anaphylaxis Inject 0.3 mL (0.3 mg total) into the muscle as instructed as needed Active albuterol HFA (PROVENTIL HFA,VENTOLIN HFA,PROAIR HFA) 90 mcg/actuation inhaler as needed 0 Active Trelegy Ellipta 200-62.5-25 mcg inhaler daily 1 Active omeprazole (PriLOSEC) 20 mg capsule 1 capsule (20 mg total) as needed 1 Active losartan (COZAAR) 100 mg tablet TAKE 1 TABLET BY MOUTH DAILY 30 tablet 1 2 Active rosuvastatin (CRESTOR) 20 mg tabletIndicatio ns:Coronary artery disease involving [place] coronary artery of [place] heart without angina pectoris Take 1 tablet (20 mg total) by mouth daily 90 tablet 3 4 Active Brilinta 60 mg tabletIndicatio ns:Presence of stent in coronary artery TAKE 1 TABLET BY MOUTH TWICE A DAY 60 tablet 5 4 Active isosorbide mononitrate ER (IMDUR) 30 mg 24 hr tabletIndicatio ns:Chest pain, unspecified type Take 1 tablet (30 mg total) by mouth daily 30 tablet 11 5 04/19/19 26 Active nitroglycerin (NITROSTAT) 0.4 mg SL tabletIndicatio ns:Chest pain, unspecified type Place 1 tablet (0.4 mg total) under the tongue every 5 (five) minutes as needed for chest pain 25 tablet 11 5 Active carvediloL (COREG) 12.5 mg tabletIndicatio ns:Cardiomyopat hy, ischemic TAKE 1 TABLET BY MOUTH TWICE A DAY WITH MEALS 60 tablet 11 5 Active acetaminophen-c odeine (TYLENOL with CODEINE #4) 300-60 mg per tablet 2 01/24/20 25 Discontin ued(Patie nt Reported) Active Problems Problem Noted Date Diagnosed Date Ischemic cardiomyopathy 08/12/[address] elevation myocardial infarction ([place]) 02/08/2019 Essential hypertension 02/08/2019 Presence of stent in coronary artery 02/08/2019 Visit for wound check 01/20/2019 Resolved Problems Problem Noted Date Diagnosed Date Resolved Date NICM (nonischemic cardiomyopathy) 05/05/2019 06/09/2019 Encounters Date Type Department Care Team Description 01/23/2025 10:45 AM LINING STAMPER Office Visit [facility] Medical Group Cardiology [address] [place] [address] Benja May MD History of ST elevation myocardial infarction (STEMI) (Primary Dx); Presence of stent in coronary artery; Ischemic cardiomyopathy from Last 3 Months Immunizations Immunization Administration Dates Next Due Influenza, Quadrivalent, Spl it, Preservative Free, Intramuscular 12/30/2018 Pneumococcal Conjugate PCV 13 02/01/2019 Tdap 02/13/2019 Surgical History Surgery Date Site/Laterality Comments PROSTATE SURGERY 05/21/2018 - 06/20/2018 HERNIA REPAIR umbilical CORONARY ARTERY BYPASS GRAFT CORONARY ANGIOPLASTY Medical History Medical History Date Comments Hypertension Hyperlipidemia COPD (chronic obstructive pulmonary disease) Rupture, spleen Family History Medical History Relation [...] Comments Blood Pressure 116/74 01/23/2025 10:36 AM LINING STAMPER Pulse 59 01/23/2025 10:36 AM LINING STAMPER Temperature 37 C (98.6 F) 09/14/2021 6:12 PM CDT Respiratory Rate 20 09/14/2021 6:12 PM CDT Oxygen Saturation 99% 01/23/2025 10: 36 AM LINING STAMPER Inhaled Oxygen Concentration - - Weight 79.4 kg (175 lb) 01/23/2025 10:3 6 AM LINING STAMPER steel toe boots Height 180.3 cm (5' 11) 01/23/2025 10: 36 AM LINING STAMPER Body Mass Index 24.41 01/23/2025 10:36 AM LINING STAMPER Plan of Treatment Health Maintenance Due Date Last Done Comments Colon Cancer Screening-Colonoscopy 1962 Depression Screening 1962 Hepatitis C Screening 1962 Prostate Cancer Screening-PSA 1962 Hepatitis B Screening 1980 Regular Well Visit/Exam 18-64 1980 Pneumococcal vaccine <65 (2 of 2 - PPSV23, PCV20, or PCV21) 05/22/2023 03/27/2023, 02/01/2019, 02/01/2019 Zoster Vaccine (2 of 2) 03/11/2024 01/15/2024 Influenza Vaccine (#1) 2024 , 01/27/2023, 01/06/2022, Additional history exists DTaP/Tdap/Td Vaccine (3 - Td or Tdap) 02/13/2029 02/13/2019, 05/01/2016 Insurance [facility] CHOICE PLUS [email or web address] ACCESS OOS Care Teams Orthodontist Small Business Owner Relationship Specialty Start Date End Date Prasanna Hoang MD [facility] [place] [address] PCP - General Family Medicine 08/12/24
--- OUTSIDE RECORDS SUMMARY | 2025-01-23 13:04 | XMS_ITS | Encounter Summary ---
Author Organization [facility] Address [address] [place] [address] Care Team Providers Care Collar Tacker Name Role Phone Gemma Gaytan MD Primary Care Provider [phone] Benja May MD Unavailable [phone] Encounter Details Date Type Department Care Team (Late st Contact Info) Description 11/26/2023 Axigen Messagingt Message Enc [facility] Medical Group Multispecialty Care - [facility] [address], [address] [place] [phone] Marcell Arana MD [address] [place] [address] Upcoming appointment Social History Tobacco Use Types [...] from your doctor or pharmacy? Never 07/17/2023 [facility] Utilities Answer Date Recorded In the [...] How often do you attend chur or methodist services? Never 07/17/2023 Do you belong to any clubs o r organizations such as christian groups, unions, fraternal or athletic groups, or [...] Recorded Patient Health Questionnaire-2 Score 0 07/17/2023 [facility] of Occupat ional Health - Occupational [...] any time in the past 12 m [facility], were you homeless or living in [...] on filedocumented in this encounter Care Teams Collar Tacker Relationship Specialty Start Date End Date Gemma Gaytan MD [facility] [place] [address] PCP - General FAMILY PRACTICE 12/19/22 Benja May MD [address] [facility] [address] [facility] [address] [place], [place] [phone] CARDIOVASCULAR DISEASE 03/10/23 documented as of this encounter
--- OUTSIDE RECORDS SUMMARY | 2025-01-23 13:04 | XMS_ITS | Encounter Summary ---
Author Organization [facility] Address [address] [place] [address] Care Team Providers Care Sliver Lapper Name Role Phone Gemma Gaytan MD Primary Care Provider Benja May MD Unavailable [phone] Encounter Details Date Type Department Care Team (Late st Contact Info) Description 10/26/2023 GoProt Message Enc [facility] Medical Group Multispecialty Care - [facility] [address], [address] [place] [phone] Marcell Arana MD [address] [place] [address] Toroidal Social History Tobacco Use Types Packs/Day [...] your doctor or pharmacy? Never 07/17/2023 [facility] Utilities Answer Date Recorded In the past [...] How often do you attend chur or scientologist services? Never 07/17/2023 Do you belong to any clubs o r organizations such as presybeterian groups, unions, fraternal or athletic groups, or [...] any time in the past 12 m [facility], were you homeless or living in a long term (including now)? No 07/17/2023 Sex and Gender [...] - 10/27/2023 7:41 AM CDT Forwarding to documented in this encounter Plan of Treatment Not on file documented as of this encounter Goals Goal Patient Goal Type Associated Problems Recent Progress Patient-Stated? Author Family - family caregiver with be involved in care transitions and discharge planning Lifestyle No Mal Alva RN documented as of this encounter Visit Diagnoses Not on filedocumented in this encounter Care Teams Sliver Lapper Relationship Specialty Start Date End Date Gemma Gaytan MD [facility] [address] [place] [address] PCP - General FAMILY PRACTICE 12/19/22 Benja May MD [address] [facility] [address] [place], [place] [phone] CARDIOVASCULAR DISEASE 03/10/23 documented as of this encounter
--- OUTSIDE RECORDS SUMMARY | 2025-01-23 13:04 | XMS_ITS | Clinical Summary ---
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 Never 07/17/2023 [facility] Utilities Answer Date Recorded In the past 12 months has [facility] [place], gas, oil, or water [employer] threatened to shut off services in your [...] How often do you attend [facility] or temple services? Never 07/17/2023 Do you belong to [...] Recorded Patient Health Questionnaire-2 Score 0 07/17/2023 [facility] of Occupat ional [facility] - Occupational Stress Questionnaire Answer Date Recorded [...] any time in the past 12 m [facility], were you homeless or living in a [...] 10:45 AM CDT Height 180.3 cm (5' 11) 11/30/2023 10:45 AM CDT Body Mass Index 26.78 11/30/2023 10:45 AM CDT Plan of Treatment Health Maintenance Due Date Last Done Comments Colorectal Cancer Screening Colonoscopy (10 Years) 1962 Annual Physical 1965 Hepatitis C 1980 Zoster Vaccines (1 of 2) 2012 PHQ-2 (Physician [place]) 03/23/2024 07/17/2023 COVID-19 Vaccine ( - season) 2024 Influenza Adult (#1) 2024 01/27/2023, 01/06/2022, 02/04/2021, Additional history exists Pneumococcal Vaccine: 50+ Years (3 of 3 - PCV20 or PCV21) 03/27/2028 03/27/2023, 02/01/2019 DTaP, Tdap and Td Vaccines (3 - Td or Tdap) 02/13/2029 02/13/2019, 05/01/2016 RSV Immunization or 60+ Years (1 - 1-dose 75+ series) 2037 Hepatitis A Vaccines Aged Out No long er eligible based on patient's age to complete this topic Meningococcal B Vaccine Aged Out No l onger eligible based on patient's age to complete this topic Meningococcal Vaccine Aged Out No emerita estefany eligible based on patient's age to complete this topic RSV Immunizations Under 20 Months Aged Out No longer eligible based on patient's age to complete this topic Goals Goal Patient Goal Type Associated Problems Recent Progress Patient-Stated? Author Family - family caregiver with be involved in care transitions and discharge planning Lifestyle No Mal Alva, RN Medical Devices Implanted Type Area Rag Cutting Machine Tender Device Identifier Shelf Expiration Date Model / Serial / Lot Graft Infuse Bone Xsmall - [id number] Implanted:Qty: 1 on 07/20/2023 by Marcell Arana MD at [facility] N/A: Spine Cervical [employer] [id number] 08/21/2024 [id number] / / [id number] C Putty [place] Matrix Dbm/Dbf Bone l - [id number] Implanted:Qty: 1 on 07/20/2023 by Marcell Arana MD at [facility] N/A: Spine Cervical [employer] [id number] 06/18/2025 [id number] / [id number] / Medtronic Endoskeleton Tc Interbody System Implanted:Qty: 1 on 07/20/2023 by Marcell Arana MD at [facility] N/A: Spine Cervical [employer] [id number] 04/30/2028 [id number] -N / / [id number] Description:C4-C5 Medtronic Endoskeleton Tc Interbody System Implanted:Qty: 1 on 07/20/2023 by Marcell Arana MD at [facility] Cage N/A: Spine Cervical [employer] [id number] 04/30/2028 0764-3902 -N / / [id number] Description:C3-C4 80 Mm Elite Plate Implanted:Qty: 1 on 07/20/2023 by Marcell Arana MD at [facility] Plate N/A: Spine Cervical [employer] . [id number] / / . 4.0 X 16 Mm Screws Implanted:Qty: 10 on 07/20/2023 by Marcell Arana MD at [facility] Screw N/A: Spine Cervical [employer] . [id number] / / . Nanolock [employer] Mmn Endoskeleton Tc Interbody System Implanted:Qty: 1 on 07/20/2023 by Marcell Arana MD at [facility] Spacer N/A: Spine Cervical [id number] 03/26/2028 / / [id number] Description:C6-C7 [employer] Mmn Endoskeleton Tc Interbody System Implanted:Qty: 1 on 07/20/2023 by Marcell Arana MD at [facility] Spacer N/A: Spine Cervical [employer] [id number] 04/23/2028 3051-2468 -N / / [id number] Description:C5-C6 Explanted Type Area Rag Cutting Machine Tender Device Identifier Shelf Expiration Date Model / Serial / Lot Distration Pin 12mm - [id number] Explanted:Qty: 1 on 07/20/2023 by Marcell Arana MD at [facility] Pin N/A: Spine Cervical [employer] DP-12-TB / / Distration Pin 12mm - [id number] Explanted:Qty: 1 on 07/20/2023 by Marcell Arana MD at [facility] Pin N/A: Spine Cervical [employer] DP-12-TB / / Plate Holding Pin Explanted:Qty: 3 on 07/20/2023 by Marcell Arana MD at [facility] Pin N/A: Spine Cervical [employer] . [id number] / / . Insurance [facility] Advance Directives * Full Code (Latest Code Status on File) Date Activated Date Inactivated Comments 07/20/2023 6:45 PM 07/22/2023 2:50 PM * Full Code Date Activated Date Inactivated Comments 07/17/2023 5:24 PM 07/20/2023 6:45 PM Care Teams Bolt Man Relationship Specialty Start Date End Date Gemma Gayatn MD [facility] [place] [address] PCP - General FAMILY PRACTICE 12/19/22 Benja May MD [address] [facility] [address] [facility] [address] [place] [address] CARDIOVASCULAR DISEASE 03/10/23
== END 2025-01-23 11:16 | disposition home or self-care (01) ==
PROVIDERS: PCP Family Medicine; Visit Provider Orthopaedic Surgery
DX: M25.552 Pain in left hip (principal); I25.5 Ischemic cardiomyopathy
CPT/HCPCS: 71046; 73502